=== PATIENT | female | born 1940 | race Caucasian/White ===

== ENCOUNTER → 2019-09-24 15:37 | Outpatient (CLI) | payer MEDICARE, OTHER, SELFPAY ==
[2019-09-25 20:45] LABS: COVID19 Sendout Not Detected (Not Detect)
== END ==
PROVIDERS: PCP Internal Medicine; Visit Provider Physician Assistant
DX: Z11.59 Encounter for screening for other viral diseases (principal)
CPT/HCPCS: 87635

== ENCOUNTER 2019-09-27 10:39 | Inpatient (IN) | payer MEDICARE, OTHER, SELFPAY ==
[2019-09-19 12:57] VITALS: BMI 34.3
[2019-09-27] VITALS (19 sets, daily range): BP systolic 104–155; BP diastolic 51–97; PULSE 16–77; RESP 12–19; TEMP 36.1–37.1; O2SAT 94–99; BMI 34.3
--- NOTE | 2019-09-27 | DI.RAD.S_ITS ---
PROCEDURE: XR CERVICAL SPINE 2V OR 3V INDICATIONS: C56 ANTERIOR CERVICAL DISCECTOMY WITH FUSION AND BONE GRAFT TECHNIQUE: 2 fluoroscopic view(s) of the cervical spine were acquired. [facility], [facility], 14:35. FINDINGS: C5-C6 disc level is identified. IMPRESSION: Fluoroscopic guidance was provided for cervical spine procedure. Dictated by: Harvey Castro M.D. on 09/27/2019 at 13:44 Approved by: Harvey Castro M.D. on 09/27/2019 at 13:49
--- NOTE | 2019-09-27 11:16 | PM.PREOP ---
Pre-operative Note COVID-19 COVID-19 status: Negative Result date/Date tested (Pos, Neg/Pending): 09/24/19 Interval Note History & Physical reviewed/Exam performed by Physician: Yes Changes to H&P: No H&P completed within 30 days and has changed as indicated here:: She had an asymptomatic UTI treated by urology with antibiotics last week. Currently asymptomatic.
--- NOTE | 2019-09-27 11:18 | PM.OP.1 ---
Operative Date/Time/Diagnoses Date of procedure: 09/27/19 Time of procedure: 13:04 Pre-op diagnosis: Cervical stenosis with myelopathy Post-op diagnosis: same Procedure & Clinicians Procedure: C5-6 anterior cervical diskectomy and fusion with cage Iliac crest bone graft aspirate Use of microscope Same procedure as scheduled: Yes Indications: [age] year old female with progressive myelopathy from cervical stenosis. They had failed conservative management and requested operative intervention. Risks and benefits of surgery were discussed and appropriate consents were obtained. Surgeon: Jerry Rojas Tool And Die Engineer: Fadumo Jung Anesthesia Type: General Operative Notes Findings: None Closure Type: primary Specimen(s): none sent Prosthetic devices, grafts, tissues, transplants, or devices: Delmy MARÍA ELENA-C Estimated Blood Loss (mL): 5 Procedure in detail: Patient was brought to the operating room and intubated on the table. A time-out was performed. Preoperative antibiotics were given. The neck was prepped and draped in the standard sterile fashion. Using a skin fold, we made a 3 cm oblique incision on the left side. We used Bovie to go through the platysma and then did a standard anterolateral blunt dissection down to the precervical fascia. Fascia was nicked and elevated up. A marker was placed and x-ray was taken for localization. We then subperiosteally elevated up the longus colli muscles. Self-retaining retractors were placed. Prospect pins were placed. We then brought in the microscope. A scalpel used to perform an annulotomy. We then used a combination of pituitaries and curettes and Kerrison to perform a complete anterior diskectomy at C5-6. We used the bur to take down the posterior osteophytes. We took down the PLL and used Kerrison to remove any posterior disc material and osteophytes. At the end we could from the nerve hook cephalad caudally and out the foramen and everything was opened. A small stab incision was made over the left anterior iliac crest. A Jamshidi needle was advanced into the pelvis and 2 mL of bone marrow was aspirated. We then used the trials. We then packed a 14 x 17 x 6 mm MARÍA ELENA-C cage with Primagen bone graft and the iliac crest harvest. The cage was placed under fluoroscopic guidance. We then placed our two locking plates. The self-retaining retractors and Prospect pins were removed and final x-rays taken. The wound was irrigated. There was no bleeding. The carotid was beating nicely. The platysma was closed. The superficial was closed. The skin was closed. A sterile dressing was placed. They were then extubated and brought to recovery room with no complications. Complications: none Post-operative Condition: stable Disposition: PACU Plan for aftercare: Inpatient for overnight admission. Mobilize with PT.
[2019-09-27] MEDS: LACTATED RINGERS 1,000 ML 42 ML IV (11:26)
[2019-09-27] MEDS: CEFAZOLIN 2 GM/100 ML FROZ.PIGGY IV ×2 (12:10→21:11)
--- NOTE | 2019-09-27 12:24 | SUR.OPER ---
Supine on padded OR bed, head on gel donut, towel between shoulder blades, arms padded and tucked at side, legs uncrossed, safety belt at thigh, tape over blanket over lower legs .
[2019-09-27] MEDS: THROMBIN (RECOMBINANT) 5,000 UNIT VIAL 5000 UNIT TOP (12:31)
[2019-09-27] MEDS: BUPIVACAINE 0.25% W/ EPI 30 ML VIAL 60 ML INJ (12:32)
[2019-09-27] MEDS: SODIUM CHLORIDE 0.9% 1,000 ML, GENTAMICIN 80 MG IRR (12:34)
[2019-09-27] MEDS: MORPHINE 10 MG/ML INJ IV ×2 (13:43→13:56)
[2019-09-27] MEDS: fentaNYL 100 MCG/2 ML INJ IV (13:43)
--- NOTE | 2019-09-27 15:05 | PC.NURSE ---
Day Shift- Report rec'd from INESSA Cabrera in PACU at 1420. Pt arrived to unit room 217 at 1432 via bed. Pt awake, does close eyes with conversation, awakens easily. States 6/10 aching to posterior left side of neck. Soft collar in place. Left hip bone graft site dressing of gauze and tegaderm CDI. Pt also has multiple abrasions and scabs to legs and arms. Pt oriented to call light, no urge to void. Brief report given to fur blender for admission. Evening RN aware that pt wants to speak with her daughter Geno. Bed alarm on.
[2019-09-27] MEDS: HYDROCODONE/ACET 5/325 TABLET 1 TAB PO (15:20)
[2019-09-27] MEDS: LACTATED RINGERS 1,000 ML 125 ML IV (15:21)
[2019-09-27] MEDS: NYSTATIN CREAM 30 GM 1 APPLIC TOP ×2 (16:26→21:13)
[2019-09-27] MEDS: GABAPENTIN 600 MG TABLET PO (21:11)
[2019-09-27] MEDS: DOCUSATE 100 MG CAPSULE PO (21:11)
[2019-09-27] MEDS: INSULIN GLARGINE 100 UNIT/ML 3ML PEN 20 UNIT SUBCUT (21:11)
[2019-09-27] MEDS: IRBESARTAN 150 MG TABLET PO (21:13)
[2019-09-27] MEDS: PANTOPRAZOLE 20 MG TABLET PO (21:14)
[2019-09-27] MEDS: ROSUVASTATIN 10 MG TABLET 5 MG PO (21:14)
[2019-09-27] MEDS: SENNOSIDES 8.6 MG TABLET 17.2 MG PO (21:15)
[2019-09-28] MEDS: LACTATED RINGERS 1,000 ML 125 ML IV (01:32)
[2019-09-28] MEDS: CEFAZOLIN 2 GM/100 ML FROZ.PIGGY IV (04:04)
[2019-09-28 05:00] VITALS: BP 157/61; PULSE 85; RESP 16; TEMP 36.8; O2SAT 94
--- NOTE | 2019-09-28 06:57 | PC.NURSE ---
Dr. Woodruff notified with CBG of 473, & desat. with 3 liters to 90-92 %. Coughing when she drink a sips of water. RT. notified suctioned her orally not able to suctioned any secretions. Pt. statesmy mouth is to dry. Order received to have medical consults, EDGARD Kilgore notified. Stat. lab glucose also ordered, will report to day RN.
[2019-09-28 07:12] LABS: BUN Creatinine Ratio 20.8 (6-22); Blood Urea Nitrogen 16 mg/dL (7-17); Calcium 8.9 mg/dL (8.4-10.2); Carbon Dioxide 32 mmol/L (22-32); Chloride 99 mmol/L (98-107); Estimated Glomerular Filt Rate > 60.0 mL/min (>60); Glucose 152 mg/dL (80-110); HEMOLYSIS < 15 (0-50); Magnesium 1.8 mg/dL (1.6-2.3); Phosphorous 4.2 mg/dL (2.8-4.1); Potassium 4.3 mmol/L (3.4-5.1); Sodium 134 mmol/L (137-145)
[2019-09-28] MEDS: INSULIN REGULAR 100 UNIT/ML 3 ML VIAL IV (07:15)
--- NOTE | 2019-09-28 07:34 | PM.EVENT ---
Event Note Date Patient Seen: 09/28/19 Time Patient Seen: 07:34 Event Note: Called by nursing approximately 6:50 a.m. Patient is day 1 status post cervical fusion with Dr. orona. Dressing found patient somewhat somnolent this morning. As sats 91% on 3 L increased this to 5 L--fingerstick glucose was in the 450s. Internal medicine was consulted. Insulin administered and frequent monitoring and fingerstick glucoses. And blood labs drawn.
[2019-09-28 08:00] VITALS: BP 125/67; PULSE 74; RESP 17; TEMP 36.6; O2SAT 95
--- NOTE | 2019-09-28 08:00 | P.PN_ITS ---
Subjective Subjective Date Patient Seen: 09/28/19 Time Patient Seen: 08:00 Interval history: She was very somnolent earlier this morning. She had a glucose of 473, but only 1-1/2 hours after a glucose of 182. She was given 5 units of insulin and her repeat check was 152. She is feeling a little bit groggy but waking up now. She just feels like she wants to cough up some phlegm in her throat. No arm pain but the neck is sore. Exam Vital Signs (past 8 hours): - 09/28/19 05:00 Temperature 98.2 F Pulse Rate 85 Respiratory Rate 16 Blood Pressure 157/61 H Pulse Oximetry 94 Oxygen Delivery Method Nasal Cannula Oxygen Flow Rate 0 Const Orientation: alert and oriented x3 Back/Spine/Pelvis Other: CDI. 5/5 motor except 4/5 left printed circuit board drafter Objective Labs Result Diagrams: 09/28/19 06:55 Labs: Laboratory Results - last 24 hr 09/28/19 09/28/19 06:55 06:55 Sodium 134 L Potassium 4.3 Chloride 99 Carbon Dioxide 32 BUN 16 Creatinine 0.77 Estimated GFR > 60.0 BUN/Creatinine Ratio 20.8 Glucose Cancelled 152 H Calcium 8.9 Phosphorus 4.2 H Magnesium 1.8 Assessment & Plan Post-op Postoperative Procedures: Procedures Operation Date: 09/27/19 12:15 Actual Procedures Side Surgeon p C56 anterior cervical discectomy & fusion w/ bone graft Jerry Rojas MD She only had 1 Vicodin yesterday and has not had any IV pain medication on the APR. I do not know if this was over sedation or hyperglycemia but she seems much more alert now. Her high blood sugar has quickly corrected back down to the normal range we will check a fingerstick again. I discussed this with Medicine and they will be available to see her if anything changes but for now she is back to baseline. Plan is to get her up with physical therapy today.
--- NOTE | 2019-09-28 09:10 | PT.IIE ---
Current Diagnoses Spinal stenosis, cervical region (09/27/19) Other cervical disc displacement, unspecified cervical region (09/27/19) Strain of muscle, fascia and tendon at neck level, initial encounter (09/27/19) Surgery Performed Operation Date: 09/27/19 12:15 Actual Procedures p C56 anterior cervical discectomy & fusion w/ bone graft - Jerry Rojas MD Surgical History (Last Updated 09/19/19 @ 13:28 by Sola Rizzo RN) History of arthroplasty of left knee (Acute ~2016) History of bladder surgery (Acute) History of hysterectomy (Acute) History of lumbar surgery (Acute) Hx of bilateral cataract extraction (Acute) Hx of breast reduction, elective (Acute) Hx of hernia repair (Acute) Hx of left breast biopsy (Acute) Hx of toe surgery (Acute) Hx of tonsillectomy (Acute) Hx of unilateral oophorectomy (Acute) Medical History (Last Updated 09/20/19 @ 12:18 by Sola Rizzo RN) Arthritis (Acute) Godfrey's esophagus (Acute) CAD (coronary artery disease) (Acute) Carotid artery disease (Acute) CKD (chronic kidney disease) (Acute) Depression (Acute) Diabetes (Acute) GERD (gastroesophageal reflux disease) (Acute) HLD (hyperlipidemia) (Acute) HTN (hypertension) (Acute) Poor balance (Acute) Tremor of both hands (Acute) Physical Therapy Inpatient Evaluation/Re-Eval M1 PT/OT-IP Prior Functional Status Start: 09/28/19 11:42 Freq: NEEDED Status: Active Protocol: Document 09/28/19 09:10 AB (Rec: 09/28/19 11:56 AB [id number]) Medical Review Prior Functional Status Medical History Reviewed Yes Communication able to make needs known but with confusion Mobility and Gait pt stated that she is modified independent with all mobilities and ambulation using either a FWW or a SPC indoors but occasionally without AD and uses a 4WW for outdoor mobility Social History Household Members children Living Arrangements Mobile home Number of Floors (Floors) One Floor Number of Stairs To Enter/Railing? 4 steps to enter with L rail ascending Home Environment High Toilet,Walk in Shower Home Equipment Front Wheel Walker,Four Wheel Walker,Straight Cane,Shower Seat with Backrest,Hand Held Shower,Grab Bars Near Toilet, Grab Bars In Shower Additional Social History Comment has a regular bed with R sided rail M2 PT-IP Current Condition Start: 09/28/19 11:42 Freq: NEEDED Status: Active Protocol: Document 09/28/19 09:10 AB (Rec: 09/28/19 11:56 AB [email or web address]) Physical Therapy Current Condition Current Condition Evaluation Date 09/28/19 Treatment Diagnosis s/p C5-6 ACDF; difficulty in walking Onset Date 09/27/19 Precautions Cervical Spine Precautions Soft Collar for Comfort,No Heavy Lifting,Log Roll Other Precautions falls M3 PT-IP Subjective Start: 09/28/19 11:42 Freq: NEEDED Status: Active Protocol: Document 09/28/19 09:10 AB (Rec: 09/28/19 11:56 AB [email or web address]) Subjective Physical Therapy Visit Type Type Initial Evaluation Visit Start Time 09:10 Visit Stop Time 10:00 Total Visit Minutes 50 Number of SITE SAFETY COORDINATOR Visits 0 Physical Therapy Visit Comments Patient Comments pt is drowsy and requires constant cues to stay awake; requested to use the toilet M4 PT-IP Mobility and Gait Start: 09/28/19 11:42 Freq: NEEDED Status: Active Protocol: Document 09/28/19 09:10 AB (Rec: 09/28/19 11:56 AB [email or web address]) PT-Bed Mobility Assessment Rolling Type of Rolling Log Rolling Level of Assist Maximal Assistance,1 Person Assistance,2 Person Assistance Supine to Sit Supine to Sit Maximum Assistance,2 Person Assistance Sit to Supine Sit to Supine Bedrails Scooting Scooting to Edge of Bed Maximum Assistance PT-Transfer Assessment Sit to and From Stand Sit to and from Stand Maximum Assistance,2 Person Assistance,Use of Upper Extremities Equipment Transfer Assistive Device Gait Belt,Front Wheeled Walker Orthotic/Prosthetic Devices or Brace: No Transfers Transfer Destination Bedside Commode Transfer Technique Stand Step Pivot Transfer Ability Level of Assist Maximum Assistance,2 Person Assistance,Use of Upper Extremities Comments Mobility Comments educated on cervical precautions. pt is very drowsy but agreeable to get up and requested to use the toilet. completed log roll supine to sit max A x 2 and max cues requiring 3 attempts to complete the task. pt required max A for scooting to EOB. required mod A to maintain sitting balance on EOB. completed max A x 2 for sit to stand from EOB x 2 attempts. completed step transfer using FWW to bedside commode. completed sit to stand max A x 2 from bedside commode. pt able to maintain standing using FWW for support max A while NAC assisted pt with hygiene care and brief management. completed step transfer to chair max A x 2 and max cues. positioned pt on chair. call light and table placed within reach. Gait Assessment Comments Gait Comments unable at this time but able to take steps during transfers max A x 2 PT-Balance Assessment Sitting Balance and Reactions Static Sitting Balance Ability Fair Dynamic Sitting Balance Ability Poor Standing Balance and Reactions Static Standing Balance Ability Poor Dynamic Standing Balance Ability Poor Device Used FWW M5 PT-IP Objective Assessments Start: 09/28/19 11:42 Freq: NEEDED Status: Active Protocol: Document 09/28/19 09:10 AB (Rec: 09/28/19 11:56 AB [email or web address]) Orientation Orientation/Cognition Level of Alertness Lethargic Orientation Name Language Function Ability Hard of Hearing Safety Awareness Decreased Safety Awareness Memory Description Short Term Impaired Gross Range of Motion Lower Extremity ROM Assessment Within Functional Limits Strength Lower Extremity Strength Hip 4-/5 Knee 4-/5 Muscle Tone Muscle Tone WNL Yes M6 PT-IP Treatment Start: 09/28/19 11:42 Freq: NEEDED Status: Active Protocol: Document 09/28/19 09:10 AB (Rec: 09/28/19 11:56 AB [email or web address]) Physical Therapy Treatment Education Education Provided Precautions,Post-Op Packet, Safety M7 PT-IP Assessment and Plan Start: 09/28/19 11:42 Freq: NEEDED Status: Active Protocol: Document 09/28/19 09:10 AB (Rec: 09/28/19 11:56 AB [email or web address]) PT Summary Assessment and Plan Potential Rehabilitation Potential Good Status of Condition at Evaluation Evolving Summary Impairments Pain,ROM,Strength,Balance, Coordination,Sensation,Tone, Cognition,Bed Mobility, Transfers,Gait,Activity Tolerance Assessment Summary pt requiring max A x 2 with mobility at this time and unable to ambulate. d/c plan depending on progress but requires SNF rehab at this time. will continue to assess progress. caregiver training will be conducted when appropriate as well as stair climbing training. Goals Bed Mobility Goal Standby Assistance Transfer Goal Standby Assistance,Front Wheeled Walker Gait Goal Standby Assistance,Front Wheel Walker Gait Distance 100 Other Goals up/down 4 steps L rail ascending SBA Days to Meet Goals 5 Frequency of Treatment Frequency Of Treatment Twice a Day Treatment Plan Physical Therapy Treatment Plan Bed Mobility Training,Transfer Training,Gait Training, Therapeutic Exercise,Balance Retraining,Post Op Education, Discharge Planning,Hot or Cold Pack,Neuromuscular Re-ed, Coordination Retraining,Manual Therapy Other Recommendations and Next Treatment transfers, ambulation Focus Recommendations To Nursing Amount of Assist Needed 2 Person Assist Discharge Recommendations PT Discharge Recommendations Home with 01/09 Assist,Home Health,SNF Rehab Transportation Needs at Discharge Private Vehicle,Wheelchair/ Cabulance
--- NOTE | 2019-09-28 09:16 | CM.DANOTE ---
DCP: Case received, EMR reviewed and met with patient. Introduced self and role. Was able to obtain information from patient regarding her baseline activity level prior to surgery, and her living situation. DCP assessment completed with information currently available. Patient is a 79 year old female who admitted yesterday morning to the care of the orthopedic team. PCP: Dr. Ramires. Payer: confirmed: Medicare/[facility]. Patient came to the hospital for a surgical procedure. She had a C5-6 anterior cervical diskectomy and fusion. Patient has history of cervical stenosis. Patient also has history of falls at home secondary to balance issues. Met with patient in her room. She is alert and oriented. She was sitting up in bed, wearing cervical collar. Patient indicated that she resides with her daughter, Geno, assists her at home. Patient confirmed that she has had some falls at home, she does not have a life line, for her daughter is there. She uses a walker, as well as a cane at baseline. She does not drive. Her daughter helps her with showers, med set up, and meals. P: DCP to continue to follow. Will be available for any resources. Patient should be able to go home when stable, and when cleared by orthopedic as well as therapy team. Farrah Fu RN/[employer] Brakeman
[2019-09-28] MEDS: CITALOPRAM 20 MG TABLET 40 MG PO (10:40)
[2019-09-28] MEDS: DOCUSATE 100 MG CAPSULE PO ×2 (10:41→20:53)
[2019-09-28] MEDS: NYSTATIN CREAM 30 GM 1 APPLIC TOP ×2 (10:41→20:54)
[2019-09-28] MEDS: PANTOPRAZOLE 20 MG TABLET PO ×2 (10:41→20:53)
[2019-09-28] MEDS: INSULIN ASPART 100 UNIT/ML INSULN PEN SUBCUT ×3 (10:42→17:35)
[2019-09-28 11:12] VITALS: BP 114/59; PULSE 71; RESP 16; TEMP 36.9; O2SAT 94
--- NOTE | 2019-09-28 11:16 | PC.NURSE ---
Addendum entered by Ania Morin R.N. 09/28/19 15:11: Patient now on RA, she is up to commode and going to back to bed with 2 person assist. Addendum entered by Ania Morin R.N. 09/28/19 13:47: Patient put back to bed, not following ques well, she is groggy. She knows where she is and able to lift both of her arms and legs up. No deficits noticed, smile is symmetrical. Patients is just groggy. Original Note: Patient is alert but groggy this morning. BS read over 400 this am with our blood glucose monitor. Before any insulin given, blood test ordered. Patients blood sugar in the 150s, 5u given of regular insulin before results back. Patients last bs in the 160s and patient has been stable. She is a 2 person assist with physical therapy, and was slow to move this morning. She just got up to the commode as she was incontinent now x2 and did move better. She denies pain, knows that she is in the hospital and is comfortable. Dressing to l.iliac crest wnl and dressing to anterior neck cdi, with soft collar on. She was lethargic this am and on 5l of o2, she is now on 2l of o2 and sats are mid 90s. She is more awake and sitting up in the chair.
--- NOTE | 2019-09-28 13:28 | PT.IPTN ---
Current Diagnoses Spinal stenosis, cervical region (09/27/19) Other cervical disc displacement, unspecified cervical region (09/27/19) Strain of muscle, fascia and tendon at neck level, initial encounter (09/27/19) Surgery Performed Operation Date: 09/27/19 12:15 Actual Procedures p C56 anterior cervical discectomy & fusion w/ bone graft - Jerry Rojas MD Physical Therapy Treatment Note M2 PT-IP Current Condition Start: 09/28/19 11:42 Freq: NEEDED Status: Active Protocol: Document 09/28/19 09:10 AB (Rec: 09/28/19 11:56 AB [email or web address]) Physical Therapy Current Condition Current Condition Evaluation Date 09/28/19 Treatment Diagnosis s/p C5-6 ACDF; difficulty in walking Onset Date 09/27/19 Precautions Cervical Spine Precautions Soft Collar for Comfort,No Heavy Lifting,Log Roll Other Precautions falls M3 PT-IP Subjective Start: 09/28/19 11:42 Freq: NEEDED Status: Active Protocol: Document 09/28/19 13:28 AB (Rec: 09/28/19 15:54 AB [email or web address]) Subjective Physical Therapy Visit Type Type Treatment Note Visit Start Time 13:28 Visit Stop Time 13:56 Total Visit Minutes 26 Number of SIGN DESIGNER Visits 0 Physical Therapy Visit Comments Patient Comments pt is agreeable to do PT; continues to be drowsy Therapy Pain Assessment Pain Present Pain Present Denied Pain M4 PT-IP Mobility and Gait Start: 09/28/19 11:42 Freq: NEEDED Status: Active Protocol: Document 09/28/19 13:28 AB (Rec: 09/28/19 15:54 AB [email or web address]) PT-Bed Mobility Assessment Sit to Supine Sit to Supine Maximum Assistance,1 Person Assistance,Bedrails Scooting Scooting to Edge of Bed Maximum Assistance Scooting Up and Down in Bed Maximum Assistance PT-Transfer Assessment Sit to and From Stand Sit to and from Stand Maximum Assistance,2 Person Assistance,Use of Upper Extremities Equipment Transfer Assistive Device Gait Belt,Front Wheeled Walker Orthotic/Prosthetic Devices or Brace: Yes Transfers Transfer Destination Bed,Bedside Commode Transfer Technique Stand Step Pivot Transfer Ability Level of Assist Maximum Assistance,1 Person Assistance,2 Person Assistance ,Use of Upper Extremities Comments Mobility Comments pt sitting on chair. requested to use the toilet. completed sit to stand x 2 attempts from chair requiring max A x 2 and max cues. pt with difficulty following directions and needs increase time to complete task. completed step transfer using FWW max A x 1-2 and max cues. pt requires max A x 2 for sit to stand from bedside commode and required max A and max cues to maintain standing balance using FWW while nurse assisted with hygiene care. pt ambulated ~ 3 ft towards the bed max A x 1-2 and max cues. completed log roll bed mobility sit to supine max A and max cues. positioned in bed max A and max cues. call light and table placed within reach. Gait Assessment Gait Gait Assistance Required: Maximum Assistance,1 Person Assist,2 Person Assist Distance (Feet) 3 Able to Maintain Weight Bearing Status Yes During Gait Assistive Devices Assistive Device Gait Belt,Front Wheeled Walker Orthotic/Prosthetic Devices or Brace: No Gait Deviations General Gait Pattern Antalgic,Decreased Stride Length,Decreased Feet Clearance,Flexed Trunk,Step-to Gait Factors Limiting Gait Function Factors Limiting Gait Function Decreased Activity Tolerance, Decreased Strength,Difficulty Following Directions,Limited Range of Motion,Poor Balance, Poor Safety Awareness Comments Gait Comments pls refer to mobility section for details M5 PT-IP Objective Assessments Start: 09/28/19 11:42 Freq: NEEDED Status: Active Protocol: Document 09/28/19 09:10 AB (Rec: 09/28/19 11:56 AB [email or web address]) Orientation Orientation/Cognition Level of Alertness Lethargic Orientation Name Language Function Ability Hard of Hearing Safety Awareness Decreased Safety Awareness Memory Description Short Term Impaired Gross Range of Motion Lower Extremity ROM Assessment Within Functional Limits Strength Lower Extremity Strength Hip 4-/5 Knee 4-/5 Muscle Tone Muscle Tone WNL Yes M6 PT-IP Treatment Start: 09/28/19 11:42 Freq: NEEDED Status: Active Protocol: Document 09/28/19 13:28 AB (Rec: 09/28/19 15:54 AB [email or web address]) Physical Therapy Treatment Education Education Provided Safety M7 PT-IP Assessment and Plan Start: 09/28/19 11:42 Freq: NEEDED Status: Active Protocol: Document 09/28/19 13:28 AB (Rec: 09/28/19 15:54 AB [email or web address]) PT Summary Assessment and Plan Potential Rehabilitation Potential Fair Summary Impairments Pain,ROM,Strength,Balance, Coordination,Sensation,Tone, Cognition,Bed Mobility, Transfers,Gait,Activity Tolerance Progress Towards Goals Slow Progress due to Medical Issues,Slow Progress due to Activity Tolerance,Slow Progress - Other Assessment Summary pt continues to require 2 person max A with mobility and has difficulty following directions. pt continues to be drowsy and requires increase reaction time to complete any tasks and max cues provided. pt will require SNF rehab to improve strength and mobility. Goals Bed Mobility Goal Standby Assistance Transfer Goal Standby Assistance,Front Wheeled Walker Gait Goal Standby Assistance,Front Wheel Walker Gait Distance 100 Other Goals up/down 4 steps L rail ascending SBA Days to Meet Goals 5 Frequency of Treatment Frequency Of Treatment Twice a Day Treatment Plan Physical Therapy Treatment Plan Bed Mobility Training,Transfer Training,Gait Training, Therapeutic Exercise,Balance Retraining,Post Op Education, Discharge Planning,Hot or Cold Pack,Neuromuscular Re-ed, Coordination Retraining,Manual Therapy Other Recommendations and Next Treatment transfers, ambulation Focus Recommendations To Nursing Amount of Assist Needed 2 Person Assist Discharge Recommendations PT Discharge Recommendations Home with / Assist,Home Health,SNF Rehab Transportation Needs at Discharge Private Vehicle,Wheelchair/ Cabulance
--- NOTE | 2019-09-28 14:51 | ST.IPSCREEN ---
Swallow screen performed. Patient is coughing/clearing throat occasionally with both solids and liquids. Taking small bites/sips, but needing cues to slow down and not talk while eating. Patient said she choked on oranges at lunchtime. Her sister reports she ate meat loaf last night without difficulty. HEAD LOADER provided verbal and written education re: safe swallowing strategies. Patient is somewhat confused and may benefit from cognitive evaluation tomorrow if not thinking clearly by then. Recommend 1:1 supervision during meals with reminders to implement safe swallow precautions - slow rate, small bites/sips, sit upright for meals, chew food thoroughly, don't talk when eating.
--- NOTE | 2019-09-28 14:53 | CM.DPC ---
Addendum entered by Farrah Fu R.N. 09/28/19 15:42: Spoke to Mj Resendiz, and stated that patient and sister are electing to go to [facility]. Went ahead and called July at [facility]. She will look at referral. Let her know that patient will be eligable for [facility] by Thursday, as this will be third midnight.. Original Note: DCP Cont: It is noted from P.T. notes, that she has been a two person assist. Confirmed this with nursing, and HEALTH OUTREACH WORKER, as well. Patient's sister, Radha Boles, was here in the room at bedside. She lives in [place], and she is patient's DPOA. Her phone number is: [phone]. Patient has Medicare, and was inpatient status as of yesterday. Also, confirmed that patient had been on home health services before, with [facility]. Brought in Medicare Choice List. Discussed with patient and sister. Patient stated, at one time she had been at [facility], and had a bad experience there. Let her know that there are other facilities in the [facility] area. Did let sister know, that facilities can't be visited at this time, due to COVID precautions. She will research [facility] and [facility]. Stated to hold off before sending any referrals, to see if she improves tomorrow, and after facilities have been checked out. Sister mentioned that her son can stay with patient for a while, along with daughter, to help with transfers, but not upholstery bundler. Other option is home health. P: DCP to continue to follow. Will check in tomorrow and see how she does. Will also check in with Dr. Rojas as well. Farrah Fu, INESSA/Digital Recruiter
--- NOTE | 2019-09-28 15:43 | OT.IP.EVAL ---
Current Diagnoses Spinal stenosis, cervical region (09/27/19) Other cervical disc displacement, unspecified cervical region (09/27/19) Strain of muscle, fascia and tendon at neck level, initial encounter (09/27/19) Surgery Performed Operation Date: 09/27/19 12:15 Actual Procedures p C56 anterior cervical discectomy & fusion w/ bone graft - Jerry Rojas MD Past Medical History (Last Updated 09/20/19 @ 12:18 by Sola Rizzo, RN) Arthritis (Acute) Godfrey's esophagus (Acute) CAD (coronary artery disease) (Acute) Carotid artery disease (Acute) CKD (chronic kidney disease) (Acute) Depression (Acute) Diabetes (Acute) GERD (gastroesophageal reflux disease) (Acute) HLD (hyperlipidemia) (Acute) HTN (hypertension) (Acute) Poor balance (Acute) Tremor of both hands (Acute) Surgical History (Last Updated 09/19/19 @ 13:28 by Sola Rizzo RN) History of arthroplasty of left knee (Acute ~2016) History of bladder surgery (Acute) History of hysterectomy (Acute) History of lumbar surgery (Acute) Hx of bilateral cataract extraction (Acute) Hx of breast reduction, elective (Acute) Hx of hernia repair (Acute) Hx of left breast biopsy (Acute) Hx of toe surgery (Acute) Hx of tonsillectomy (Acute) Hx of unilateral oophorectomy (Acute) Occupational Therapy Inpatient Evaluation/Re-Eval M1 PT/OT-IP Prior Functional Status Start: 09/28/19 15:54 Freq: NEEDED Status: Active Protocol: Document 09/28/19 14:30 [facility] (Rec: 09/28/19 16:21 [facility] [id number]) Medical Review Prior Functional Status Medical History Reviewed Yes Communication able to make needs known but with confusion Mobility and Gait pt stated that she is modified independent with all mobilities and ambulation using either a FWW or a SPC indoors but occasionally without AD and uses a 4WW for outdoor mobility Pt does admit that she has fallen 3-4 times in the past months and at times needing assist to stand up from the chair. Activities of Daily Living and IADL's Pt states was able to do ADl needs, however at times her daughter would just assist for LB dressing needs and mainly just SBA for showering needs. Social History Household Members children Living Arrangements Mobile home Number of Floors (Floors) One Floor Number of Stairs To Enter/Railing? 4 steps to enter with L rail ascending Home Environment High Toilet,Walk in Shower Home Equipment Front Wheel Walker,Four Wheel Walker,Straight Cane,Shower Seat with Backrest,Hand Held Shower,Grab Bars Near Toilet, Grab Bars In Shower Additional Social History Comment has a regular bed with R sided rail M2 OT-IP Current Condition Start: 09/28/19 15:54 Freq: Status: Active Protocol: Document 09/28/19 14:30 [facility] (Rec: 09/28/19 16:21 [facility] [id number]) Occupational Therapy Current Condition Current Condition Evaluation Date 09/28/19 Treatment Diagnosis Cervical stenosis, s/p c5-6 ant. cervical discectomy and fusion Diagnosis Onset Date 09/27/19 Post Operative Precautions Cervical Spine Precautions Soft Collar for Comfort,No Heavy Lifting,Log Roll M3 OT- IP Subjective and Pain Start: 09/28/19 15:54 Freq: Status: Active Protocol: Document 09/28/19 14:30 [facility] (Rec: 09/28/19 16:21 [facility] [id number]) OT- Subjective Occupational Therapy Visit Type Type Initial Evaluation Visit Start Time 14:30 Visit Stop Time 15:43 Total Visit Minutes 73 Occupational Therapy Visit Comments Patient Comments Pt willing to get up and having to use the bathroom. Pt 's sister came in midway through the session. Patient/Caregiver Goals Pt wanting to go home. OT Pain Assessment Pain When Pain Assessed During Mobility Pain Present Pain Present Pain Reported Location neck Pain Behaviors Facial Grimacing,Holding Area M4 OT- IP ADL's Start: 09/28/19 15:54 Freq: Status: Active Protocol: Document 09/28/19 14:30 [facility] (Rec: 09/28/19 16:21 [facility] [id number]) OT [id number] Comments OT Self-Feeding Comments Pt needing cues to be sure to sit upright while eating. Pt needing assist for set-up. AIR CARRIER MAINTENANCE INSPECTOR present in the beginning of the session to go over eating/swallowing strategies. Pt forgetful and still needing reminders. OT ADL-Grooming Comments OT Grooming Comments Not performed. OT ADL-Dressing General Eval Lower Body Dressing Ability Total Assistance Comments OT Dressing Comments Total assist for brief and socks management at this time. OT ADL-Toileting General Evaluation Toileting Ability Maximum Assistance Areas Needing Assistance Manage Clothing,Perform Perineal Hygiene Devices Toileting Assistive Devices Commode Comments OT Toileting Comments One person to stand with pt form BSC with FWW MAX X 1 while nursing able to assist for pericare and brief management needs. OT ADL-Bathing Bathing Type Bathing Type Sponge Bath General Evaluation Bathing Ability Maximal Assistance Areas Needing Assistance Wash/Dry Perineal Area Comments OT Bathing Comments Prior to coming in, pt states spilled coffee on her chest, nursing notified and able to place ice pack on her for several minutes to help cool her skin down. While sitting on the BSC, Pt able to assist to wash her chest and arm off with a wash cloth. M5 OT- IP IADL's Start: 09/28/19 15:54 Freq: Status: Active Protocol: Document 09/28/19 14:30 [facility] (Rec: 09/28/19 16:21 [facility] [id number]) OT-Instrumental Activities of Daily Living Home Safety Awareness Home Safety Comments At this time due to decreased activity tolerance and balance , increased confusion, and poor safety awareness. Pt will need to have assist for all ADl and IADl needs. Medication Management Medication Management Caregiver Administers Money Management Money Management Caregiver Provides Assistance Meal Preparation Meal Preparation Caregiver Provides Assist Eligibility Examiner Eligibility Examiner Caregiver Provides Assist M6 OT- IP Functional Cognition Start: 09/28/19 15:54 Freq: Status: Active Protocol: Document 09/28/19 14:30 [facility] (Rec: 09/28/19 16:21 [facility] [id number]) Cognitive Factors Limiting Selfcare Function Cognitive Ability Level of Alertness Alert,Confusional State Patient Orientation Name Attention Span Ability Capable of Focused Attention, Unable to Sustain Attention Ability to Follow Commands Able to Follow One Step Commands with Increased Time, Able to Follow One Step Commands with Repetition Memory Description Short Term Impaired Safety Awareness Underestimates Need for Assistance Problem Solving Ability Unable to Identify Errors, Needs Assist to Identify Solutions Cognitive Comments Cognitive Assessment Comments Pt per sister much more confused than usual. Nursing aware. Pt needing step by step instruction for mobility, ADl's, safety awareness, and how to use the FWW. Questionable whether pain medications are making her groggy, confused or whether this is new onset of confusion. To formally assess pt's cognition tomorrow. Twice pt has forgotten that the call light was placed in front on her on her abdomen. OT- Vision and Hearing OT- Hearing Assessment OT- Hearing Assessment WFL M7 OT- IP Mobility and Balance Start: 09/28/19 15:54 Freq: Status: Active Protocol: Document 09/28/19 14:30 [facility] (Rec: 09/28/19 16:21 [facility] [id number]) OT- Bed Mobility Assessment Rolling Type of Rolling Roll to Right Level of Assistance Maximum Assistance Supine to Sit Supine to Sit Assist Maximum Assistance,Total Assistance,1 Person Assistance ,Bedrails Sit to Supine Sit to Supine Assist Maximum Assistance,2 Person Assistance,Bedrails Scooting Scooting to Edge of Bed Maximum Assistance,1 Person Assistance OT-Transfer Assessment Sit to and From Stand Sit to and from Stand Maximum Assistance,2 Person Assistance Transfers Transfer Ability Maximum Assistance,2 Person Assistance Technique Transfer Destination Bed,Bedside Commode Transfer Technique Stand Step Pivot Devices Transfer Assistive Devices Gait Belt,Front Wheeled Walker Comments Mobility Comments MAX A and use of bed rail to assist to roll right and heavy use of green pad to help get to side lying. Pt not able to help to get up from side lying and total assist from therapist at this time. Pt needing assist for balance, weight shifting, guiding the FWW and assist to help move her legs at this time MAX AX 2 with FWW. Noted pt buckling at her knee and at times needing assist to keep her right leg straight while trying to move her left leg over so able to take a few side steps to the head of the bed. At this time due to decreased safety awareness, ability to follow directions best for nursing if pt having to get up to use the lila lift to bsc, or bed [place]. OT- Gait Assessment Comments Gait Ability Comments Transfer only at this time. OT- Balance Assessment Sitting Balance and Reactions Static Sitting Balance Ability Poor Dynamic Sitting Balance Ability Poor Standing Balance and Reactions Static Standing Balance Ability Poor Dynamic Standing Balance Ability Poor Comments Other Balance Tests/Deviations/Treatment Pt leaning backwards into : posterior tilt and needing cues to lean forwards and needing DESTINEE initially and then once able to get her feet on the floor was able to sit at the edge of bed with SBA. Pt has difficulty to stand upright and tends to lean backwards at this time and unaware that she is doing so. M8 OT- IP Objective Assessments Start: 09/28/19 15:54 Freq: Status: Active Protocol: Document 09/28/19 14:30 [facility] (Rec: 09/28/19 16:21 [facility] [id number]) OT Strength Comments Strength Comments Not formally tested at least 3 -/5 throughout. Pt not able to use her BUE to help push up from side lying. M9 OT- IP Assessment and Plan Start: 09/28/19 15:54 Freq: Status: Active Protocol: Document 09/28/19 14:30 [facility] (Rec: 09/28/19 16:21 [facility] [id number]) OT Summary Assessment and Plan Potential Rehabilitation Potential Fair Analytic Complexity at Evaluation Low Summary OT Impairments Pain,Strength,Balance, Functional Cognition, Functional Mobility,Self- Feeding,Grooming,Dressing, Toileting,Bathing,Toilet Transfers,Shower Transfers, Activity Tolerance Progress Towards Goals Slow Progress due to Pain,Slow Progress due to Medical Issues,Slow Progress due to Activity Tolerance,Slow Progress due to Cognition Assessment Summary Pt low complexity after s/p C5 -6 ACDF now needing extensive assist x2 for bed mobility and ADl needs. Pt having difficulty to weight shift, stand to midline, and following directions as per sister feels that she is more confused than usual. Pt lives with her daughter who assist her prior, but at this time pt's care is too great and would not be safe to go home. Pt has 4 steps to enter the house as well. In addition, per sister pt has fallen 3-4 times in the past month. Therefore after talking to pt and sister both agreed that it would be best for pt to go to skilled rehab prior to going home. Goals Grooming Goal Independent Dressing Goal Independent Toileting Goal Independent Bathing Goal Standby Assistance Toilet Transfer Goal Independent Shower Transfer Goal Independent Patient/Caregiver Education Goal Demonstrate Post-Op Precautions,Caregiver Independent Assisting Patient Days to Meet Goals 20 Frequency of Treatment Frequency Of Treatment Once a Day Treatment Plan OT Treatment Plan ADL Training,Functional Cognition Training,Functional Mobility,Patient/Family Education,Discharge Planning Other Treatment Recommendations and Next [place] [facility] [facility] [place]. Treatment Focus Discharge Recommendations OT Discharge Recommendations SNF Rehab Home Equipment Needs Defer to SNF
[2019-09-28 15:51] VITALS: BP 130/61; PULSE 62; RESP 18; TEMP 36.3; O2SAT 92
[2019-09-28] MEDS: HYDROCODONE/ACET 5/325 TABLET 1 TAB PO (17:34)
[2019-09-28 20:40] VITALS: BP 130/51; PULSE 69; RESP 18; TEMP 36.3
[2019-09-28] MEDS: GABAPENTIN 600 MG TABLET PO (20:53)
[2019-09-28] MEDS: IRBESARTAN 150 MG TABLET PO (20:53)
[2019-09-28] MEDS: ROSUVASTATIN 10 MG TABLET 5 MG PO (20:53)
[2019-09-28] MEDS: INSULIN GLARGINE 100 UNIT/ML 3ML PEN 20 UNIT SUBCUT (20:54)
[2019-09-28 23:35] VITALS: BP 131/59; PULSE 104; RESP 18; TEMP 36.7; O2SAT 94
[2019-09-29 05:35] VITALS: BP 144/57; PULSE 72; RESP 16; TEMP 36.3; O2SAT 93
--- NOTE | 2019-09-29 06:43 | PM.PNPO.1 ---
Subjective Subjective Date Patient Seen: 09/29/19 Time Patient Seen: 06:43 Interval history: She is feeling better pain moore. However, she just feels globally weak all over. She required 2 person assist for mobility yesterday. Exam Vital Signs (past 8 hours): - 09/28/19 23:35 09/29/19 05:35 Temperature 98.0 F 97.4 F L Pulse Rate 104 H 72 Respiratory Rate 18 16 Blood Pressure 131/59 L 144/57 H Pulse Oximetry 94 93 Oxygen Delivery Method Nasal Cannula Oxygen Flow Rate 2 Const Orientation: alert and oriented x3 Back/Spine/Pelvis Other: CDI. 5/5 motor both upper extremities except for 4/5 left software firmware engineer. 5/5 motor both lower extremities. Objective Labs Result Diagrams: 09/28/19 06:55 Labs: Laboratory Results - last 24 hr 09/28/19 09/28/19 06:55 06:55 Sodium 134 L Potassium 4.3 Chloride 99 Carbon Dioxide 32 BUN 16 Creatinine 0.77 Estimated GFR > 60.0 BUN/Creatinine Ratio 20.8 Glucose Cancelled 152 H Calcium 8.9 Phosphorus 4.2 H Magnesium 1.8 Assessment & Plan Post-op Postoperative Procedures: Procedures Operation Date: 09/27/19 12:15 Actual Procedures Side Surgeon p C56 anterior cervical discectomy & fusion w/ bone graft Jerry Rojas MD Her neuro exam is improved compared to preoperatively. Her legs have no focal deficits. I am going to check a CT scan of her cervical spine to make sure there is no hematoma or other cause for weakness. Continue to mobilize with physical therapy. She is considering snf due to her low mobility but we will try again today.
[2019-09-29 08:00] VITALS: BP 133/62; PULSE 73; RESP 16; TEMP 36.7; O2SAT 92
--- NOTE | 2019-09-29 08:08 | DI.CT.S_ITS ---
PROCEDURE: CT CERVICAL SPINE WO CON INDICATIONS: s/p surgery, weakness TECHNIQUE: Noncontrast 3 mm thick sections acquired from the skull base to the T4 level. Sagittal and coronal reformats were then constructed. For radiation dose reduction, the following was used: automated exposure control, adjustment of mA and/or kV according to patient size. COMPARISON: [facility], CT, CT CERVICAL SPINE WO CON, 10/03/2016, 17:29. FINDINGS: Image quality: Excellent. Bones: No acute fracture. Straightening of the normal cervical lordosis. Postsurgical changes related to interbody cage graft at C5-C6 with anterior retaining pins. There is interval increase in the C5-C6 disc space height. 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 Multilevel degenerative endplate sclerosis and spurring. Diffuse facet arthropathy. Mild narrowing of the remaining cervical disc spaces. Diffuse osteopenia. Carotid atherosclerotic plaques incidentally noted. Enlarged left lobe of the thyroid with nonspecific calcifications. This appears unchanged since 10/03/16 however could be further assessed with dedicated carotid ultrasound if not already performed. Scattered soft tissue gas in the left anterior neck probably postoperative. IMPRESSION: Postsurgical changes as above, at the level of C5-C6. Expected postoperative alignment. Elsewhere, multilevel cervical spondylosis and facet arthropathy which appears grossly unchanged. Dictated by: Sharif Gupta M.D. on 09/29/2019 at 8:37 Approved by: Sharif Gupta M.D. on 09/29/2019 at 8:46
[2019-09-29] MEDS: DOCUSATE 100 MG CAPSULE PO ×2 (09:41→20:30)
[2019-09-29] MEDS: PANTOPRAZOLE 20 MG TABLET PO ×2 (09:41→20:30)
[2019-09-29] MEDS: NYSTATIN CREAM 30 GM 1 APPLIC TOP ×2 (09:41→20:33)
[2019-09-29] MEDS: CITALOPRAM 20 MG TABLET 40 MG PO (09:41)
--- NOTE | 2019-09-29 11:16 | PT.IPTN ---
Current Diagnoses Spinal stenosis, cervical region (09/27/19) Other cervical disc displacement, unspecified cervical region (09/27/19) Strain of muscle, fascia and tendon at neck level, initial encounter (09/27/19) Surgery Performed Operation Date: 09/27/19 12:15 Actual Procedures p C56 anterior cervical discectomy & fusion w/ bone graft - Jerry Rojas MD Physical Therapy Treatment Note M2 PT-IP Current Condition Start: 09/28/19 11:42 Freq: NEEDED Status: Active Protocol: Document 09/28/19 09:10 AB (Rec: 09/28/19 11:56 AB [id number]) Physical Therapy Current Condition Current Condition Evaluation Date 09/28/19 Treatment Diagnosis s/p C5-6 ACDF; difficulty in walking Onset Date 09/27/19 Precautions Cervical Spine Precautions Soft Collar for Comfort,No Heavy Lifting,Log Roll Other Precautions falls M3 PT-IP Subjective Start: 09/28/19 11:42 Freq: NEEDED Status: Active Protocol: Document 09/29/19 10:52 [place] (Rec: 09/29/19 13:44 [place] [email or web address]) Subjective Physical Therapy Visit Type Type Treatment Note Visit Start Time 10:52 Visit Stop Time 11:16 Total Visit Minutes 24 Number of MOBILE HOME TECHNICIAN Visits 1 Physical Therapy Visit Comments Patient Comments Pt agreeable to work with therapy. M4 PT-IP Mobility and Gait Start: 09/28/19 11:42 Freq: NEEDED Status: Active Protocol: Document 09/29/19 10:52 [place] (Rec: 09/29/19 13:44 [place] [id number]) PT-Bed Mobility Assessment Rolling Type of Rolling Log Rolling,Roll to Right Level of Assist Moderate Assistance,1 Person Assistance Supine to Sit Supine to Sit Maximum Assistance,1 Person Assistance,Bedrails Sit to Supine Sit to Supine Moderate Assistance,1 Person Assistance Scooting Scooting to Edge of Bed Maximum Assistance PT-Transfer Assessment Sit to and From Stand Sit to and from Stand Minimal Assistance,1 Person Assistance,Use of Upper Extremities Equipment Transfer Assistive Device Gait Belt,Front Wheeled Walker Orthotic/Prosthetic Devices or Brace: Yes Transfers Transfer Destination Bed Transfer Ability Level of Assist Moderate Assistance,Maximum Assistance,1 Person Assistance ,Use of Upper Extremities Comments Mobility Comments Pt in bed upon arrival from therapy and agreeable to work w/ therapy. Pt required Mod A and cues for logroll to R and Max A x1 for sidelying to sit. Max A for scooting to EOB. Pt then sit<>stand w/ FWW and Min A and cues for sequencing and hand placement. Pt then ambulate ~8ft to sink and performed hygiene, able to maintain standing balance w/ UE support on sink for ~2 min. Pt then ambulated additional ~15 ft in room w/ FWW and min A for FWW management. Pt required frequent cues for upright posture and quad activation while ambulating. Pt reported fatigue after short bout of ambulation and requested to get back in bed. Mod A and cues for sit<> sidelying and logroll to supine. Pt able to shift hips laterally in bed CGA and cues. Pt left in bed w/ all needs in reach. Gait Assessment Gait Gait Assistance Required: Minimum Assistance,1 Person Assist Distance (Feet) 23 Able to Maintain Weight Bearing Status Yes During Gait Assistive Devices Assistive Device Gait Belt,Front Wheeled Walker Orthotic/Prosthetic Devices or Brace: No Gait Deviations General Gait Pattern Antalgic,Decreased Stride Length,Decreased Feet Clearance,Flexed Trunk,Step-to Gait Factors Limiting Gait Function Factors Limiting Gait Function Decreased Activity Tolerance, Decreased Strength,Difficulty Following Directions,Limited Range of Motion,Poor Balance, Poor Safety Awareness Comments Gait Comments pls refer to mobility section for details PT-Balance Assessment Sitting Balance and Reactions Static Sitting Balance Ability Fair Dynamic Sitting Balance Ability Poor Standing Balance and Reactions Static Standing Balance Ability Fair Dynamic Standing Balance Ability Poor Device Used FWW M5 PT-IP Objective Assessments Start: 09/28/19 11:42 Freq: NEEDED Status: Active Protocol: Document 09/28/19 09:10 AB (Rec: 09/28/19 11:56 AB [id number]) Orientation Orientation/Cognition Level of Alertness Lethargic Orientation Name Language Function Ability Hard of Hearing Safety Awareness Decreased Safety Awareness Memory Description Short Term Impaired Gross Range of Motion Lower Extremity ROM Assessment Within Functional Limits Strength Lower Extremity Strength Hip 4-/5 Knee 4-/5 Muscle Tone Muscle Tone WNL Yes M6 PT-IP Treatment Start: 09/28/19 11:42 Freq: NEEDED Status: Active Protocol: Document 09/29/19 10:52 [place] (Rec: 09/29/19 13:44 KS [id number]) Physical Therapy Treatment Education Education Provided Precautions,Safety M7 PT-IP Assessment and Plan Start: 09/28/19 11:42 Freq: NEEDED Status: Active Protocol: Document 09/29/19 10:52 [place] (Rec: 09/29/19 13:44 KS [email or web address]) PT Summary Assessment and Plan Potential Rehabilitation Potential Fair Summary Impairments Pain,ROM,Strength,Balance, Coordination,Sensation,Tone, Cognition,Bed Mobility, Transfers,Gait,Activity Tolerance Progress Towards Goals Slow Progress due to Medical Issues,Slow Progress due to Activity Tolerance,Slow Progress - Other Assessment Summary Pt showed improvements w/ sit< >stand and ambulation today, but still requires Max A and cues for sup<>sit, scooting EOB, and Mod A and cues for logroll and sit<>sidelying. Pt ambulated ~23 ft total w/ FWW and Min A and cues for FWW management, upright posture, and quad activation. Pt will require SNF d/t low tolerance for activity and Mod to Max A for logroll and sup<>sit<>sup. Goals Bed Mobility Goal Standby Assistance Transfer Goal Standby Assistance,Front Wheeled Walker Gait Goal Standby Assistance,Front Wheel Walker Gait Distance 100 Other Goals up/down 4 steps L rail ascending SBA Days to Meet Goals 5 Frequency of Treatment Frequency Of Treatment Twice a Day Treatment Plan Physical Therapy Treatment Plan Bed Mobility Training,Transfer Training,Gait Training, Therapeutic Exercise,Balance Retraining,Post Op Education, Discharge Planning,Hot or Cold Pack,Neuromuscular Re-ed, Coordination Retraining,Manual Therapy Recommendations To Nursing Amount of Assist Needed 2 Person Assist Discharge Recommendations PT Discharge Recommendations Home with 01/09 Assist,Home Health,SNF Rehab Transportation Needs at Discharge Private Vehicle,Wheelchair/ Cabulance
[2019-09-29] MEDS: HYDROCODONE/ACET 5/325 TABLET 1 TAB PO ×2 (11:52→18:28)
[2019-09-29] MEDS: SODIUM CHLORIDE 0.9% FLUSH 10 ML IV ×2 (11:53→20:36)
[2019-09-29 11:59] VITALS: BP 146/68; PULSE 64; RESP 16; TEMP 36.8; O2SAT 94
--- NOTE | 2019-09-29 13:03 | OT.IP.TRT ---
Current Diagnoses Spinal stenosis, cervical region (09/27/19) Other cervical disc displacement, unspecified cervical region (09/27/19) Strain of muscle, fascia and tendon at neck level, initial encounter (09/27/19) Surgery Performed Operation Date: 09/27/19 12:15 Actual Procedures p C56 anterior cervical discectomy & fusion w/ bone graft - Jerry Rojas MD Occupational Therapy Treatment Note M2 OT-IP Current Condition Start: 09/28/19 15:54 Freq: Status: Active Protocol: Document 09/28/19 14:30 [facility] (Rec: 09/28/19 16:21 [facility] [id number]) Occupational Therapy Current Condition Current Condition Evaluation Date 09/28/19 Treatment Diagnosis Cervical stenosis, s/p c5-6 ant. cervical discectomy and fusion Diagnosis Onset Date 09/27/19 Post Operative Precautions Cervical Spine Precautions Soft Collar for Comfort,No Heavy Lifting,Log Roll M3 OT- IP Subjective and Pain Start: 09/28/19 15:54 Freq: Status: Active Protocol: Document 09/29/19 13:11 [facility] (Rec: 09/29/19 13:23 [facility] [id number]) OT- Subjective Occupational Therapy Visit Type Type Treatment Note Visit Start Time 12:40 Visit Stop Time 13:03 Total Visit Minutes 23 Occupational Therapy Visit Comments Patient Comments Pt needing to use the bathroom . Patient/Caregiver Goals Pt realizes that it would be best to go to skilled rehab first before going home. OT Pain Assessment Pain When Pain Assessed At Rest Pain Present Pain Present Pain Reported Location neck Intensity 9 Scale Used Numeric (0 - 10) M4 OT- IP ADL's Start: 09/28/19 15:54 Freq: Status: Active Protocol: Document 09/29/19 13:11 [facility] (Rec: 09/29/19 13:23 [facility] [id number]) OT TIL-Rqal-Fyhxlji Comments OT Self-Feeding Comments Pt still needing cues to sit upright and take smaller sips while drinking her water. OT ADL-Grooming Comments OT Grooming Comments Not performed. OT ADL-Dressing General Eval Lower Body Dressing Ability Maximum Assistance Comments OT Dressing Comments MAXA to get brief over her feet and while standing with FWW andn MIN/MODA pt trying to assist to pull up over her hips but needing assist for completeness. OT ADL-Toileting General Evaluation Toileting Ability Moderate Assistance Areas Needing Assistance Manage Clothing Comments OT Toileting Comments Pt heavy use of grab bar to help stand and due to ,min/ MODA for balance while needing assist to help pull up her brief. Pt able to her hygiene needs while sitting on the toilet. OT ADL-Bathing Comments OT Bathing Comments Not performed. M5 OT- IP IADL's Start: 09/28/19 15:54 Freq: Status: Active Protocol: Document 09/28/19 14:30 [facility] (Rec: 09/28/19 16:21 [facility] [id number]) OT-Instrumental Activities of Daily Living Home Safety Awareness Home Safety Comments At this time due to decreased activity tolerance and balance , increased confusion, and poor safety awareness. Pt will need to have assist for all ADl and IADl needs. Medication Management Medication Management Caregiver Administers Money Management Money Management Caregiver Provides Assistance Meal Preparation Meal Preparation Caregiver Provides Assist Client Care Manager Client Care Manager Caregiver Provides Assist M6 OT- IP Functional Cognition Start: 09/28/19 15:54 Freq: Status: Active Protocol: Document 09/29/19 13:11 [facility] (Rec: 09/29/19 13:23 [facility] [id number]) Cognitive Factors Limiting Selfcare Function Cognitive Ability Level of Alertness Alert,Confusional State Patient Orientation Name,Place,Situation Attention Span Ability Capable of Focused Attention, Unable to Sustain Attention Ability to Follow Commands Able to Follow One Step Commands with Increased Time, Able to Follow One Step Commands with Repetition Memory Description Short Term Impaired Safety Awareness Underestimates Need for Assistance Problem Solving Ability Unable to Identify Errors, Needs Assist to Identify Solutions Cognitive Comments Cognitive Assessment Comments Pt still needing step by step instructions for bed mobility, safety with FWW, and has trouble following directions and needing simple concrete commands to follow. M7 OT- IP Mobility and Balance Start: 09/28/19 15:54 Freq: Status: Active Protocol: Document 09/29/19 13:11 [facility] (Rec: 09/29/19 13:23 [facility] [id number]) OT- Bed Mobility Assessment Rolling Type of Rolling Roll to Right Level of Assistance Maximum Assistance Supine to Sit Supine to Sit Assist Maximum Assistance,Total Assistance,1 Person Assistance ,Bedrails Sit to Supine Sit to Supine Assist Moderate Assistance,1 Person Assistance,Bedrails Scooting Scooting to Edge of Bed Maximum Assistance,1 Person Assistance OT-Transfer Assessment Sit to and From Stand Sit to and from Stand Moderate Assistance,1 Person Assistance Transfers Transfer Ability Moderate Assistance,1 Person Assistance Technique Transfer Destination Bed,Toilet Devices Transfer Assistive Devices Gait Belt,Front Wheeled Walker Comments Mobility Comments Pt still needing extensive assist for bed mobility needs. Once up on her feet requires from min-MODA for balance, safety with FWW as tends to keep the FWW to far in front of her. In addition pt's safety awareness decreases when she is in a hurry, i.e trying to get into the bathroom. Pt had loss of balance when trying to turn all the way around to the bed prior to sitting down and needing MODA for balance to prevent from falling backwards. OT- Gait Assessment Comments Gait Ability Comments MODAx1 with FWW, however at times due to her impulsivity and decreased safety awareness would be best to have two person assist if walking to the bathroom or just use of BSC next to the bed. OT- Balance Assessment Sitting Balance and Reactions Static Sitting Balance Ability Good Dynamic Sitting Balance Ability Fair Standing Balance and Reactions Static Standing Balance Ability Poor Dynamic Standing Balance Ability Poor Comments Other Balance Tests/Deviations/Treatment Pt a little more balance : versus yesterday on her feet but more unsteady as pt gets in a hurry. M8 OT- IP Objective Assessments Start: 09/28/19 15:54 Freq: Status: Active Protocol: Document 09/28/19 14:30 [facility] (Rec: 09/28/19 16:21 [facility] [id number]) OT Strength Comments Strength Comments Not formally tested at least 3 -/5 throughout. Pt not able to use her BUE to help push up from sidelying. M9 OT- IP Assessment and Plan Start: 09/28/19 15:54 Freq: Status: Active Protocol: Document 09/29/19 13:11 [facility] (Rec: 09/29/19 13:23 [facility] [id number]) OT Summary Assessment and Plan Potential Rehabilitation Potential Good Analytic Complexity at Evaluation Low Summary OT Impairments Pain,Strength,Balance, Functional Cognition, Functional Mobility,Self- Feeding,Grooming,Dressing, Toileting,Bathing,Toilet Transfers,Shower Transfers, Activity Tolerance Progress Towards Goals Slow Progress due to Pain,Slow Progress due to Activity Tolerance,Slow Progress due to Cognition Assessment Summary Pt able to get to the bathroom today with MOD Ax1 but still needing MAX A for LB Dressing needs. Pt still extensive assist for bed mobility needs. Pt will benefit from skilled rehab prior to going home. Goals Grooming Goal Independent Dressing Goal Independent Toileting Goal Independent Bathing Goal Standby Assistance Toilet Transfer Goal Independent Shower Transfer Goal Independent Patient/Caregiver Education Goal Demonstrate Post-Op Precautions,Caregiver Independent Assisting Patient Days to Meet Goals 23 Frequency of Treatment Frequency Of Treatment Once a Day Treatment Plan OT Treatment Plan ADL Training,Functional Cognition Training,Functional Mobility,Patient/Family Education,Discharge Planning Other Treatment Recommendations and Next Pt to be able to do grooming Treatment Focus while standing with FWW in front of the sink with DESTINEE. Discharge Recommendations OT Discharge Recommendations SNF Rehab Home Equipment Needs Defer to SNF
--- NOTE | 2019-09-29 13:21 | PC.NURSE ---
PT A BIT SLOW TO WAKE UP THIS AM BUT PROGRESSIVELY CLEARER WITH HER MENTATION - CONTINUES WITH SHORT TERM MEMORY DIFFICULTIES. REMOVED SOFT COLLAR FOR HER COMFORT WELL MEDICATED X 1 WITH HYDROCODONE PER MD ORDER. PT ABLE TO TRANSFER WITH ASSIST OF ONE TO BSC/EDGE OF BED AND TO CHAIR - SHE DOES REMAIN IMPULSIVE AT TIMES AND NEEDS REMINDERS FOR CORRECT BODY ALIGNMENT AND BALANCE CONCERNS- APPETITE FAIR NO NAUSEA - COVID TEST PENDING SECONDARY TO PLANNED DISCHARGE TO [facility] TOMORROW- SALINE LOCKED AT TIME- INCISION TO ANTERIOR NECK CDI
[2019-09-29 13:43] LABS: COVID19 -Nasal RAPID Negative (Negative)
--- NOTE | 2019-09-29 14:40 | PT.IPTN ---
Current Diagnoses Spinal stenosis, cervical region (09/27/19) Other cervical disc displacement, unspecified cervical region (09/27/19) Strain of muscle, fascia and tendon at neck level, initial encounter (09/27/19) Surgery Performed Operation Date: 09/27/19 12:15 Actual Procedures p C56 anterior cervical discectomy & fusion w/ bone graft - Jerry Rojas MD Physical Therapy Treatment Note M2 PT-IP Current Condition Start: 09/28/19 11:42 Freq: NEEDED Status: Active Protocol: Document 09/28/19 09:10 AB (Rec: 09/28/19 11:56 AB [id number]) Physical Therapy Current Condition Current Condition Evaluation Date 09/28/19 Treatment Diagnosis s/p C5-6 ACDF; difficulty in walking Onset Date 09/27/19 Precautions Cervical Spine Precautions Soft Collar for Comfort,No Heavy Lifting,Log Roll Other Precautions falls M3 PT-IP Subjective Start: 09/28/19 11:42 Freq: NEEDED Status: Active Protocol: Document 09/29/19 14:05 [facility] (Rec: 09/29/19 15:53 KS [email or web address]) Subjective Physical Therapy Visit Type Type Treatment Note Visit Start Time 14:05 Visit Stop Time 14:40 Total Visit Minutes 35 Number of SENIOR MECHANICAL PROJECT ENGINEER Visits 2 Physical Therapy Visit Comments Patient Comments Pt agreeable to work with therapy. M4 PT-IP Mobility and Gait Start: 09/28/19 11:42 Freq: NEEDED Status: Active Protocol: Document 09/29/19 14:05 [facility] (Rec: 09/29/19 15:53 [facility] [id number]) PT-Bed Mobility Assessment Rolling Type of Rolling Log Rolling,Roll to Right Level of Assist Moderate Assistance,1 Person Assistance Supine to Sit Supine to Sit Maximum Assistance,1 Person Assistance,Bedrails Scooting Scooting to Edge of Bed Maximum Assistance PT-Transfer Assessment Sit to and From Stand Sit to and from Stand Minimal Assistance,Moderate Assistance,1 Person Assistance ,Use of Upper Extremities Equipment Transfer Assistive Device Gait Belt,Front Wheeled Walker Orthotic/Prosthetic Devices or Brace: Yes Transfers Transfer Destination Chair,Toilet Transfer Technique Pt ambulated w/ FWW Transfer Ability Level of Assist Moderate Assistance,Maximum Assistance,1 Person Assistance ,Use of Upper Extremities Comments Mobility Comments Pt in bed upon arrival from therapy w/ sister in room. Pt Mod A and cues for logroll to R and Max A for sidelying<>sit. Max A for scooting EOB. Pt able to remain balanced while sitting EOB. Min A and cues for sit<>stand from bed. Pt then ambulated ~10 ft to toilet. Upon approach to toilet, pt became weak and reqired Mod A for pivot and FWW management to toilet. Mod A for sit<>stand from toilet. Min A ~10 ft ambulation to chair and Min A for stand<>sit in chair for slow descent. Pt left in chair w/ all needs in reach w/ dietition in room. Gait Assessment Gait Gait Assistance Required: Minimum Assistance,Moderate Assistance,1 Person Assist Distance (Feet) 20 Able to Maintain Weight Bearing Status Yes During Gait Assistive Devices Assistive Device Gait Belt,Front Wheeled Walker Orthotic/Prosthetic Devices or Brace: No Gait Deviations General Gait Pattern Antalgic,Decreased Stride Length,Decreased Feet Clearance,Flexed Trunk,Step-to Gait Factors Limiting Gait Function Factors Limiting Gait Function Decreased Activity Tolerance, Decreased Strength,Difficulty Following Directions,Limited Range of Motion,Poor Balance, Poor Safety Awareness Comments Gait Comments Pt ambulated ~20 ft total w/ FWW Min to Mod A. Pt fatigued quickly, needing Mod A and cues to remain standing and for FWW management. PT-Balance Assessment Sitting Balance and Reactions Static Sitting Balance Ability Fair Dynamic Sitting Balance Ability Poor Standing Balance and Reactions Static Standing Balance Ability Fair Dynamic Standing Balance Ability Poor Device Used FWW M5 PT-IP Objective Assessments Start: 09/28/19 11:42 Freq: NEEDED Status: Active Protocol: Document 09/28/19 09:10 AB (Rec: 09/28/19 11:56 AB [id number]) Orientation Orientation/Cognition Level of Alertness Lethargic Orientation Name Language Function Ability Hard of Hearing Safety Awareness Decreased Safety Awareness Memory Description Short Term Impaired Gross Range of Motion Lower Extremity ROM Assessment Within Functional Limits Strength Lower Extremity Strength Hip 4-/5 Knee 4-/5 Muscle Tone Muscle Tone WNL Yes M6 PT-IP Treatment Start: 09/28/19 11:42 Freq: NEEDED Status: Active Protocol: Document 09/29/19 14:05 KS (Rec: 09/29/19 15:53 KS [id number]) Physical Therapy Treatment Education Education Provided Precautions,Safety M7 PT-IP Assessment and Plan Start: 09/28/19 11:42 Freq: NEEDED Status: Active Protocol: Document 09/29/19 14:05 KS (Rec: 09/29/19 15:53 KS [id number]) PT Summary Assessment and Plan Potential Rehabilitation Potential Fair Summary Impairments Pain,ROM,Strength,Balance, Coordination,Sensation,Tone, Cognition,Bed Mobility, Transfers,Gait,Activity Tolerance Progress Towards Goals Slow Progress due to Medical Issues,Slow Progress due to Activity Tolerance,Slow Progress - Other Assessment Summary Pt contonued to need Mod to Max A for bed mobility, Min to Mod A for sit<>stand, and min to Mod A for ambulation w/ FWW. Pt is weak and has low tolerance for activity and is still requiring high levels of assist. She will require SNF to improve strength and functional mobility. Goals Bed Mobility Goal Standby Assistance Transfer Goal Standby Assistance,Front Wheeled Walker Gait Goal Standby Assistance,Front Wheel Walker Gait Distance 100 Other Goals up/down 4 steps L rail ascending SBA Days to Meet Goals 5 Frequency of Treatment Frequency Of Treatment Twice a Day Treatment Plan Physical Therapy Treatment Plan Bed Mobility Training,Transfer Training,Gait Training, Therapeutic Exercise,Balance Retraining,Post Op Education, Discharge Planning,Hot or Cold Pack,Neuromuscular Re-ed, Coordination Retraining,Manual Therapy Recommendations To Nursing Amount of Assist Needed 2 Person Assist Discharge Recommendations PT Discharge Recommendations Home with 01/09 Assist,Home Health,SNF Rehab
--- NOTE | 2019-09-29 15:21 | CM.DPC ---
DCP Cont: Nataliya at [facility] has confirmed acceptance for tomorrow if patient is ready. COVID results negative. Updated July on results. Also, patient's sister and POA, Radha, was in room. She had questions about belongings and admission paperwork at [facility]. With July's permission, gave Radha her phone number. Also let sister know about days of visiting outside, but need to contact director of enterprise architecture to set this up. Radha i s requesting that she be called with a pickling grader time at [facility] if patient is discharged tomorrow. P: DCP to continue to follow. Patient can go to [facility] tomorrow if she is medically cleared. Will need to update sister, Radha, with time of pickling grader. Farrah Fu RN/Homeowner Association Manager
--- NOTE | 2019-09-29 15:40 | DIET.PN ---
Dietary Progress Note Assessment: 79y F s/p cervical fusion referred to nutrition for low POs. Pt reports difficulty c meals provided by hospital, was unable to eat beef because pieces were too big, lasagna was good texture but was too hot. Pt has friend bringing in ayala yogurts and baby food for her. Nursing reports pt was somnolent last night, BG was 473 but otherwise has been trending in low 100s. Pt could not recall what she ate or drank before the BG check which would cause her to spike so high, BG WNL since then. Planning to go to SNF for rehab. HT: 162.5cm WT: 90.7 BMI: 34.3 Nutrition Diagnosis: inadequate oral intake r/t guarding reaction s/p anterior neck surgery aeb pt reports fear eating regular texture foods, pt consuming yogurt and baby food from home, pt s/p d1 from anterior access cervical fusion. Interventions: 1. Recc Easy Chew CCD diet order for next week until pt more healed and comfortable eating regular textures. 2. Recc ONS high pro smoothie for added protein and a smooth, cool texture to supplement POs. 3. Recc pt on Easy Chew texture at rehab r/t fear of regular texture s/p anterior neck surgery. Diet Order: CCD3
[2019-09-29 15:50] VITALS: BP 115/57; PULSE 69; RESP 18; TEMP 36.9; O2SAT 95
[2019-09-29] MEDS: SUMAtriptan 25 MG TABLET 100 MG PO (16:08)
[2019-09-29] MEDS: ONDANSETRON 4 MG/2 ML INJ IV (17:54)
[2019-09-29] MEDS: SENNOSIDES 8.6 MG TABLET 17.2 MG PO (20:30)
[2019-09-29] MEDS: hydrOXYzine pamoate 25 MG CAPSULE PO (20:30)
[2019-09-29] MEDS: ROSUVASTATIN 10 MG TABLET 5 MG PO (20:30)
[2019-09-29] MEDS: GABAPENTIN 600 MG TABLET PO (20:30)
[2019-09-29] MEDS: IRBESARTAN 150 MG TABLET PO (20:32)
[2019-09-29 20:33] VITALS: BP 144/59; PULSE 72; RESP 17; TEMP 36.6; O2SAT 91
[2019-09-29] MEDS: INSULIN GLARGINE 100 UNIT/ML 3ML PEN 20 UNIT SUBCUT (20:33)
[2019-09-30] VITALS (8 sets, daily range): BP systolic 115–169; BP diastolic 53–72; PULSE 63–77; RESP 14–20; TEMP 36.6–36.9; O2SAT 91–99
[2019-09-30] MEDS: PANTOPRAZOLE 20 MG TABLET PO ×2 (09:02→20:43)
[2019-09-30] MEDS: NYSTATIN CREAM 30 GM 1 APPLIC TOP ×2 (09:02→20:44)
[2019-09-30] MEDS: CITALOPRAM 20 MG TABLET 40 MG PO (09:02)
[2019-09-30] MEDS: DOCUSATE 100 MG CAPSULE PO ×2 (09:02→20:44)
[2019-09-30] MEDS: SODIUM CHLORIDE 0.9% FLUSH 10 ML IV ×2 (09:03→20:44)
--- NOTE | 2019-09-30 09:12 | CM.DPC ---
Discharge Planning/Care Management CM Discharge Assessment Start: 09/28/19 09:15 Freq: Status: Active Protocol: Document 09/28/19 09:15 (Rec: 09/28/19 09:23 [id number]) Discharge Planning Assessment Advance Directives? Yes Advance Directives on File No History Provided By Patient,Medical Record Prior Living Arrangements Mobile home Household Members children Type of transporation used prior to Relies on Others admit Independent with ADL's Yes Is patient alert and oriented? Yes Needs Assistance With Bathing,Meal Prep,Managing Medications,Home Chores / Shopping Caregiver for Another No DME Already Rented / Owned FWW / Walker,Cane Barriers to Discharge No Comment Has supportive daughter at home. Discharge Plan Home Transportation Arrangement Daughter Additional Comment Will see how she does with P.T . and their recommendations. Whiteboard Updated in Patient Room with Yes name and ext. # of Irrigation Service Technician Review Status In Process Next Review Type Continued Stay Review 09/28/19 09:16 CM Disch. Assessment Note by Farrah Fu DCP: Case received, EMR reviewed and met with patient. Introduced self and role. Was able to obtain information from patient regarding her baseline activity level prior to surgery, and her living situation. DCP assessment completed with information currently available. Patient is a 79 year old female who admitted yesterday morning to the care of the orthopedic team. PCP: Dr. Ramires. Payer: confirmed: Medicare/[facility]. Patient came to the hospital for a surgical procedure. She had a C5-6 anterior cervical diskectomy and fusion. Patient has history of cervical stenosis. Patient also has history of falls at home secondary to balance issues. Met with patient in her room. She is alert and oriented. She was sitting up in bed, wearing cervical collar. Patient indicated that she resides with her daughter, Geno, assists her at home. Patient confirmed that she has had some falls at home, she does not have a life line, for her daughter is there. She uses a walker, as well as a cane at baseline. She does not drive. Her daughter helps her with showers, med set up, and meals. P: DCP to continue to follow. Will be available for any resources. Patient should be able to go home when stable, and when cleared by orthopedic as well as therapy team. Farrah Fu RN/Milking Worker Initialized on 09/28/19 09:16 - END OF NOTE Pre-Anesthesia Assessment Start: 09/19/19 12:57 Freq: Status: Complete Protocol: Document 09/19/19 12:57 CAB (Rec: 09/19/19 13:48 CAB [id number]) Pre-Anesthesia Assessment PAC Comment 09/19/19-Pt states she has a current UTI, awaiting to hear if they will start abx, reports Surgeon is aware. Preferred Name Louise Patient Information Reviewed Via Phone Assessment Assessment Completed With Patient Comment Labs/EKG done per pt, surgeon has, not here-COVID screen @ 09/24/19 Primary Care Provider [facility] Received Yes Seen Specialist in Last 12 Months Yes Specialist Seen Hoop Cutter,Orthopedist, Urologist,Other Comment PCP pre-op clearance 09/02/19 scanned to record Primary Language Mongolian Store Coordinator Required No Height 162.56 cm Weight 90.718 kg Body Mass Index (BMI) 34.3 Hearing Ability Normal Visual Assist Glasses Dentition Type Teeth, Natural Present,Teeth, Missing Barriers to Learning None Other Aids No Hx Anesthesia Reactions No Hx Family Anesthesia Reaction No Hx Malignant Hyperthermia No Hx Blood Transfusions No Anesthesia Review Requested No alcohol intake former Smoking Status Former smoker how long ago did patient quit smoking Quit 1992 Substance Use Type does not use Pain Present Pain Reported Musculoskeletal Symptoms Limited Range of Motion,Muscle Spasms,Neck Pain History of Falling (Recent or History of Yes ) Patient is completely paralyzed or No completely immobile Prosthesis or Orthotic Device Cane,Front Wheel Walker Mental Status Oriented to own ability Is patient on oxygen? No Does patient have DAY/SOB No Hx Sleep Apnea No Currently Taking a Beta Mallory No Can You Climb a Flight of Stairs Without No SOB Hx Chest Pain No Hx SOB No Hx Syncope or Dizziness Yes: Occasional dizziness when tired, positional changes Anti-Coagulant Therapy No Has a Hoop Cutter Yes: Dr. Hdez-last visit Cardiac Testing Carotid US 09/08/19 Hx Pacemaker/ICD No Pacemaker Rep Required? No Comment Cardiac records scanned to record Diet Type At Home Regular dysphagia No: Rice gets caught in my lower esophagus Gastrointestinal Symptoms Nausea,Reflux Bladder Pattern Incontinent,Urgency Urinary Catheter Present No Hx Urinary Self Catheterization No Diabetes Yes: Pt checks randomly through the week Patient No Lactating No Hx Drug Resistant Organism No Presence of External or Internal Medical Yes: Left knee prothesis, Devices bladder, hernia mesh Have you had any close contact with No someone diagnosed with COVID-19? Marital Status / Lives With children Prior Living Arrangements Mobile home Number of Floors (Floors) One Floor Support System Child/Children Does the Patient Have Assistance After Yes Surgery Patient Discharge Plan Description Return Home Comment Pt advised overnight length of stay per surgeon Feels Safe in Current Environment Yes Been Physically Hurt or Threatened By a No Person in Current Environment Do you have thoughts of harming yourself None or others? Are you currently considering suicide? No Do you have a plan to hurt yourself or No Plan others? Do You Have Any Spiritual Beliefs That No May Affect Your HC Choices? Do You Have Any Cultural Practices That No May Affect Your HC Choices? Comment Mosque Who Can We Speak to About Patient's Care Family, friends Identifying Code for Release of Patient Declines to issue Information Health Care Proxy/Next of Kin Radha (sister) Health Care Proxy or [phone] Emergency Contact Name Geno (daughter) Emergency Contact or [phone] Advance Directives? Yes Advance Directives on File No Requested Patient Bring Advanced Yes Directives DOS Power of Internal Control Consultant Yes Power of Internal Control Consultant Name Radha (sister) Power of Internal Control Consultant or [phone] PAC Instructions Diabetes instructions,Durable medical equipment,Medications to take/avoid,Nasal antibiotic ,No ETOH/petroleum product on skin DOS,NPO,Post-op transportation,Pre-surgical wash,Sturdy shoes/comfortable clothes,Do not bring valuables and remove jewelry
--- NOTE | 2019-09-30 09:13 | CM.DPC ---
Addendum entered by Karena Christiansen LPN 09/30/19 12:56: Spoke with Dr. Rojas later in the day re POC. He confirms plan for d/c to [facility]. Initially he said he would send pt today but after he spoke with RN Ania for bedside nursing update he made decision to keep her until tomorrow. Nataliya/[facility] is updated. Will check in tomorrow and follow accordingly. Original Note: DCP: continued: case received, EMR reviewed and met with pt. Introduced self and role. Pt confirms that she is planning for rehab/recovery stay at [facility] when she is ready to leave hospital. She notes that she is a bit discouraged. I can't even eat right now. OT and PT notes support snf need. PASRR: completed by colleague 09/27. It is unclear if pt will d/c today. Will be following. COVID-19 test: negative: 09/28: 1200.
--- NOTE | 2019-09-30 10:26 | PT.IPTN ---
Current Diagnoses Spinal stenosis, cervical region (09/27/19) Other cervical disc displacement, unspecified cervical region (09/27/19) Strain of muscle, fascia and tendon at neck level, initial encounter (09/27/19) Surgery Performed Operation Date: 09/27/19 12:15 Actual Procedures p C56 anterior cervical discectomy & fusion w/ bone graft - Jerry Rojas MD Physical Therapy Treatment Note M2 PT-IP Current Condition Start: 09/28/19 11:42 Freq: NEEDED Status: Active Protocol: Document 09/28/19 09:10 AB (Rec: 09/28/19 11:56 AB [id number]) Physical Therapy Current Condition Current Condition Evaluation Date 09/28/19 Treatment Diagnosis s/p C5-6 ACDF; difficulty in walking Onset Date 09/27/19 Precautions Cervical Spine Precautions Soft Collar for Comfort,No Heavy Lifting,Log Roll Other Precautions falls M3 PT-IP Subjective Start: 09/28/19 11:42 Freq: NEEDED Status: Active Protocol: Document 09/30/19 09:56 KS (Rec: 09/30/19 11:47 KS [id number]) Subjective Physical Therapy Visit Type Type Treatment Note Visit Start Time 09:56 Visit Stop Time 10:26 Total Visit Minutes 30 Number of CARD SERVICES SPECIALIST Visits 3 Physical Therapy Visit Comments Patient Comments Pt very drowsy. M4 PT-IP Mobility and Gait Start: 09/28/19 11:42 Freq: NEEDED Status: Active Protocol: Document 09/30/19 09:56 KS (Rec: 09/30/19 11:47 KS [id number]) PT-Bed Mobility Assessment Rolling Type of Rolling Log Rolling,Roll to Right Level of Assist Moderate Assistance,1 Person Assistance Sit to Supine Sit to Supine Moderate Assistance,2 Person Assistance Scooting Scooting to Edge of Bed Maximum Assistance PT-Transfer Assessment Sit to and From Stand Sit to and from Stand Moderate Assistance,Maximum Assistance,1 Person Assistance ,Use of Upper Extremities Equipment Transfer Assistive Device Gait Belt,Front Wheeled Walker Orthotic/Prosthetic Devices or Brace: Yes Transfers Transfer Destination Bed,Bedside Commode Transfer Technique Pt ambulated w/ FWW Transfer Ability Level of Assist Moderate Assistance,Maximum Assistance,1 Person Assistance ,Use of Upper Extremities Comments Mobility Comments Pt was in chair upon arrival from therapy and reported she needed to use bathroom. Pt Mod A sitting upright and MAx A for scooting to EOC. Attempted sit<>stand from chair w/ FWW but unable w/ Max A x1. BSC brought to pt rather than ambulating to bathroom. On second attempt, pt was able to sit<>stand w/ Max A and FWW, but began voiding before fully transferred to BSC. Pt completed stand step pivot transfer to BSC Max A and max verbal and tactile cues for steps, FWW management, and upright posture. Nursing arrived to assist pt back to bed. Pt Max Ax1 for sit<>stand , pericare performed by MASTER LAY OUT SPECIALIST. Pt then completed stand step pivot transfer to bed Mod to Max x2. Pt required frequent verbal and tactile cues to advance FWW and step backwards towards bed. During last small steps back to bed, this CARD SERVICES SPECIALIST had to help pt lift legs to step backwards. Upon sitting, RN entered and explained pt had been given incorrect medicine which explains her decline this AM. Mod A x2 for sit<>sup/logroll back into bed. Pt left w/ MASTER LAY OUT SPECIALIST. Gait Assessment Gait Gait Assistance Required: Moderate Assistance,Maximum Assistance,1 Person Assist,2 Person Assist Distance (Feet) 5 Able to Maintain Weight Bearing Status Yes During Gait Assistive Devices Assistive Device Gait Belt,Front Wheeled Walker Gait Deviations General Gait Pattern Antalgic,Decreased Stride Length,Decreased Feet Clearance,Flexed Trunk,Step-to Gait Factors Limiting Gait Function Factors Limiting Gait Function Decreased Activity Tolerance, Decreased Strength,Difficulty Following Directions,Limited Range of Motion,Poor Balance, Poor Safety Awareness Comments Gait Comments Please refer to mobility section for details. Pt only able to tolerate 2x stand step pivot transfers w/ Max A max cues. PT-Balance Assessment Sitting Balance and Reactions Static Sitting Balance Ability Fair Dynamic Sitting Balance Ability Poor Standing Balance and Reactions Static Standing Balance Ability Fair Dynamic Standing Balance Ability Poor Device Used FWW M5 PT-IP Objective Assessments Start: 09/28/19 11:42 Freq: NEEDED Status: Active Protocol: Document 09/28/19 09:10 AB (Rec: 09/28/19 11:56 AB [id number]) Orientation Orientation/Cognition Level of Alertness Lethargic Orientation Name Language Function Ability Hard of Hearing Safety Awareness Decreased Safety Awareness Memory Description Short Term Impaired Gross Range of Motion Lower Extremity ROM Assessment Within Functional Limits Strength Lower Extremity Strength Hip 4-/5 Knee 4-/5 Muscle Tone Muscle Tone WNL Yes M6 PT-IP Treatment Start: 09/28/19 11:42 Freq: NEEDED Status: Active Protocol: Document 09/30/19 09:56 KS (Rec: 09/30/19 11:47 KS [id number]) Physical Therapy Treatment Education Education Provided Precautions,Safety M7 PT-IP Assessment and Plan Start: 09/28/19 11:42 Freq: NEEDED Status: Active Protocol: Document 09/30/19 09:56 KS (Rec: 09/30/19 11:47 KS [id number]) PT Summary Assessment and Plan Potential Rehabilitation Potential Fair Summary Impairments Pain,ROM,Strength,Balance, Coordination,Sensation,Tone, Cognition,Bed Mobility, Transfers,Gait,Activity Tolerance Progress Towards Goals Slow Progress due to Medical Issues,Slow Progress due to Activity Tolerance,Slow Progress - Other Assessment Summary Pt was Max A x1 for sit<>stand today and Mod to Max x2 for stand step pivot transfers. Pt required max verbal and tactile cues throughout treatment today, and also required assistance with lifting BLE to step backwards towards bed. Mod A x2 for bed mobility. Pts decline probably credited to issue w/ medication, but pt will still require SNF to improve functional mobility as she is still needing significant assist when medication is correct. Goals Bed Mobility Goal Standby Assistance Transfer Goal Standby Assistance,Front Wheeled Walker Gait Goal Standby Assistance,Front Wheel Walker Gait Distance 100 Other Goals up/down 4 steps L rail ascending SBA Days to Meet Goals 5 Frequency of Treatment Frequency Of Treatment Twice a Day Treatment Plan Physical Therapy Treatment Plan Bed Mobility Training,Transfer Training,Gait Training, Therapeutic Exercise,Balance Retraining,Post Op Education, Discharge Planning,Hot or Cold Pack,Neuromuscular Re-ed, Coordination Retraining,Manual Therapy Recommendations To Nursing Amount of Assist Needed 2 Person Assist Discharge Recommendations PT Discharge Recommendations Home with 01/09 Assist,Home Health,SNF Rehab Transportation Needs at Discharge Private Vehicle,Wheelchair/ Cabulance
--- NOTE | 2019-09-30 11:47 | PM.PNPO.1 ---
Subjective Subjective Date Patient Seen: 09/30/19 Time Patient Seen: 11:47 Interval history: A saw her earlier today and she was doing better just waking up. However as the days progressed she has become more confused. She had some hydroxyzine which seems to have over sedated her. She is requiring two assists this morning and still did not get out of bed. Exam Vital Signs (past 8 hours): - 09/30/19 05:41 09/30/19 08:03 Temperature 98.5 F 98.0 F Pulse Rate 77 76 Respiratory Rate 18 18 Blood Pressure 115/58 L 124/63 Pulse Oximetry 96 93 Oxygen Delivery Method Nasal Cannula Oxygen Flow Rate 2 Const Orientation: confused Back/Spine/Pelvis Other: CDI. 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 However with the new medication, she has been confused and we stop the hydroxyzine and she is going to stay here, hopefully discharge tomorrow.
--- NOTE | 2019-09-30 12:26 | OT.IP.TRT ---
Current Diagnoses Spinal stenosis, cervical region (09/27/19) Other cervical disc displacement, unspecified cervical region (09/27/19) Strain of muscle, fascia and tendon at neck level, initial encounter (09/27/19) Surgery Performed Operation Date: 09/27/19 12:15 Actual Procedures p C56 anterior cervical discectomy & fusion w/ bone graft - Jerry Rojas MD Occupational Therapy Treatment Note M2 OT-IP Current Condition Start: 09/28/19 15:54 Freq: Status: Active Protocol: Document 09/28/19 14:30 [facility] (Rec: 09/28/19 16:21 [facility] [id number]) Occupational Therapy Current Condition Current Condition Evaluation Date 09/28/19 Treatment Diagnosis Cervical stenosis, s/p c5-6 ant. cervical discectomy and fusion Diagnosis Onset Date 09/27/19 Post Operative Precautions Cervical Spine Precautions Soft Collar for Comfort,No Heavy Lifting,Log Roll M3 OT- IP Subjective and Pain Start: 09/28/19 15:54 Freq: Status: Active Protocol: Document 09/30/19 12:14 [facility] (Rec: 09/30/19 12:26 [facility] [id number]) OT- Subjective Occupational Therapy Visit Type Type Treatment Note Visit Start Time 11:00 Visit Stop Time 11:16 Total Visit Minutes 16 Occupational Therapy Visit Comments Patient Comments Pt a bit confused and tired and not wanting to get out of bed at this time. Patient/Caregiver Goals Pt realizes that it would be best to go to skilled rehab first before going home. OT Pain Assessment Pain When Pain Assessed At Rest Pain Present Pain Present Pain Reported M5 OT- IP IADL's Start: 09/28/19 15:54 Freq: Status: Active Protocol: Document 09/28/19 14:30 [facility] (Rec: 09/28/19 16:21 [facility] [id number]) OT-Instrumental Activities of Daily Living Home Safety Awareness Home Safety Comments At this time due to decreased activity tolerance and balance , increased confusion, and poor safety awareness. Pt will need to have assist for all ADl and IADl needs. Medication Management Medication Management Caregiver Administers Money Management Money Management Caregiver Provides Assistance Meal Preparation Meal Preparation Caregiver Provides Assist Installation Coordinator Installation Coordinator Caregiver Provides Assist M6 OT- IP Functional Cognition Start: 09/28/19 15:54 Freq: Status: Active Protocol: Document 09/30/19 12:14 [facility] (Rec: 09/30/19 12:26 [facility] [id number]) Cognitive Factors Limiting Selfcare Function Cognitive Ability Level of Alertness Alert,Confusional State Patient Orientation Name Attention Span Ability Capable of Focused Attention, Unable to Sustain Attention Ability to Follow Commands Able to Follow One Step Commands with Increased Time, Able to Follow One Step Commands with Repetition Memory Description Short Term Impaired,Working Impaired Cognitive Comments Cognitive Assessment Comments Pt more confused today and having trouble to use her cell phone and needing assist to use her phone. Pt was given Hydroxzine last night which seems to have increased her confusion, nursing aware. Pt now on 2L of O2 and at 95%. Re-empahsized to pt to be sure to sit upright for meals. M8 OT- IP Objective Assessments Start: 09/28/19 15:54 Freq: Status: Active Protocol: Document 09/28/19 14:30 [facility] (Rec: 09/28/19 16:21 [facility] [id number]) OT Strength Comments Strength Comments Not formally tested at least 3 -/5 throughout. Pt not able to use her BUE to help push up from sidelying. M9 OT- IP Assessment and Plan Start: 09/28/19 15:54 Freq: Status: Active Protocol: Document 09/30/19 12:14 [facility] (Rec: 09/30/19 12:26 [facility] [id number]) OT Summary Assessment and Plan Potential Rehabilitation Potential Good Analytic Complexity at Evaluation Low Summary OT Impairments Pain,Strength,Balance, Functional Cognition, Functional Mobility,Self- Feeding,Grooming,Dressing, Toileting,Bathing,Toilet Transfers,Shower Transfers, Activity Tolerance Progress Towards Goals Slow Progress due to Pain,Slow Progress due to Medical Issues,Slow Progress due to Activity Tolerance,Slow Progress due to Cognition Assessment Summary Pt a bit more confused today and having trouble to use her cell phone and difficulty to keep her eyes open today. Per chart pt was given Hydroxzine which appears to be the cause of her confusion. Still suggest pt to go to skilled rehab when medically stable. Goals Grooming Goal Independent Dressing Goal Independent Toileting Goal Independent Bathing Goal Standby Assistance Toilet Transfer Goal Independent Shower Transfer Goal Independent Patient/Caregiver Education Goal Demonstrate Post-Op Precautions,Caregiver Independent Assisting Patient Days to Meet Goals 16 Frequency of Treatment Frequency Of Treatment Once a Day Treatment Plan OT Treatment Plan ADL Training,Functional Cognition Training,Functional Mobility,Patient/Family Education,Discharge Planning Other Treatment Recommendations and Next Pt to be able to do grooming Treatment Focus while standing with FWW in front of the sink with DESTINEE. Discharge Recommendations OT Discharge Recommendations SNF Rehab Home Equipment Needs Defer to SNF
--- NOTE | 2019-09-30 13:14 | PC.NURSE ---
Addendum entered by Ania Morin R.N. 09/30/19 14:54: Patient is much more awake now and is going to get up with physical therapy when daughter gets here to visit. She is resting in bed now and comfortable. Original Note: Patient had a hard time getting out of bed this morning. She was a two person max assist getting into bed and out of bed, she is not following commands properly from being so groggy. Now at 1315, she is more awake and with it. She has eaten decent at breakfast and lunch. Dressing to anterior neck is cdi with soft collar in place. Patient was given vistaril last night and this has caused her some hallucinations and double vision, plus being overly groggy. She has sensitivities to this medication. aware of this. She has cleared up mentation moore since this am, she will be going to [facility] tomorrow.
--- NOTE | 2019-09-30 15:18 | PT-IP ANOTE ---
Pt refused x2 this PM. Attempted to see pt and she reported fatigue, revisited pt later and her daughter was visiting. Pt requested to rest and visit w/ her daughter and agreed to get out of bed w/ nursing for dinner.
[2019-09-30] MEDS: HYDROCODONE/ACET 5/325 TABLET 1 TAB PO (15:37)
[2019-09-30] MEDS: SENNOSIDES 8.6 MG TABLET 17.2 MG PO (20:43)
[2019-09-30] MEDS: ROSUVASTATIN 10 MG TABLET 5 MG PO (20:43)
[2019-09-30] MEDS: GABAPENTIN 600 MG TABLET PO (20:43)
[2019-09-30] MEDS: IRBESARTAN 150 MG TABLET PO (20:44)
[2019-09-30] MEDS: INSULIN GLARGINE 100 UNIT/ML 3ML PEN 20 UNIT SUBCUT (20:45)
[2019-10-01] VITALS: BP 120/45; PULSE 67; RESP 18; TEMP 36.8; O2SAT 97
[2019-10-01 04:39] VITALS: BP 113/46; PULSE 65; RESP 18; TEMP 36.1; O2SAT 93
[2019-10-01 08:00] VITALS: BP 130/69; PULSE 63; RESP 18; TEMP 36.4; O2SAT 93
[2019-10-01] MEDS: DOCUSATE 100 MG CAPSULE PO (08:13)
[2019-10-01] MEDS: PANTOPRAZOLE 20 MG TABLET PO (08:13)
[2019-10-01] MEDS: CITALOPRAM 20 MG TABLET 40 MG PO (08:13)
[2019-10-01] MEDS: SODIUM CHLORIDE 0.9% FLUSH 10 ML IV (08:15)
--- NOTE | 2019-10-01 08:29 | PC.NURSE ---
Addendum entered by Ania Morin R.N. 10/01/19 14:41: Patient discharged to [facility]. IV taken out by adrienne Valle. Paperwork given to tractor trailer driver to SNF and report called around 1230. Addendum entered by Ania Morin R.N. 10/01/19 12:24: Patient is not moving well with physical therapy or staff. She is going to go to [facility] at 1430. Original Note: Patient is A&Ox3 this morning, her speech is clear and she is awake. She denies cervical neck pain and has her soft collar in place. She did express once that her bladder hurt. She is not having any burning upon urination and is mostly incontinent. She has a bladder stimulator to her r.upper buttocks that helps with incontinence but this has been turned off prior to surgery. Dressing to neck is cdi, denies any numbness or tingling in her bilateral arms. CMS wnl and pulses x2. Patient is getting her medications crushed in apple sauce and this is going well for her. She has not had any coughing or choking with meals.
--- NOTE | 2019-10-01 09:30 | P.PN_ITS ---
Subjective Subjective Date Patient Seen: 10/01/19 Time Patient Seen: 09:30 Interval history: Still just feeling generalized weakness. No more confusion. Neck pain feeling much better. She feels discomfort in her bladder. Exam Vital Signs (past 8 hours): - 10/01/19 04:39 Temperature 97.0 F L Pulse Rate 65 Respiratory Rate 18 Blood Pressure 113/46 L Pulse Oximetry 93 Oxygen Delivery Method Nasal Cannula Oxygen Flow Rate 2 Const Orientation: alert and oriented x3 Back/Spine/Pelvis Other: CDI. 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 She is back to her normal mental status. Plan to send out to alf. I will check a UA before sending her out to rehab due to her bladder discomfort but I think this is unlikely because she never had a catheter for her surgery.
--- NOTE | 2019-10-01 09:33 | P.DS_ITS ---
History of Present Illness History of Present Illness Date Patient Seen: 10/01/19 Time Patient Seen: 09:36 Chief complaint: Cervical fusion Narrative: 79-year-old female with left arm pain and progressive loss of fine motor skills. She has been falling over the past year. She has been through therapy. 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 Discharge Providers Provider Date of admission: 09/27/19 10:39 Discharge Date: 10/01/19 Primary care physician: Brian Ramires Consults: 09/27/19 14:34 Consult to Physical Therapy Evaluate & Treat Comment: Physician Instructions: Evaluate and Treat 09/28/19 06:55 Consult to Hospitalist Service Stat Comment: Consulting Provider: Hans Kilgore Reason for consultation: hyperglycemia, AMS Has provider been notified: Yes 09/28/19 09:32 Consult to Occupational Therapy Evaluate & Treat Comment: Physician Instructions: Evaluate and treat 09/28/19 23:29 Consult to Dietitian, Adult Routine Comment: Reason For Exam: at risk Discharge provider: Jerry Rojas MD Summary Hospital Course Discharge Diagnosis: Cervical stenosis with myelopathy Hospital Course: She is brought to the operating room on 09/27/2019 where she underwent an uneventful C5-6 ACDF. Postoperatively she was requiring 2 person assist the 1st day after surgery just to do any mobilization. Her sister reported that she seemed slower than her baseline mental status level. The next day she was doing better and only requiring 1 person assist but having some increased neck pain. She was given some muscle relaxants which caused confusion and hallucinations his arm which gradually resolved over the next day. CT scan of the cervical spine was checked. There was no postoperative hematoma report deformity at the operative level, still some generalized osteophytes throughout the spine. By the date of discharge, she was sluggish and requiring 1-2 person assist for any mobility. Her strength in her left arm had greatly improved since surgery and today she was no longer having her upper arm pain. Her neck pain was much better by the day of discharge but she was having some bladder discomfort and a urinalysis was checked. Status at Discharge Cognitive/behavioral status at discharge: oriented Functional status at discharge: uses cane/walker Overall status at discharge: patient is not back to baseline Exam Vital Signs (past 8 hours): - 10/01/19 04:39 Temperature 97.0 F L Pulse Rate 65 Respiratory Rate 18 Blood Pressure 113/46 L Pulse Oximetry 93 Oxygen Delivery Method Nasal Cannula Oxygen Flow Rate 2 Const Orientation: alert and oriented x3 Back/Spine/Pelvis Other: CDI. 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 Plan of Treatment: Discharge to senior care for further care and mobilization. Discharge Plan Discharge Plan Patient Disposition: SNF Transfer to: [facility] Under care of provider: Facility provider Consult as needed: Dental, Hearing, Mental health, Podiatry and Vision Discharge comment: Follow-up 1.5 weeks Discharge orders & Medications Prescriptions: New hydrocodone-acetaminophen 5-325 mg Tablet 1 tab PO Q4HR PRN (Reason: Pain, Moderate (4-6)) Qty: 15 RF: 0 Continued methocarbamol 500 mg Tablet 500 mg PO BEDTIME PRN (Reason: Sleep, muscle spasms) RF: 0 gabapentin 600 mg Tablet 600 mg PO BEDTIME RF: 0 citalopram 40 mg Tablet 40 mg PO DAILY RF: 0 sumatriptan succinate 100 mg Tablet 100 mg PO Q2-4H PRN (Reason: Migraine Headache) RF: 0 ondansetron 8 mg Tablet,Disintegrating 8 mg PO Q8H PRN (Reason: Nausea) RF: 0 nystatin 100,000 unit/gram Cream 1 applic TOPICAL QD-BID PRN (Reason: Rash under abdominal fold) RF: 0 omeprazole 20 mg Capsule,Delayed Release(Dr/Ec) 20 mg PO BID RF: 0 irbesartan 150 mg Tablet 150 mg PO BEDTIME RF: 0 rosuvastatin 5 mg Tablet 5 mg PO BEDTIME RF: 0 potassium gluconate 595 mg (99 mg) Tablet 595 mg PO DAILY RF: 0 Basaglar KwikPen U-100 Insulin 100 unit/mL (3 mL) Insulin Pen 20 unit SUBCUT BEDTIME RF: 0 Discontinued hydrocodone-acetaminophen 5-325 mg Tablet 1 tab PO Q4H PRN (Reason: Pain) RF: 0 Follow up/Referrals: Brian Ramires [Primary Care Provider] - Discharge Health Status Multidrug resistant organism: No MDRO Diet/Activity/Treatments Diet: Carb-consistent/Diabetic Activity: 10 lb maximum lifting. Soft collar for comfort. Skin/Wound/Dressing Care Report to your healthcare provider any signs of infection, such as:: chills, fever, night sweats, increased pain, unusual drainage and unusual redness Dressing: May shower up to armpits until Thursday10/02/2019. May then take down dressing and fully shower and replace with a clean dressing afterwards. Visit Report/Discharge Packet Instructions: DI for Prescription Opioid Use, DI for Anterior Cervical Discectomy and Fusion Stand Alone Forms: Surgery Discharge Discharge Data Primary Care Provider: Brian Ramires
[2019-10-01 10:17] LABS: Bacteria Urine None Seen; RBC Urine None Seen (0-5/HPF); WBC Urine None Seen (0-5/HPF)
[2019-10-01 10:21] LABS: Appearance Urine UA CLEAR; Bilirubin Urine UA NEGATIVE (NEGATIVE); Color Urine UA YELLOW; Glucose Urine UA NEGATIVE (Negative); Ketones Urine UA NEGATIVE (NEGATIVE); Leukocyte Esterase Urine UA NEGATIVE (NEGATIVE); Nitrite Urine UA NEGATIVE (Negative); Occult Blood Urine UA TRACE-LYSED (Negative); Protein Urine UA NEGATIVE (Negative); Specific Gravity Urine UA <=1.005 (1.000-1.035); Urobilinogen Urine UA 0.2 E.U./dL (0.2)
[2019-10-01 10:23] LABS: Culture Indicated Urine Cult Not Indicated; Urine Comments Microscopic Normal
--- NOTE | 2019-10-01 11:44 | CM.DPC ---
Addendum entered by Karena Christiansen LPN 10/01/19 12:20: VM is left for Jo/ re the change of snf setting and need to release the referral. Original Note: DCP: continued: Spoke with Dr. Rojas this morning. He was here to finalize the d/c to snf orders. He noted that pt's POA sister Radha did talk with him last evening and wishes her sister to go to [facility], not [facility]. Met then with pt and her sister and both confirmed same. Radha noted that she only had time to research snf settings online yesterday and wished now to change the snf setting. She understood that d/c is today but stated that [facility] and both indicated that acceptance was likely. Have spoken now with the [facility] team and faxed paperwork and including the d/c summary, snf orders, PASRR. [facility] will pick pt up at 1430. Pt, her sister and care team members are updated. Pt and Radha state they are comfortable with the d/c today and are pleased that pt can go to the [facility]. Dr. Rojas did check for a UTI this morning. Confirmed now that no oral antibiotic will be needed.
--- NOTE | 2019-10-01 12:10 | PT.IPTN ---
Current Diagnoses Spinal stenosis, cervical region (09/27/19) Other cervical disc displacement, unspecified cervical region (09/27/19) Strain of muscle, fascia and tendon at neck level, initial encounter (09/27/19) Surgery Performed Operation Date: 09/27/19 12:15 Actual Procedures p C56 anterior cervical discectomy & fusion w/ bone graft - Jerry Rojas MD Physical Therapy Treatment Note M2 PT-IP Current Condition Start: 09/28/19 11:42 Freq: NEEDED Status: Active Protocol: Document 09/28/19 09:10 AB (Rec: 09/28/19 11:56 AB [id number]) Physical Therapy Current Condition Current Condition Evaluation Date 09/28/19 Treatment Diagnosis s/p C5-6 ACDF; difficulty in walking Onset Date 09/27/19 Precautions Cervical Spine Precautions Soft Collar for Comfort,No Heavy Lifting,Log Roll Other Precautions falls M3 PT-IP Subjective Start: 09/28/19 11:42 Freq: NEEDED Status: Active Protocol: Document 10/01/19 11:37 KS (Rec: 10/01/19 12:22 KS [id number]) Subjective Physical Therapy Visit Type Type Treatment Note Visit Start Time 11:37 Visit Stop Time 12:10 Total Visit Minutes 24 Notes Split treatment 11:37-11:50, 11:59-12:10 Number of STRING CUTTER Visits 4 Physical Therapy Visit Comments Patient Comments Pt requesting to use BSC. M4 PT-IP Mobility and Gait Start: 09/28/19 11:42 Freq: NEEDED Status: Active Protocol: Document 10/01/19 11:37 KS (Rec: 10/01/19 12:22 KS [id number]) PT-Bed Mobility Assessment Rolling Type of Rolling Log Rolling,Roll to Right Level of Assist Moderate Assistance,2 Person Assistance Supine to Sit Supine to Sit Moderate Assistance,2 Person Assistance Scooting Scooting to Edge of Bed Maximum Assistance PT-Transfer Assessment Sit to and From Stand Sit to and from Stand Moderate Assistance,Maximum Assistance,1 Person Assistance ,Use of Upper Extremities Equipment Transfer Assistive Device Gait Belt,Front Wheeled Walker Orthotic/Prosthetic Devices or Brace: Yes Transfers Transfer Destination Chair,Bedside Commode Transfer Technique Stand Step Pivot Transfer Ability Level of Assist Moderate Assistance,Maximum Assistance,1 Person Assistance ,2 Person Assistance,Use of Upper Extremities Comments Mobility Comments Pt in bed upon arrival from therapy and 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 Pt Mod A x2 max cues for logroll to R and Mod A x2 for sidelying<>sit. Max x1 for scooting to EOB. Mod to Max x1 for sit<>stand w / FWW. Pt requires max cues w/ all mobilty. Upon standing, pt has very flexed posture and needs constant cues to stand upright. Pt compelted stand step pivot transfer to [facility] w/ Mod to Max x2 for cues, FWW management, and LE guidance. Mod A x1 for stand<>sit on commode. Pt left in room w/ all needs in reach. Returned to pts room w/ ADMINISTRATIVE STAFF SUPERVISOR for transfer to chair. Pt Mod A x1 for sit<>stand from [facility] w/ max cues for upright posture. Pt performed stand step pivot transfer to chair Mod to Max x1, still reqiring max cues for LE guidance, upright posture, and FWW management. Mod A for stand<>sit in chair and Max A x2 for scooting back in chair. Pt left w/ 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 Gait Assessment Gait Gait Assistance Required: Moderate Assistance,Maximum Assistance,1 Person Assist,2 Person Assist Distance (Feet) 4 Able to Maintain Weight Bearing Status Yes During Gait Assistive Devices Assistive Device Gait Belt,Front Wheeled Walker Gait Deviations General Gait Pattern Antalgic,Decreased Stride Length,Decreased Feet Clearance,Flexed Trunk,Step-to Gait Factors Limiting Gait Function Factors Limiting Gait Function Decreased Activity Tolerance, Decreased Strength,Difficulty Following Directions,Limited Range of Motion,Poor Balance, Poor Safety Awareness Comments Gait Comments Please refer to mobility section for details. Pt only able to tolerate 2x stand step pivot transfers w/ Mod A to Max A x2 max cues. PT-Balance Assessment Sitting Balance and Reactions Static Sitting Balance Ability Fair Dynamic Sitting Balance Ability Poor Standing Balance and Reactions Static Standing Balance Ability Fair Dynamic Standing Balance Ability Poor Device Used FWW M5 PT-IP Objective Assessments Start: 09/28/19 11:42 Freq: NEEDED Status: Active Protocol: Document 09/28/19 09:10 AB (Rec: 09/28/19 11:56 AB [id number]) Orientation Orientation/Cognition Level of Alertness Lethargic Orientation Name Language Function Ability Hard of Hearing Safety Awareness Decreased Safety Awareness Memory Description Short Term Impaired Gross Range of Motion Lower Extremity ROM Assessment Within Functional Limits Strength Lower Extremity Strength Hip 4-/5 Knee 4-/5 Muscle Tone Muscle Tone WNL Yes M6 PT-IP Treatment Start: 09/28/19 11:42 Freq: NEEDED Status: Active Protocol: Document 10/01/19 11:37 KS (Rec: 10/01/19 12:22 KS [id number]) Physical Therapy Treatment Education Education Provided Precautions,Safety M7 PT-IP Assessment and Plan Start: 09/28/19 11:42 Freq: NEEDED Status: Active Protocol: Document 10/01/19 11:37 KS (Rec: 10/01/19 12:22 KS [id number]) PT Summary Assessment and Plan Potential Rehabilitation Potential Fair Summary Impairments Pain,ROM,Strength,Balance, Coordination,Sensation,Tone, Cognition,Bed Mobility, Transfers,Gait,Activity Tolerance Progress Towards Goals Slow Progress due to Medical Issues,Slow Progress due to Activity Tolerance,Slow Progress - Other Assessment Summary Pt continues to require Mod A to Max A x2 for all mobility and transfers, Mod to Max x1 for sit<>stand. Pt needs constant cues for upright posture, LE guidance, and FWW management. Pt only able to tolerate 2 stand step pivot transfers. She will require Snf to improve functional mobility, strength, and safety awareness. Goals Bed Mobility Goal Standby Assistance Transfer Goal Standby Assistance,Front Wheeled Walker Gait Goal Standby Assistance,Front Wheel Walker Gait Distance 100 Other Goals up/down 4 steps L rail ascending SBA Days to Meet Goals 5 Frequency of Treatment Frequency Of Treatment Twice a Day Treatment Plan Physical Therapy Treatment Plan Bed Mobility Training,Transfer Training,Gait Training, Therapeutic Exercise,Balance Retraining,Post Op Education, Discharge Planning,Hot or Cold Pack,Neuromuscular Re-ed, Coordination Retraining,Manual Therapy Recommendations To Nursing Amount of Assist Needed 2 Person Assist Discharge Recommendations PT Discharge Recommendations SNF Rehab Transportation Needs at Discharge Wheelchair/Cabulance
--- NOTE | 2019-10-01 14:31 | PT.IPTN ---
Current Diagnoses Spinal stenosis, cervical region (09/27/19) Other cervical disc displacement, unspecified cervical region (09/27/19) Strain of muscle, fascia and tendon at neck level, initial encounter (09/27/19) Surgery Performed Operation Date: 09/27/19 12:15 Actual Procedures p C56 anterior cervical discectomy & fusion w/ bone graft - Jerry Rojas MD Physical Therapy Treatment Note M2 PT-IP Current Condition Start: 09/28/19 11:42 Freq: NEEDED Status: Discharge Protocol: Document 09/28/19 09:10 AB (Rec: 09/28/19 11:56 AB [id number]) Physical Therapy Current Condition Current Condition Evaluation Date 09/28/19 Treatment Diagnosis s/p C5-6 ACDF; difficulty in walking Onset Date 09/27/19 Precautions Cervical Spine Precautions Soft Collar for Comfort,No Heavy Lifting,Log Roll Other Precautions falls M3 PT-IP Subjective Start: 09/28/19 11:42 Freq: NEEDED Status: Discharge Protocol: Document 10/01/19 14:21 KS (Rec: 10/01/19 14:48 KS [id number]) Subjective Physical Therapy Visit Type Type Treatment Note Visit Start Time 14:21 Visit Stop Time 14:31 Total Visit Minutes 10 Number of FRONT MAKER LOCKSTITCH Visits 5 Physical Therapy Visit Comments Patient Comments Pt agreeable to transfer to wheelchair for d/c. M4 PT-IP Mobility and Gait Start: 09/28/19 11:42 Freq: NEEDED Status: Discharge Protocol: Document 10/01/19 14:21 KS (Rec: 10/01/19 14:48 KS [id number]) PT-Bed Mobility Assessment Scooting Scooting to Edge of Bed Maximum Assistance PT-Transfer Assessment Sit to and From Stand Sit to and from Stand Moderate Assistance,Maximum Assistance,1 Person Assistance ,Use of Upper Extremities Equipment Transfer Assistive Device Gait Belt,Front Wheeled Walker Orthotic/Prosthetic Devices or Brace: Yes Transfers Transfer Destination Wheelchair Transfer Technique Stand Step Pivot Transfer Ability Level of Assist Moderate Assistance,Maximum Assistance,1 Person Assistance ,2 Person Assistance,Use of Upper Extremities Comments Mobility Comments Pt in recliner upon arrival from therapy. Max A for scooting to edge of chair. Mod x2 for sit<>stand w/ FWW. Mod to Max A x2 for stand step pivot transfer to wheelchair w / max verbal and tactile cues for upright posture, FWW management, and LE guidance/ steps. Mod A and max cues for hand placement and sequencing for stand<>sit in w/c. Pt left in w/c w/ PREPARER in preparation to d/c to rehab. Gait Assessment Gait Gait Assistance Required: Moderate Assistance,Maximum Assistance,1 Person Assist,2 Person Assist Distance (Feet) 2 Able to Maintain Weight Bearing Status Yes During Gait Assistive Devices Assistive Device Gait Belt,Front Wheeled Walker Gait Deviations General Gait Pattern Antalgic,Decreased Stride Length,Decreased Feet Clearance,Flexed Trunk,Step-to Gait Factors Limiting Gait Function Factors Limiting Gait Function Decreased Activity Tolerance, Decreased Strength,Difficulty Following Directions,Limited Range of Motion,Poor Balance, Poor Safety Awareness Comments Gait Comments Please refer to mobility section for details. Pt only able to tolerate 1x stand step pivot transfers w/ Mod A to Max A x2 max cues. PT-Balance Assessment Sitting Balance and Reactions Static Sitting Balance Ability Fair Dynamic Sitting Balance Ability Poor Standing Balance and Reactions Static Standing Balance Ability Fair Dynamic Standing Balance Ability Poor Device Used FWW M5 PT-IP Objective Assessments Start: 09/28/19 11:42 Freq: NEEDED Status: Discharge Protocol: Document 09/28/19 09:10 AB (Rec: 09/28/19 11:56 AB [id number]) Orientation Orientation/Cognition Level of Alertness Lethargic Orientation Name Language Function Ability Hard of Hearing Safety Awareness Decreased Safety Awareness Memory Description Short Term Impaired Gross Range of Motion Lower Extremity ROM Assessment Within Functional Limits Strength Lower Extremity Strength Hip 4-/5 Knee 4-/5 Muscle Tone Muscle Tone WNL Yes M6 PT-IP Treatment Start: 09/28/19 11:42 Freq: NEEDED Status: Discharge Protocol: Document 10/01/19 14:21 KS (Rec: 10/01/19 14:48 KS [id number]) Physical Therapy Treatment Education Education Provided Precautions,Safety M7 PT-IP Assessment and Plan Start: 09/28/19 11:42 Freq: NEEDED Status: Discharge Protocol: Document 10/01/19 14:21 KS (Rec: 10/01/19 14:48 KS [id number]) PT Summary Assessment and Plan Potential Rehabilitation Potential Fair Summary Impairments Pain,ROM,Strength,Balance, Coordination,Sensation,Tone, Cognition,Bed Mobility, Transfers,Gait,Activity Tolerance Progress Towards Goals Slow Progress due to Medical Issues,Slow Progress due to Activity Tolerance,Slow Progress - Other Assessment Summary Pt Max A for scooting, Mod to Max x1 for sit<>stand, Mod to Max x2 for stand step pivot. Mod A x1 for stand<>sit. Pt required Max verbal and tactile cues for all mobility. Pt will require SNF to improve strength and functional mobility. Goals Bed Mobility Goal Standby Assistance Transfer Goal Standby Assistance,Front Wheeled Walker Gait Goal Standby Assistance,Front Wheel Walker Gait Distance 100 Other Goals up/down 4 steps L rail ascending SBA Days to Meet Goals 5 Frequency of Treatment Frequency Of Treatment Twice a Day Treatment Plan Physical Therapy Treatment Plan Bed Mobility Training,Transfer Training,Gait Training, Therapeutic Exercise,Balance Retraining,Post Op Education, Discharge Planning,Hot or Cold Pack,Neuromuscular Re-ed, Coordination Retraining,Manual Therapy Recommendations To Nursing Amount of Assist Needed 2 Person Assist Discharge Recommendations PT Discharge Recommendations SNF Rehab Transportation Needs at Discharge Wheelchair/Cabulance
--- NOTE | 2019-10-01 14:31 | OT.IP.TRT ---
Current Diagnoses Spinal stenosis, cervical region (09/27/19) Other cervical disc displacement, unspecified cervical region (09/27/19) Strain of muscle, fascia and tendon at neck level, initial encounter (09/27/19) Surgery Performed Operation Date: 09/27/19 12:15 Actual Procedures p C56 anterior cervical discectomy & fusion w/ bone graft - Jerry Rojas MD Occupational Therapy Treatment Note M2 OT-IP Current Condition Start: 09/28/19 15:54 Freq: Status: Active Protocol: Document 09/28/19 14:30 [facility] (Rec: 09/28/19 16:21 [facility] [id number]) Occupational Therapy Current Condition Current Condition Evaluation Date 09/28/19 Treatment Diagnosis Cervical stenosis, s/p c5-6 ant. cervical discectomy and fusion Diagnosis Onset Date 09/27/19 Post Operative Precautions Cervical Spine Precautions Soft Collar for Comfort,No Heavy Lifting,Log Roll M3 OT- IP Subjective and Pain Start: 09/28/19 15:54 Freq: Status: Active Protocol: Document 10/01/19 14:30 [facility] (Rec: 10/01/19 14:31 [facility] [id number]) OT- Subjective Occupational Therapy Visit Type Type Administrative Note Notes Pt preparing for discharge, already dressed and P.T. present to assist with transfer to w/c. No OT services rendered.
== END 2019-10-01 14:00 | DRG 472 ==
PROVIDERS: Nurse Practitioner Adult Health; Admitting Provider Orthopaedic Surgery; PCP Family Medicine; Referring Provider Family Medicine; Visit Provider Orthopaedic Surgery
PROC: 0RG10A0 Fusion of Cervical Vertebral Joint with Interbody Fusion Device, Anterior Approach, Anterior Column, Open Approach (ICD-10-PCS; principal; 2019-09-27 12:15)
DX: M48.02 Spinal stenosis, cervical region (principal); M50.022 Cervical disc disorder at C5-C6 level with myelopathy; M50.20 Other cervical disc displacement, unspecified cervical region; I10 Essential (primary) hypertension; F32.9 Major depressive disorder, single episode, unspecified; I25.10 Atherosclerotic heart disease of native coronary artery without angina pectoris; G25.2 Other specified forms of tremor; E78.5 Hyperlipidemia, unspecified; E11.65 Type 2 diabetes mellitus with hyperglycemia; T43.595A Adverse effect of other antipsychotics and neuroleptics, initial encounter; T48.205A Adverse effect of unspecified drugs acting on muscles, initial encounter; R41.0 Disorientation, unspecified; Z79.4 Long term (current) use of insulin; Z87.891 Personal history of nicotine dependence; Z11.59 Encounter for screening for other viral diseases
CPT/HCPCS: 72040; 72125; 76000; 80048; 81001; 82962; 83735; 84100; 87635; 94760; 97116; 97162; 97165; 97530; 97535; C1776; J0330; J0690; J1170; J2250; J2270; J2405; J2704; J3010

== ENCOUNTER → 2021-07-09 11:13 | Outpatient (CLI) | payer MEDICARE, OTHER, SELFPAY ==
[2019-09-27 15:05] VITALS: BMI 34.3
[2021-07-09 12:35] LABS: COVID19 -Nasal RAPID Negative (Negative)
== END ==
PROVIDERS: PCP Family Medicine; Visit Provider Family Medicine Sleep Medicine
DX: Z20.822 Contact with and (suspected) exposure to COVID-19 (principal)
CPT/HCPCS: 87635; C9803

== ENCOUNTER 2021-07-10 12:05 | Inpatient (IN) | payer MEDICARE, OTHER, SELFPAY ==
[2019-09-27 15:05] VITALS: BMI 34.3
[2021-07-02 12:37] VITALS: BMI 30.9
[2021-07-10] VITALS (19 sets, daily range): BP systolic 107–130; BP diastolic 44–72; PULSE 55–87; RESP 10–18; TEMP 36.1–37.7; O2SAT 92–98; BMI 30.9
--- NOTE | 2021-07-10 | DI.RAD.S_ITS ---
PROCEDURE: XR LUMBAR SPINE 2-3V INDICATIONS: L3-4 TLIF TECHNIQUE: 3 views of the lumbar spine were acquired. COMPARISON: [facility], CT, CT LUMBAR SPINE WITHOUT CONTRAST, 05/07/2021, 12:03. FINDINGS: Bones: 2 fluoroscopic images of the lumbar spine demonstrate interval posterior/interbody fusion at the L3-L4 level. Posterior fixation hardware and intervertebral spacer devices in expected positions. IMPRESSION: 2 fluoroscopic images demonstrate interval posterior/interbody fusion at the L3-L4 level. Dictated by: [facility] Interpreted: Harvey Castro MD on 07/10/2021 at 16:25 Approved by: Harvey Castro M.D. on 07/10/2021 at 17:18
--- NOTE | 2021-07-10 13:20 | PM.PREOP ---
Pre-operative Note COVID-19 COVID-19 status: Negative Result date/Date tested (Pos, Neg/Pending): 07/09/21 Criteria for continued procedure: Expected advancement of disease process, Possibility delay results in more complex future surgery or treatment, Increased loss of function, Continuing or worsening of significant or severe pain, Deterioration of the patient's condition or overall health and Delay expected to result in less-positive ultimate med/surg outcome Interval Note History & Physical reviewed/Exam performed by Physician: Yes Changes to H&P: No
[2021-07-10] MEDS: LACTATED RINGERS 1,000 ML 42 ML IV ×2 (13:37→15:13)
[2021-07-10] MEDS: CEFAZOLIN 2 GM/20 ML SYRINGE IV ×2 (13:49→21:15)
--- NOTE | 2021-07-10 14:26 | SUR.OPER ---
Addendum entered by Lola Cuevas R.N. 07/10/21 14:29: Gel pad between the heels. Original Note: Prone on spine table, head in foam head support, padded chest and pelvic supports, gel pad at knees, lower legs supported by pillows; nipples, genitalia and toes free of pressure, arms secured on foam padded arm boards at <90 degrees abduction. Tape over blanket at thigh secured to table.
[2021-07-10] MEDS: ACETAMINOPHEN IV 1,000 MG/100 ML VIAL 400 MG IV (15:53)
[2021-07-10] MEDS: BUPIVACAINE LIPOSOME 266 MG/20 ML VIAL INJ (16:12)
[2021-07-10] MEDS: BUPIVACAINE 0.25% (PF) 30 ML, EPINEPHrine 0.3 MG INJ (16:12)
--- NOTE | 2021-07-10 16:26 | PM.OP.1 ---
Operative Date/Time/Diagnoses Date of procedure: 07/10/21 Time of procedure: 13:00 Pre-op diagnosis: 1. L3-4, L4-5 spinal stenosis with neurogenic claudication 2. Lumbar spondylosis with radiculopathy Post-op diagnosis: same Procedure & Clinicians Procedure: 1. L3-4 Postero-lateral and posterior interbody fusion 2. L3-4 interbody cage placement. 3. L3-4 decompressive laminectomy with bilateral facetecomies 4. L3-4 Posterior non-segmental instrumentation 5. L4-5 left hemilaminectomy 6. Cherry Log of bone marrow from iliac crest 7. Utilization of microsurgical technique and operating microscope Same procedure as scheduled: Yes Indications: Patient has been having chronic back pain and worsening lumbar radiculopathy. Patient failed multiple conservative management with worsening pain weakness and numbness in her lower extremity. Patient has been having difficulty performing activity of daily living. After discussing risks benefits of treatment options, patient elected proceed with surgery. Surgeon: Kb Valente Planting Material Carrier: Tisha Prado Click Yes if Unassisted: No Anesthesia Type: General Operative Notes Closure Type: primary Specimen(s): none sent Prosthetic devices, grafts, tissues, transplants, or devices: Globus Revolve screws, Rise cage Estimated Blood Loss (mL): 50 Blood products transfused: none Procedure in detail: Patient was seen in the preoperative area. Risks and benefits of the surgery was discussed with the patient. Informed consent was obtained from the patient and placed in the chart. Surgical site was marked. Patient was taken to the operative room. General anesthesia was administered. Prophylactic antibiotic was given to the patient less than 30 min before the incision was made. Patient was placed into a prone position on the El table. Patient's back was then prepped and draped in the sterile fashion. Time-out was performed at this time. Using AP and lateral C-arm imaging the interval between L3-4 L4-5 was identified and marked on patient's back. A 2 inch incision 2 in from midline was made on the left side first. The fascia was incised in line with skin incision. Globus MARS retractors was placed inside the incision and docked onto the L3 lamina. Using microsurgical technique and operating microscope, a L3 laminectomy and L3-4 facetectomy was performed using a Kerrison rongeur. The disc space at L3-4 was identified. And a total diskectomy was performed at L3-4 level. The endplates were decorticated using a rasp and shaver. The total diskectomy and decortication was performed at L3-4 level in order to to accomplish a [] fusion. The local bone from the laminectomy and facetectomy was saved for local bone grafting. After the total diskectomy and decortication was completed, Globus Trifecta bone graft material was combined with local bone that was harvested earlier. At this time, a separate skin is incision was made over the iliac crest. A Jamshidi needle was inserted into the iliac crest through a separate skin incision. 5 cc of bone marrow aspiration was obtained through the separate skin incision using a Jamshidi needle from the iliac crest. The bone marrow aspiration was combined with local bone and the Trifecta bone grafting material. The bone grafting material was placed into the L3-4 interbody space along with a expandable cage. The cage was expanded to its maximum height using the torque limiting screwdriver. At this time the MARS retractor was redirected over the L4 lamina. Using microsurgical technique and operating microscope, a L4-5 heminectomy was performed using the Kerrison rongeur. The ligamentum flavum was also resected at the side of the hemilaminectomy for further decompression of the epidural space. At this time a mirror image incision was made on the right side. The fascia was incised in line with the skin incision. Globus MARS retractor was inserted and docked onto the L3-4 posterolateral gutter. Using the power drill, posterior-lateral decortication was performed at L3-4 level until bleeding cortical bone was identified. The remaining bone grafting material was placed into the L3-4 posterior lateral gutter he order to accomplish posterolateral fusion at the L3-4 level. Using the double C-arm technique, pedicle screws were placed into the L3 and L4 pedicles bilaterally. This was done by placing the Jamshidi needle into the pedicles, then placing the guidewires over the Jamshidi needle, and finally placing the cannulated screws over the guidewires bilaterally. After the pedicle screws were placed, 2 titanium rods was locked into the heads of the pedicle screws using locking caps and torque limiting screwdriver. After all the hardware was placed, and confirmed with AP and lateral C-arm imaging, the wound was then irrigated with sterile normal saline and packed with Ray-Dena gauze for 3 min to accomplish hemostasis. After the gauze was removed the deep fascia was closed with #1 Vicryl suture. The subcutaneous layer was closed with 2-0 Vicryl. The skin was closed with skin micah. Patient tolerated the procedure well. There were no complications. Complications: none Post-operative Condition: stable Disposition: PACU Plan for aftercare: Admit to inpatient hospital
--- NOTE | 2021-07-10 16:55 | SUR.PHASEI ---
7115 patient responding to jaw thrust and voice. oral airway dc'd. Very sleepy, not able to converse.
--- NOTE | 2021-07-10 17:18 | SUR.PHASEI ---
Continues to sleep with occasional jaw thrust. Trial on LIMNOLOGIST down to 88% 4-5L; returned to simple mask at 9L. Sat up to 95%.
--- NOTE | 2021-07-10 17:30 | SUR.PHASEI ---
Report called to acute care. Patient continues to sleep, arouses easily to voice. Denies pain/nausea. Resp even and regular, Maintaining sat 92-95% on simple mask at 9L.
--- NOTE | 2021-07-10 18:10 | SUR.PHASEI ---
HOB elevated, patient responsive to voice, smiled. Continues to have no pain/nausea. No airway restriction with HOB elevated, maintaining sat at 96-97% on 5L simple mask. Updated coordinator and will take the patient to her room.
--- NOTE | 2021-07-10 18:24 | SUR.PHASEI ---
consulted with coordinator prior to transfer. Staff will ensure continuous pulse oximetry for patient
--- NOTE | 2021-07-10 18:41 | SUR.PHASEI ---
1825 to room 218 with brown cloth bag, white clothing bag, and cane. Connected to O2 at 5L simple mask. Resp unlabored. Patient responds to voice, smiles, call light within reach. Patient update given, they will put her on a continuous pulse oximeter (coordinator informed), daughter will visit tomorrow morning. VSS. Continues to be comfortable with no pain or nausea.
[2021-07-10] MEDS: SODIUM CHLORIDE 0.9% 1,000 ML 100 ML IV (18:48)
[2021-07-11 02:05] VITALS: PULSE 76; RESP 14; O2SAT 97
[2021-07-11 04:00] VITALS: BP 130/67; PULSE 65; RESP 18; TEMP 36.6; O2SAT 96; O2SAT 97
--- NOTE | 2021-07-11 04:01 | PC.NURSE ---
2300: assumed care of patient. drowsy, opens eyes w/ verbal stimulus, promptly falls asleep. denies pain/discomfort. limited movement w/ LE's, but can wiggle toes. 0400: o2 wean from simple mask at 5lpm- tolerated 3L, NC applied. satting high 90's since o2 weaned down to 1.5lpm via NC. no respiratory distress noted. patient remains drowsy, oriented x 4. 1-2 PA bed mobility, able to assist w/ moving. follows simple commands, moved onto her left side; HOB up 15 degrees for comfort. ALISHA drain patent, tubing is not kinked, green light is flashing. purewick in place, collecting oscar urine. 0500: c/o back pain not resolving w/ repositioning. PRN norco 1 tab given for reported 6/10 mid back px. bed is in lowest position, bed alarm is on, call light w/in reach.
[2021-07-11] MEDS: SODIUM CHLORIDE 0.9% 1,000 ML 100 ML IV (04:25)
[2021-07-11] MEDS: ENTACAPONE 200 MG TABLET PO ×5 (04:25→22:46)
[2021-07-11] MEDS: ONDANSETRON 4 MG/2 ML INJ IV (04:25)
[2021-07-11] MEDS: CEFAZOLIN 2 GM/20 ML SYRINGE IV (04:26)
[2021-07-11] MEDS: HYDROCODONE/ACET 5/325 TABLET 1 TAB PO ×2 (04:26→17:54)
[2021-07-11 08:00] VITALS: BP 126/54; PULSE 72; RESP 16; TEMP 36.8; O2SAT 95
[2021-07-11] MEDS: CITALOPRAM 10 MG TABLET 20 MG PO (09:17)
[2021-07-11] MEDS: DOCUSATE 100 MG CAPSULE PO ×2 (09:17→21:06)
[2021-07-11] MEDS: PANTOPRAZOLE DR 40 MG TABLET PO ×2 (09:18→21:06)
[2021-07-11] MEDS: GABAPENTIN 600 MG TABLET PO ×2 (09:18→21:06)
[2021-07-11] MEDS: CARBIDOPA-LEVODOPA 25/100 TABLET 0.5 EACH PO ×4 (09:18→21:07)
[2021-07-11] MEDS: CARBIDOPA-LEVODOPA 25/100 TABLET 1 EACH PO (09:18)
[2021-07-11] MEDS: SODIUM CHLORIDE 0.9% 1,000 ML 250 ML IV (09:50)
[2021-07-11] MEDS: SODIUM CHLORIDE 0.9% 500 ML 250 ML IV (09:54)
--- NOTE | 2021-07-11 10:05 | PT.IIE ---
Current Diagnoses Other spondylosis with radiculopathy, lumbar region (07/10/21) Spinal stenosis, lumbar region with neurogenic claudication (07/10/21) Surgery Performed Operation Date: 07/10/21 13:45 Actual Procedures p L3-4 TLIF, L4-5 hemilaminectomy - Kb Vaelnte MD Medical History (Last Updated 07/10/21 @ 13:02 by Calos Son RN) Arthritis Godfrey's esophagus CAD (coronary artery disease) Carotid artery disease CKD (chronic kidney disease) Depression Diabetes Gastric ulcer GERD (gastroesophageal reflux disease) HLD (hyperlipidemia) HTN (hypertension) Itch of skin Parkinson disease Poor balance Presence of device Tremor of both hands Physical Therapy Inpatient Evaluation/Re-Eval M1 PT/OT-IP Prior Functional Status Start: 07/11/21 13:10 Freq: NEEDED Status: Active Protocol: Document 07/11/21 10:05 AB (Rec: 07/11/21 13:21 AB [email or web address]) Medical Review Prior Functional Status Medical History Reviewed Yes Communication able to make needs known Mobility and Gait pt stated that she is modified independent with all mobilities and ambulation using a SPC Social History Household Members children Living Arrangements Mobile home Number of Floors (Floors) One Floor Number of Stairs To Enter/Railing? 4 steps wide rails to enter Home Environment Standard Height Toilet,Walk in Shower Home Equipment Front Wheel Walker,Four Wheel Walker,Straight Cane,Shower Seat with Backrest,Hand Held Shower,Grab Bars Near Toilet, Grab Bars In Shower Additional Social History Comment pt stated that her daughter lives with her and will be able to assist her pt stated that she has an adjustable bed with B rails M2 PT-IP Current Condition Start: 07/11/21 13:10 Freq: NEEDED Status: Active Protocol: Document 07/11/21 10:05 AB (Rec: 07/11/21 13:21 AB [email or web address]) Physical Therapy Current Condition Current Condition Evaluation Date 07/11/21 Treatment Diagnosis s/p L3-4 TLIF; L4-5 hemilami; difficulty in walking Onset Date 07/10/21 M3 PT-IP Subjective Start: 07/11/21 13:10 Freq: NEEDED Status: Active Protocol: Document 07/11/21 10:05 AB (Rec: 07/11/21 13:21 AB [id number]) Subjective Physical Therapy Visit Type Type Initial Evaluation Visit Start Time 10:05 Visit Stop Time 10:50 Total Visit Minutes 45 Number of LOW PRESSURE KETTLE OPERATOR Visits 0 Physical Therapy Visit Comments Patient Comments agreeable to do PT but with confusion Therapy Pain Assessment Pain When Pain Assessed During Mobility Pain Present Pain Present Pain Reported Location Back Scale Used pain scale not stated M4 PT-IP Mobility and Gait Start: 07/11/21 13:10 Freq: NEEDED Status: Active Protocol: Document 07/11/21 10:05 AB (Rec: 07/11/21 13:21 [email or web address]) PT-Bed Mobility Assessment Rolling Type of Rolling Log Rolling Level of Assist Maximal Assistance Supine to Sit Supine to Sit Maximum Assistance PT-Transfer Assessment Sit to and From Stand Sit to and from Stand Maximum Assistance,2 Person Assistance,Use of Upper Extremities Equipment Transfer Assistive Device Gait Belt,Front Wheeled Walker Orthotic/Prosthetic Devices or Brace: No Transfers Transfer Destination Chair Transfer Technique Stand Step Pivot Transfer Ability Level of Assist Maximum Assistance,2 Person Assistance,Use of Upper Extremities Comments Mobility Comments educated pt with back precautions and log roll bed mobility but pt with confusion and unable to recall. needs max cues with all tasks. BP supine: 121/45. completed log roll bed mobility supine to sit max A and max cues x 3 attempts. increase pushing back to bed in the attempt to sit up. able to sit on EOB mod A for sitting balance. presents with increase posterior trunk lean. requires max A and pt with increase reaction time to follow directions. BP in sittin/51 completed sit to stand x 2 attempts and completed max A x 2 and max cues. completed step transfer to chair max A x 2 and max cues. refused to ambulation but agreed to sit on the chair. positioned pt on the chair. call light and table placed within reach. BP sittin/71 PT-Balance Assessment Sitting Balance and Reactions Static Sitting Balance Ability Fair Dynamic Sitting Balance Ability Poor Standing Balance and Reactions Static Standing Balance Ability Poor Dynamic Standing Balance Ability Poor Device Used FWW M5 PT-IP Objective Assessments Start: 07/11/21 13:10 Freq: NEEDED Status: Active Protocol: Document 07/11/21 10:05 AB (Rec: 07/11/21 13:21 AB [id number]) Orientation Orientation/Cognition Level of Alertness Confusional State Orientation Name Language Function Ability No Deficits Noted Safety Awareness Decreased Safety Awareness Memory Description Short Term Impaired Gross Range of Motion Lower Extremity ROM Assessment Within Functional Limits Strength Lower Extremity Strength Hip 3+/5 Knee 4-/5 Sensation Assessment Sensation Gross Sensation WNL Muscle Tone Muscle Tone WNL Yes M6 PT-IP Treatment Start: 07/11/21 13:10 Freq: NEEDED Status: Active Protocol: Document 07/11/21 10:05 AB (Rec: 07/11/21 13:21 AB [id number]) Physical Therapy Treatment Education Education Provided Precautions,Weight Bearing Status,Post-Op Packet,Safety M7 PT-IP Assessment and Plan Start: 07/11/21 13:10 Freq: NEEDED Status: Active Protocol: Document 07/11/21 10:05 AB (Rec: 07/11/21 13:21 AB [email or web address]) PT Summary Assessment and Plan Potential Rehabilitation Potential Fair Status of Condition at Evaluation Evolving Summary Impairments Pain,ROM,Strength,Balance, Coordination,Sensation,Tone, Cognition,Bed Mobility, Transfers,Gait,Activity Tolerance Assessment Summary pt requiring max A x2 with mobility using FWW and unable to tolerate much activity. pt with confusion affecting mobility. will continue to assess progress but at this time will require SNF rehab to improve strength and functional independence to safely go home. will conduct caregiver training when appropriate as well as stair climbing training. Goals Bed Mobility Goal Standby Assistance Transfer Goal Standby Assistance,Front Wheeled Walker Gait Goal Standby Assistance,Front Wheel Walker Gait Distance 150 Other Goals up/down 4 steps 1 rail SBA Days to Meet Goals 10 Frequency of Treatment Frequency Of Treatment Twice a Day Treatment Plan Physical Therapy Treatment Plan Bed Mobility Training,Transfer Training,Gait Training, Therapeutic Exercise,Balance Retraining,Post Op Education, Discharge Planning,Hot or Cold Pack,Neuromuscular Re-ed, Coordination Retraining,Manual Therapy Precautions Lumbar Precautions Log Roll,No Twisting,Limit Bending,Lifting Restriction of 10 lbs,Gait Belt above Incisional Area Recommendations To Nursing Amount of Assist Needed 2 Person Assist Discharge Recommendations PT Discharge Recommendations Home with 01/09 Assist Available,Home Health,SNF Rehab,Home vs SNF Transportation Needs at Discharge Private Vehicle,Wheelchair/ Cabulance
[2021-07-11 13:37] VITALS: BP 106/71; PULSE 72; RESP 19; TEMP 36.7; O2SAT 95
--- NOTE | 2021-07-11 14:05 | PT.IPTN ---
Current Diagnoses Other spondylosis with radiculopathy, lumbar region (07/10/21) Spinal stenosis, lumbar region with neurogenic claudication (07/10/21) Surgery Performed Operation Date: 07/10/21 13:45 Actual Procedures p L3-4 TLIF, L4-5 hemilaminectomy - Kb Valente MD Physical Therapy Treatment Note M2 PT-IP Current Condition Start: 07/11/21 13:10 Freq: NEEDED Status: Active Protocol: Document 07/11/21 10:05 AB (Rec: 07/11/21 13:21 AB [email or web address]) Physical Therapy Current Condition Current Condition Evaluation Date 07/11/21 Treatment Diagnosis s/p L3-4 TLIF; L4-5 hemilami; difficulty in walking Onset Date 07/10/21 M3 PT-IP Subjective Start: 07/11/21 13:10 Freq: NEEDED Status: Active Protocol: Document 07/11/21 13:53 [place] (Rec: 07/11/21 14:57 KS [id number]) Subjective Physical Therapy Visit Type Type Treatment Note Visit Start Time 13:53 Visit Stop Time 14:05 Total Visit Minutes 12 Notes co-treat w/ OT Number of TELECINE OPERATOR Visits 1 Physical Therapy Visit Comments Patient Comments agreeable to do PT but with confusion Therapy Pain Assessment Pain When Pain Assessed During Mobility Pain Present Pain Present Pain Reported M4 PT-IP Mobility and Gait Start: 07/11/21 13:10 Freq: NEEDED Status: Active Protocol: Document 07/11/21 13:53 [place] (Rec: 07/11/21 14:57 KS [id number]) PT-Bed Mobility Assessment Rolling Type of Rolling Log Rolling Level of Assist Maximal Assistance Sit to Supine Sit to Supine Maximum Assistance,2 Person Assistance,Head of Bed Elevated Scooting Scooting to Edge of Bed Maximum Assistance PT-Transfer Assessment Sit to and From Stand Sit to and from Stand Maximum Assistance,2 Person Assistance,Use of Upper Extremities Equipment Transfer Assistive Device Gait Belt,Front Wheeled Walker Orthotic/Prosthetic Devices or Brace: No Transfers Transfer Destination Bed Transfer Technique Stand Step Pivot Transfer Ability Level of Assist Maximum Assistance,2 Person Assistance,Use of Upper Extremities Comments Mobility Comments Pt in chair upon arrival and still very confused but agreeable to return to bed. Pt Max A x2 and max cues to scoot to EOC. Max A x2-3 and max cues for hand placement and sequencing for sit<>stand w/ FWW. Pt then performed stand step pivot from chair to bed w/ Max A x2 and max verbal and tactile cues for FWW management. Pt Max A x2 for sit<>sup and logroll back into bed. Pt left in room w/ OT and RN. Gait Assessment Gait Gait Assistance Required: Maximum Assistance,2 Person Assist Distance (Feet) 2 Assistive Devices Assistive Device Gait Belt,Front Wheeled Walker Comments Gait Comments SSP only PT-Balance Assessment Sitting Balance and Reactions Static Sitting Balance Ability Fair Dynamic Sitting Balance Ability Poor Standing Balance and Reactions Static Standing Balance Ability Poor Dynamic Standing Balance Ability Poor Device Used FWW M5 PT-IP Objective Assessments Start: 07/11/21 13:10 Freq: NEEDED Status: Active Protocol: Document 07/11/21 10:05 AB (Rec: 07/11/21 13:21 AB [id number]) Orientation Orientation/Cognition Level of Alertness Confusional State Orientation Name Language Function Ability No Deficits Noted Safety Awareness Decreased Safety Awareness Memory Description Short Term Impaired Gross Range of Motion Lower Extremity ROM Assessment Within Functional Limits Strength Lower Extremity Strength Hip 3+/5 Knee 4-/5 Sensation Assessment Sensation Gross Sensation WNL Muscle Tone Muscle Tone WNL Yes M6 PT-IP Treatment Start: 07/11/21 13:10 Freq: NEEDED Status: Active Protocol: Document 07/11/21 13:53 [place] (Rec: 07/11/21 14:57 KS [id number]) Physical Therapy Treatment Education Education Provided Safety M7 PT-IP Assessment and Plan Start: 07/11/21 13:10 Freq: NEEDED Status: Active Protocol: Document 07/11/21 13:53 KS (Rec: 07/11/21 14:57 KS [id number]) PT Summary Assessment and Plan Potential Rehabilitation Potential Fair Status of Condition at Evaluation Evolving Summary Impairments Pain,ROM,Strength,Balance, Coordination,Sensation,Tone, Cognition,Bed Mobility, Transfers,Gait,Activity Tolerance Assessment Summary Pt limited by confusion and requiring Max A x2 and max cues for all tasks. Able to perform stand step pivot w/ FWW, but unsafe to ambulate at this time due to assist level and confusion. At this time, pt will require SNF to improve functional mobility, strength , and safety. Goals Bed Mobility Goal Standby Assistance Transfer Goal Standby Assistance,Front Wheeled Walker Gait Goal Standby Assistance,Front Wheel Walker Gait Distance 150 Other Goals up/down 4 steps 1 rail SBA Days to Meet Goals 10 Frequency of Treatment Frequency Of Treatment Twice a Day Treatment Plan Physical Therapy Treatment Plan Bed Mobility Training,Transfer Training,Gait Training, Therapeutic Exercise,Balance Retraining,Post Op Education, Discharge Planning,Hot or Cold Pack,Neuromuscular Re-ed, Coordination Retraining,Manual Therapy Precautions Lumbar Precautions Log Roll,No Twisting,Limit Bending,Lifting Restriction of 10 lbs,Gait Belt above Incisional Area Recommendations To Nursing Amount of Assist Needed 2 Person Assist Discharge Recommendations PT Discharge Recommendations Home with 01/09 Assist Available,Home Health,SNF Rehab,Home vs SNF Transportation Needs at Discharge Private Vehicle,Wheelchair/ Cabulance
--- NOTE | 2021-07-11 14:08 | OT.IP.EVAL ---
Current Diagnoses Other spondylosis with radiculopathy, lumbar region (07/10/21) Spinal stenosis, lumbar region with neurogenic claudication (07/10/21) Surgery Performed Operation Date: 07/10/21 13:45 Actual Procedures p L3-4 TLIF, L4-5 hemilaminectomy - Kb Valente MD Past Medical History (Last Updated 07/10/21 @ 13:02 by Calos Son, RN) Arthritis Godfrey's esophagus CAD (coronary artery disease) Carotid artery disease CKD (chronic kidney disease) Depression Diabetes Gastric ulcer GERD (gastroesophageal reflux disease) History of arthroplasty of left knee (~2015) History of bladder surgery History of hysterectomy History of lumbar surgery HLD (hyperlipidemia) HTN (hypertension) Hx of bilateral cataract extraction Hx of breast reduction, elective Hx of cardiac cath (2011) Hx of fusion of cervical spine (09/27/19) Hx of hernia repair Hx of left breast biopsy Hx of toe surgery Hx of tonsillectomy Hx of unilateral oophorectomy Itch of skin Parkinson disease Poor balance Presence of device Tremor of both hands Surgical History (Last Reviewed 07/10/21 @ 12:24 by Calos Son, INESSA) History of arthroplasty of left knee (~2015) History of bladder surgery History of hysterectomy History of lumbar surgery Hx of bilateral cataract extraction Hx of breast reduction, elective Hx of cardiac cath (2011) Hx of fusion of cervical spine (09/27/19) Hx of hernia repair Hx of left breast biopsy Hx of toe surgery Hx of tonsillectomy Hx of unilateral oophorectomy Occupational Therapy Inpatient Evaluation/Re-Eval M1 PT/OT-IP Prior Functional Status Start: 07/11/21 13:10 Freq: NEEDED Status: Active Protocol: Document 07/11/21 13:54 [facility] (Rec: 07/11/21 15:10 [facility] [id number]) Medical Review Prior Functional Status Medical History Reviewed Yes Communication able to make needs known Mobility and Gait pt stated that she is modified independent with all mobilities and ambulation using a SPC Activities of Daily Living and IADL's Pt not able to state as not very confused at this time. Per OT eval note in 09/2019 as pt had a cervical sx, pt's daughter was assist her with LB dressig needs and shower. Social History Household Members children Living Arrangements Mobile home Number of Floors (Floors) One Floor Number of Stairs To Enter/Railing? 4 steps wide rails to enter Home Environment Standard Height Toilet,Walk in Shower Home Equipment Front Wheel Walker,Four Wheel Walker,Straight Cane,Shower Seat with Backrest,Hand Held Shower,Grab Bars Near Toilet, Grab Bars In Shower Additional Social History Comment pt stated that her daughter lives with her and will be able to assist her pt stated that she has an adjustable bed with B rails M2 OT-IP Current Condition Start: 07/11/21 14:43 Freq: Status: Active Protocol: Document 07/11/21 13:54 [facility] (Rec: 07/11/21 15:10 [facility] [id number]) Occupational Therapy Current Condition Current Condition Evaluation Date 07/11/21 Treatment Diagnosis s/p L3-4, L4-5 TLIF Diagnosis Onset Date 07/10/21 Post Operative Precautions Lumbar Precautions Log Roll,No Twisting,Limit Bending,Lifting Restriction of 10 lbs,Gait Belt above Incisional Area M3 OT- IP Subjective and Pain Start: 07/11/21 14:43 Freq: Status: Active Protocol: Document 07/11/21 13:54 [facility] (Rec: 07/11/21 15:10 [facility] [id number]) OT- Subjective Occupational Therapy Visit Type Type Initial Evaluation Visit Start Time 13:54 Visit Stop Time 14:08 Total Visit Minutes 14 Occupational Therapy Visit Comments Patient Comments Pt agreed to get back to bed. Pt very confused and just orientated to her name Patient/Caregiver Goals Pt did not state OT Pain Assessment Pain When Pain Assessed During Mobility Pain Present Pain Present Pain Reported M4 OT- IP ADL's Start: 07/11/21 14:43 Freq: Status: Active Protocol: Document 07/11/21 13:54 [facility] (Rec: 07/11/21 15:10 [facility] [id number]) OT [id number] Comments OT Self-Feeding Comments NOt at meal time. OT ADL-Grooming Comments OT Grooming Comments Not performed. OT ADL-Oral Care Comments Oral Care Comments Not performed. OT ADL-Dressing General Eval Lower Body Dressing Ability Total Assistance OT ADL-Toileting General Evaluation Toileting Ability Total Assistance Areas Needing Assistance Manage Clothing,Perform Perineal Hygiene OT ADL-Bathing Comments OT Bathing Comments Sponge bath more appropriate at this tme. M5 OT- IP IADL's Start: 07/11/21 14:43 Freq: Status: Active Protocol: Document 07/11/21 13:54 [facility] (Rec: 07/11/21 15:10 [facility] [id number]) OT-Instrumental Activities of Daily Living Deficits IADL Deficits Identified Deficits Home Safety Awareness Awareness of Need for Assistance at Home Decreased Awareness Ability to Problem Solve Emergency Unable to Problem Solve Situations Home Safety Comments Pt very confused at this time and just orientated to her name. M6 OT- IP Functional Cognition Start: 07/11/21 14:43 Freq: Status: Active Protocol: Document 07/11/21 13:54 [facility] (Rec: 07/11/21 15:10 [facility] [id number]) Cognitive Factors Limiting Selfcare Function Cognitive Ability Level of Alertness Alert,Confusional State Cognitive Comments Cognitive Assessment Comments Pt just orienated to her name . Pt unaware that she had back surgery. Pt needing step by step, concrete and tactile cue and needing 2-3 person assist for mobility needs today. M7 OT- IP Mobility and Balance Start: 07/11/21 14:43 Freq: Status: Active Protocol: Document 07/11/21 13:54 [facility] (Rec: 07/11/21 15:10 [facility] [id number]) OT- Bed Mobility Assessment Rolling Type of Rolling Bilateral Level of Assistance Maximum Assistance Sit to Supine Sit to Supine Assist Maximum Assistance,2 Person Assistance OT-Transfer Assessment Sit to and From Stand Sit to and from Stand Maximum Assistance,2 Person Assistance Transfers Transfer Ability Maximum Assistance,2 Person Assistance Technique Transfer Destination Bed,Chair Transfer Technique Stand Step Pivot Devices Transfer Assistive Devices Gait Belt,Front Wheeled Walker Comments Mobility Comments MAX AX 2 to stand with FWW and another person to hold the FWW in place. Assist for balance, guiding the fww, vc for safety and hand placement. OT- Balance Assessment Sitting Balance and Reactions Static Sitting Balance Ability Fair Standing Balance and Reactions Static Standing Balance Ability Poor Dynamic Standing Balance Ability Poor M8 OT- IP Objective Assessments Start: 07/11/21 14:43 Freq: Status: Active Protocol: Document 07/11/21 13:54 [facility] (Rec: 07/11/21 15:10 [facility] [id number]) OT-Muscle Tone Assessment Muscle Tone WNL Yes M9 OT- IP Assessment and Plan Start: 07/11/21 14:43 Freq: Status: Active Protocol: Document 07/11/21 13:54 [facility] (Rec: 07/11/21 15:10 [facility] [id number]) OT Summary Assessment and Plan Potential Rehabilitation Potential Good Analytic Complexity at Evaluation Moderate Summary OT Impairments Pain,Balance,Functional Cognition,Functional Mobility, Self-Feeding,Grooming,Dressing ,Toileting,Bathing,Toilet Transfers,Shower Transfers, Activity Tolerance Progress Towards Goals Slow Progress due to Pain,Slow Progress due to Medical Issues,Slow Progress due to Activity Tolerance,Slow Progress due to Cognition Assessment Summary Pt MOD complexity and main barrier is confusion as per chart pt had difficulty with confusion after her cervical sx in 09/2019. Pt now needing extensive 2-3 person assist due to decreased balance, strength, and ability to follow commands at this time. Pt will benefit from skilled rehab when medically stable. Goals Self-Feeding Goal Standby Assistance Grooming Goal Standby Assistance Dressing Goal Moderate Assistance Toileting Goal Minimal Assistance Bathing Goal Minimal Assistance Toilet Transfer Goal Standby Assistance Shower Transfer Goal Standby Assistance Patient/Caregiver Education Goal Demonstrate Post-Op Precautions Days to Meet Goals 20 Frequency of Treatment Frequency Of Treatment Once a Day Treatment Plan OT Treatment Plan ADL Training,Functional Cognition Training,Functional Mobility,Patient/Family Education,Discharge Planning Other Treatment Recommendations and Next Transfer to [facility] with MAX AX 2 Treatment Focus with FWW. Discharge Recommendations OT Discharge Recommendations SNF Rehab Transportation Needs at Discharge Wheelchair/Cabulance
--- NOTE | 2021-07-11 14:58 | CM.DANOTE ---
Initial DCP Assessment Note Pt is a 80 yo female, resident of [place], POD1 from [facility] by Dr Valente PCP: Brian Ramires Payer: LAURA/Jasvir Reviewed chart, pt discussed w/PT Lorin who is currently recommending SNF d/t patient's confusion (pleasant confusion) and increased need for assist today Family hopeful patient will progress enough for return home w/family assist, likely would benefit from HH services; will discuss with family. Patient has some memory loss at baseline per notes Will review MCR choice list w/family; SNF vs Home w/family and HH RODOLFO Dietz Discharge Planning/Care Management CM Discharge Assessment Start: 07/11/21 14:39 Freq: Status: Active Protocol: Document 07/11/21 14:40 TRA[facility] (Rec: 07/11/21 14:58 [facility] [id number]) Discharge Planning Assessment Assigned Media Production Manager RODOLFO Mcfarlane DPOA/Assigned Designee Name Geno juancarlos Manzano Contact Information [phone], Advance Directives? Yes Advance Directives on File No History Provided By Patient,Medical Record Prior Living Arrangements Mobile home Household Members children Type of transporation used prior to Relies on Others admit Independent with ADL's Yes: Mod indp Is patient alert and oriented? No: Confusion today, memory loss at baseline Needs Assistance With Bathing,Grooming,Meal Prep, Toileting,Managing Medications ,Home Chores / Shopping Patient/Family Preference Home with Home Health Barriers to Discharge Yes Comment PT currently recommending SNF. Family hopeful patient will progress for home w/family and HH. Has supportive daughter at home. Discharge Plan Home with Home Health Transportation Arrangement Daughter Referrals Initiated Home Health Additional Comment Pending conversation with family re DCP
--- NOTE | 2021-07-11 15:50 | PM.PNPO.1 ---
Subjective Subjective Date Patient Seen: 07/11/21 Time Patient Seen: 11:00 Interval history: The patient is complaining of moderate to severe low back pain this morning. She has new left numbness/tingling that radiates to her toes, new since surgery. She has a h/o Parkinson's. Exam Vital Signs (past 8 hours): - 07/11/21 08:00 07/11/21 13:37 Temperature 98.3 F 98.0 F Pulse Rate 72 72 Respiratory Rate 16 19 Blood Pressure 126/54 L 106/71 Pulse Oximetry 95 95 Oxygen Delivery Method Room Air Oxygen Flow Rate 0 Narrative Exam Narrative: Pleasant 80yo female, resting comfortably in her chair, no actue distress. Somewhat of a flat affect. Dressing demonstrates right sided bloody drainage, no surrounding erythema or induration. Bilat lower extremities: motor funcitons are grossly intact, sensation is somewhat decreased left vs right, bilateral calves are soft and nonTTP. PFSH Medical History Arthritis Godfrey's esophagus CAD (coronary artery disease) Carotid artery disease CKD (chronic kidney disease) Depression Diabetes Gastric ulcer GERD (gastroesophageal reflux disease) HLD (hyperlipidemia) HTN (hypertension) Itch of skin Parkinson disease Poor balance Presence of device Tremor of both hands Surgical History History of arthroplasty of left knee (~2015) History of bladder surgery History of hysterectomy History of lumbar surgery Hx of bilateral cataract extraction Hx of breast reduction, elective Hx of cardiac cath (2011) Hx of fusion of cervical spine (09/27/19) Hx of hernia repair Hx of left breast biopsy Hx of toe surgery Hx of tonsillectomy Hx of unilateral oophorectomy Social History household members: children Smoking Status: Former smoker alcohol intake: former Assessment & Plan Post-op Postoperative Procedures: Procedures Operation Date: 07/10/21 13:45 Actual Procedure Side Surgeon p L3-4 TLIF, L4-5 hemilaminectomy Kb Valente MD Postoperative day: 1 Postoperative status narrative: -slow progress s/p L3-4 TLIF -Parkinson's disease Postoperative plan narrative: -mobilize with physical therapy. Limit bending, lifting, twisting x6 wks. WBAT w FWW -continue with multimodal pain management. Trying to avoid increasing narcotics d/t Parkinsons -dressing change, call if active bleeding -disposition: pt would like to be d/c'd home when safe, her daughter is there to help. I am concerned about slow progress with her Parkinson's and safety of home environment, may need to consider SNF placement.
[2021-07-11] MEDS: CARBIDOPA-LEVODOPA ER 50/200 TABLET 0.5 EACH PO (18:26)
--- NOTE | 2021-07-11 19:04 | PC.NURSE ---
Pt is AxO1-2, very confused all day. Pt's dtr who takes care of her at home states it is very normal for the this pt gets confusion after surgery. VSS, except BP is very soft this mornin/56. Thus, MD is notified and pt was given 500mgl bolus NS once and then continued 100ml/hr NS till 1800. BP has improved: 106/71 and pt is eating and drinking well. Pt has purewick and it is draining very oscar colored urine. Pt worked with PT and pt only able to chair to bed with 2-3 people assistance. Pt c/o pain on back around 1800 and recieved PRN Vina 1 tab with good effect. No other changes.
[2021-07-11 19:50] VITALS: BP 127/54; PULSE 72; RESP 16; TEMP 36.7; O2SAT 95
[2021-07-11] MEDS: SENNOSIDES 8.6 MG TABLET 17.2 MG PO (21:06)
[2021-07-11] MEDS: ATORVASTATIN 20 MG TABLET 10 MG PO (21:07)
[2021-07-11] MEDS: SODIUM CHLORIDE 0.9% FLUSH 10 ML IV (21:08)
[2021-07-11 23:36] VITALS: BP 118/48; PULSE 64; RESP 15; TEMP 36.6; O2SAT 93
--- NOTE | 2021-07-12 02:09 | PC.NURSE ---
Dressing changed slight erythema noted to incision sites. Noted scant amount of serous fluids to incision sites. Cleaned skin around the incisions with sterile NS & pat dry with 4x4. Telfa plus island barrier dressing applied, purewick also changed after good skin & le care. Pt. continues & appears drowsy since 1900. Denies any pain, will monitor.
[2021-07-12 04:43] VITALS: BP 124/55; PULSE 70; RESP 16; TEMP 36.9; O2SAT 92
[2021-07-12] MEDS: HYDROCODONE/ACET 5/325 TABLET 1 TAB PO (05:35)
[2021-07-12] MEDS: ENTACAPONE 200 MG TABLET PO ×4 (06:32→17:02)
[2021-07-12 08:06] VITALS: BP 116/58; PULSE 71; RESP 18; TEMP 36.9; O2SAT 92
[2021-07-12] MEDS: CITALOPRAM 10 MG TABLET 20 MG PO (08:14)
[2021-07-12] MEDS: PANTOPRAZOLE DR 40 MG TABLET PO ×2 (08:15→20:38)
[2021-07-12] MEDS: DOCUSATE 100 MG CAPSULE PO ×2 (08:15→20:38)
[2021-07-12] MEDS: CARBIDOPA-LEVODOPA 25/100 TABLET 1 EACH PO (08:15)
[2021-07-12] MEDS: GABAPENTIN 600 MG TABLET PO (08:15)
[2021-07-12] MEDS: CARBIDOPA-LEVODOPA 25/100 TABLET 0.5 EACH PO ×4 (08:15→20:37)
--- NOTE | 2021-07-12 08:53 | OT.IP.TRT ---
Current Diagnoses Other spondylosis with radiculopathy, lumbar region (07/10/21) Spinal stenosis, lumbar region with neurogenic claudication (07/10/21) Surgery Performed Operation Date: 07/10/21 13:45 Actual Procedures p L3-4 TLIF, L4-5 hemilaminectomy - Kb Valente MD Occupational Therapy Treatment Note M2 OT-IP Current Condition Start: 07/11/21 14:43 Freq: Status: Active Protocol: Document 07/11/21 13:54 [facility] (Rec: 07/11/21 15:10 [facility] [id number]) Occupational Therapy Current Condition Current Condition Evaluation Date 07/11/21 Treatment Diagnosis s/p L3-4, L4-5 TLIF Diagnosis Onset Date 07/10/21 Post Operative Precautions Lumbar Precautions Log Roll,No Twisting,Limit Bending,Lifting Restriction of 10 lbs,Gait Belt above Incisional Area M3 OT- IP Subjective and Pain Start: 07/11/21 14:43 Freq: Status: Active Protocol: Document 07/12/21 09:13 [facility] (Rec: 07/12/21 09:21 [facility] [id number]) OT- Subjective Occupational Therapy Visit Type Type Treatment Note Visit Start Time 08:54 Visit Stop Time 09:11 Total Visit Minutes 17 Occupational Therapy Visit Comments Patient Comments Pt agreed to get up but very sleepy. Pill found on the pt and nursing notified. Patient/Caregiver Goals Pt's family wants pt to able to go home. OT Pain Assessment Pain When Pain Assessed At Rest Pain Present Pain Present Denied Pain M4 OT- IP ADL's Start: 07/11/21 14:43 Freq: Status: Active Protocol: Document 07/11/21 13:54 [facility] (Rec: 07/11/21 15:10 [facility] [id number]) OT [id number] Comments OT Self-Feeding Comments NOt at meal time. OT ADL-Grooming Comments OT Grooming Comments Not performed. OT ADL-Oral Care Comments Oral Care Comments Not performed. OT ADL-Dressing General Eval Lower Body Dressing Ability Total Assistance OT ADL-Toileting General Evaluation Toileting Ability Total Assistance Areas Needing Assistance Manage Clothing,Perform Perineal Hygiene OT ADL-Bathing Comments OT Bathing Comments Sponge bath more appropriate at this tme. M5 OT- IP IADL's Start: 07/11/21 14:43 Freq: Status: Active Protocol: Document 07/11/21 13:54 [facility] (Rec: 07/11/21 15:10 [facility] [id number]) OT-Instrumental Activities of Daily Living Deficits IADL Deficits Identified Deficits Home Safety Awareness Awareness of Need for Assistance at Home Decreased Awareness Ability to Problem Solve Emergency Unable to Problem Solve Situations Home Safety Comments Pt very confused at this time and just orientated to her name. M6 OT- IP Functional Cognition Start: 07/11/21 14:43 Freq: Status: Active Protocol: Document 07/12/21 09:13 [facility] (Rec: 07/12/21 09:21 [facility] [id number]) Cognitive Factors Limiting Selfcare Function Cognitive Ability Level of Alertness Alert,Confusional State,Drowsy Patient Orientation Name,Place,Situation Attention Span Ability Capable of Focused Attention, Unable to Sustain Attention Ability to Follow Commands Able to Follow One Step Commands with Increased Time, Able to Follow One Step Commands with Repetition Cognitive Comments Cognitive Assessment Comments Today pt aware that she is in the hospital and had back surgery. Pt having difficulty to keep her eyes open, stay awake and follow commands. M7 OT- IP Mobility and Balance Start: 07/11/21 14:43 Freq: Status: Active Protocol: Document 07/12/21 09:13 [facility] (Rec: 07/12/21 09:21 [facility] [id number]) OT- Bed Mobility Assessment Supine to Sit Supine to Sit Assist Total Assistance,2 Person Assistance Sit to Supine Sit to Supine Assist Total Assistance,2 Person Assistance Scooting Scooting to Edge of Bed Maximum Assistance,2 Person Assistance Scooting Up and Down in Bed Total Assistance,2 Person Assistance OT-Transfer Assessment Comments Mobility Comments Pt not able to stay awake to assist much and total assist x2 for sit to supine and supine to sit. Pt needing total assist x3 to help scoot up the bed. At this time torey lift preferred for any transfers at this time for safety. OT- Balance Assessment Sitting Balance and Reactions Static Sitting Balance Ability Poor Comments Other Balance Tests/Deviations/Treatment Pt needing MOD - MAX AX 1 to : help maintain sitting balance. Pt too drowsy to be able to assist and therefore poor awareness of her lack of sitting balance at this time. M8 OT- IP Objective Assessments Start: 07/11/21 14:43 Freq: Status: Active Protocol: Document 07/11/21 13:54 [facility] (Rec: 07/11/21 15:10 [facility] [id number]) OT-Muscle Tone Assessment Muscle Tone WNL Yes M9 OT- IP Assessment and Plan Start: 07/11/21 14:43 Freq: Status: Active Protocol: Document 07/12/21 09:13 [facility] (Rec: 07/12/21 09:21 [facility] [id number]) OT Summary Assessment and Plan Potential Rehabilitation Potential Fair Analytic Complexity at Evaluation Moderate Summary OT Impairments Pain,Balance,Functional Cognition,Functional Mobility, Self-Feeding,Grooming,Dressing ,Toileting,Bathing,Toilet Transfers,Shower Transfers, Activity Tolerance Progress Towards Goals Slow Progress due to Pain,Slow Progress due to Medical Issues,Slow Progress due to Activity Tolerance,Slow Progress due to Cognition Assessment Summary Pt very drowsy but a little more alert and at least realizes that she is in the hospital and had back surgery. Pt not able to actively participate as so drowsy and needing total assist x2 for sit <>Supine. Torey lift suggested for her transfers at this time. Pt will benefit from skilled rehab when medically stable prior to going home. Goals Self-Feeding Goal Standby Assistance Grooming Goal Standby Assistance Dressing Goal Moderate Assistance Toileting Goal Minimal Assistance Bathing Goal Minimal Assistance Toilet Transfer Goal Standby Assistance Shower Transfer Goal Standby Assistance Patient/Caregiver Education Goal Demonstrate Post-Op Precautions Days to Meet Goals 30 Frequency of Treatment Frequency Of Treatment Once a Day Treatment Plan OT Treatment Plan ADL Training,Functional Cognition Training,Functional Mobility,Patient/Family Education,Discharge Planning Other Treatment Recommendations and Next To be able to sit at edge of Treatment Focus the bed with DESTINEE for balance and able to do her grooming needs. Discharge Recommendations OT Discharge Recommendations SNF Rehab Transportation Needs at Discharge Wheelchair/Cabulance
[2021-07-12] MEDS: SODIUM CHLORIDE 0.9% FLUSH 10 ML IV ×2 (09:11→20:40)
--- NOTE | 2021-07-12 09:11 | PT.IPTN ---
Current Diagnoses Other spondylosis with radiculopathy, lumbar region (07/10/21) Spinal stenosis, lumbar region with neurogenic claudication (07/10/21) Surgery Performed Operation Date: 07/10/21 13:45 Actual Procedures p L3-4 TLIF, L4-5 hemilaminectomy - Kb Valente MD Physical Therapy Treatment Note M2 PT-IP Current Condition Start: 07/11/21 13:10 Freq: NEEDED Status: Active Protocol: Document 07/11/21 10:05 [facility] (Rec: 07/11/21 13:21 [facility] [id number]) Physical Therapy Current Condition Current Condition Evaluation Date 07/11/21 Treatment Diagnosis s/p L3-4 TLIF; L4-5 hemilami; difficulty in walking Onset Date 07/10/21 M3 PT-IP Subjective Start: 07/11/21 13:10 Freq: NEEDED Status: Active Protocol: Document 07/12/21 08:52 [facility] (Rec: 07/12/21 12:09 [facility] [id number]) Subjective Physical Therapy Visit Type Type Treatment Note Visit Start Time 08:52 Visit Stop Time 09:11 Total Visit Minutes 19 Notes co-treat w/ OT Number of SEWING LINE BALER Visits 2 Physical Therapy Visit Comments Patient Comments agreeable to do PT but with confusion M4 PT-IP Mobility and Gait Start: 07/11/21 13:10 Freq: NEEDED Status: Active Protocol: Document 07/12/21 08:52 [facility] (Rec: 07/12/21 12:09 [facility] [id number]) PT-Bed Mobility Assessment Rolling Type of Rolling Log Rolling Level of Assist Maximal Assistance,2 Person Assistance Supine to Sit Supine to Sit Maximum Assistance,Total Assistance,2 Person Assistance Sit to Supine Sit to Supine Maximum Assistance,Total Assistance,2 Person Assistance Scooting Scooting to Edge of Bed Dependent PT-Transfer Assessment Comments Mobility Comments Pt in bed upon arrival and able to state she is in the hospital d/t her back. Agreeable to get into chair but still confused. Pt required Max A x2 for logroll and sup<>sit. Pt w/ diffculty focusing and keeping eyes open but responds to questions. Pt Max A for sitting balance and unsafe to stand due to poor trunk control and confusion. RT arrived and provided third person assist to scoot pt laterally in bed and then pt required Max A x2 for sit<>sup /logroll back into bed. RN aware. Pt left in bed w/ all needs in reach. Gait Assessment Comments Gait Comments Unable/unsafe PT-Balance Assessment Sitting Balance and Reactions Static Sitting Balance Ability Poor Dynamic Sitting Balance Ability Poor M5 PT-IP Objective Assessments Start: 07/11/21 13:10 Freq: NEEDED Status: Active Protocol: Document 07/11/21 10:05 [facility] (Rec: 07/11/21 13:21 AB [id number]) Orientation Orientation/Cognition Level of Alertness Confusional State Orientation Name Language Function Ability No Deficits Noted Safety Awareness Decreased Safety Awareness Memory Description Short Term Impaired Gross Range of Motion Lower Extremity ROM Assessment Within Functional Limits Strength Lower Extremity Strength Hip 3+/5 Knee 4-/5 Sensation Assessment Sensation Gross Sensation WNL Muscle Tone Muscle Tone WNL Yes M6 PT-IP Treatment Start: 07/11/21 13:10 Freq: NEEDED Status: Active Protocol: Document 07/12/21 08:52 [facility] (Rec: 07/12/21 12:09 [facility] [id number]) Physical Therapy Treatment Education Education Provided Safety M7 PT-IP Assessment and Plan Start: 07/11/21 13:10 Freq: NEEDED Status: Active Protocol: Document 07/12/21 08:52 [facility] (Rec: 07/12/21 12:09 [facility] [id number]) PT Summary Assessment and Plan Potential Rehabilitation Potential Fair Status of Condition at Evaluation Evolving Summary Impairments Pain,ROM,Strength,Balance, Coordination,Sensation,Tone, Cognition,Bed Mobility, Transfers,Gait,Activity Tolerance Assessment Summary Pt continues to be limited by confusion and fatigue. She required MAx A x2-3 for logroll and sup<>sit<>sup today. Unable and unsafe to stand due to assist level and confusion. Will progress as tolerated but at this time, pt will require SNF to improve strength and functional mobility. Goals Bed Mobility Goal Standby Assistance Transfer Goal Standby Assistance,Front Wheeled Walker Gait Goal Standby Assistance,Front Wheel Walker Gait Distance 150 Other Goals up/down 4 steps 1 rail SBA Days to Meet Goals 10 Frequency of Treatment Frequency Of Treatment Twice a Day Treatment Plan Physical Therapy Treatment Plan Bed Mobility Training,Transfer Training,Gait Training, Therapeutic Exercise,Balance Retraining,Post Op Education, Discharge Planning,Hot or Cold Pack,Neuromuscular Re-ed, Coordination Retraining,Manual Therapy Precautions Lumbar Precautions Log Roll,No Twisting,Limit Bending,Lifting Restriction of 10 lbs,Gait Belt above Incisional Area Recommendations To Nursing Amount of Assist Needed 2 Person Assist Discharge Recommendations PT Discharge Recommendations SNF Rehab Transportation Needs at Discharge Wheelchair/Cabulance
[2021-07-12 10:24] LABS: Add Manual Diff / Slide Review NO; Basophils Absolute Auto 100 /uL (0-100); Basophils Percent Auto 1.1 % (0-2); Eosinophils Absolute Auto 0 /uL (0-450); Eosinophils Percent Auto 0.1 % (2-4); Hematocrit 33.8 % (36-46); Lymphocytes Absolute Auto 2000 /uL (1100-4500); Lymphocytes Percent Auto 20.8 % (25-40); Mean Corpuscular HGB Conc 35.5 % (30-36); Mean Corpuscular Hemoglobin 33.3 PG (26-34); Mean Corpuscular Volume 93.9 fL (80-100); Monocytes Absolute Auto 900 /uL (0-900); Monocytes Percent Auto 8.9 % (3-14); Neutrophils Absolute Auto 6600 /uL (1500-7000); Neutrophils Percent Auto 69.1 % (50-75); Platelet Count 179 X10^3/uL (150-400); Red Blood Cell Count 3.59 X10^6/uL (4.0-5.2); Red Cell Distribution Width 12.9 % (11.6-14.8); White Blood Cell Count 9.6 X10^3/uL (4.5-11.0)
[2021-07-12 10:42] LABS: Alanine Aminotransferase 7 IU/L (<35); Albumin 3.2 g/dL (3.5-5.0); Albumin Globulin Ratio 1.2 (1.0-2.8); Alkaline Phosphatase 59 U/L (38-126); Aspartate Aminotransferase 37 IU/L (14-36); BUN Creatinine Ratio 20.8 (6-22); Blood Urea Nitrogen 16 mg/dL (7-17); Calcium 8.2 mg/dL (8.4-10.2); Carbon Dioxide 30 mmol/L (22-32); Chloride 100 mmol/L (98-107); Estimated Glomerular Filt Rate > 60 mL/min (>60); Globulin 2.7 g/dL (1.7-4.1); Glucose 138 mg/dL (80-110); HEMOLYSIS < 15 (0-50); Potassium 3.9 mmol/L (3.4-5.1); Sodium 131 mmol/L (137-145); Total Protein 5.9 g/dL (6.3-8.2)
--- NOTE | 2021-07-12 11:55 | P.PN_ITS ---
Subjective Subjective Date Patient Seen: 07/12/21 Time Patient Seen: 09:30 Interval history: Patient is sedated this morning. She is oriented to place. Exam Vital Signs (past 8 hours): - 07/12/21 04:43 07/12/21 08:06 Temperature 98.5 F 98.5 F Pulse Rate 70 71 Respiratory Rate 16 18 Blood Pressure 124/55 L 116/58 L Pulse Oximetry 92 92 Oxygen Delivery Method Room Air Oxygen Flow Rate 0 Narrative Exam Narrative: 80-year-old female resting in bed in no apparent distress. Patient woke up briefly and is aware she is in the hospital in [place] and then falls back to sleep. Patient will move her toes on command. Both legs are warm and dry. Resp Effort & Inspection: normal respiratory effort Objective Labs Result Diagrams: 07/12/21 10:07 07/12/21 10:07 Labs: Laboratory Results - last 24 hr 07/12/21 07/12/21 10:07 10:07 WBC 9.6 RBC 3.59 L Hgb 12.0 Hct 33.8 L MCV 93.9 MCH 33.3 MCHC 35.5 RDW 12.9 Plt Count 179 Neut % (Auto) 69.1 Lymph % (Auto) 20.8 L [place] % (Auto) 8.9 Eos % (Auto) 0.1 L Baso % (Auto) 1.1 Neut # (Auto) 6600 Lymph # (Auto) 2000 [place] # (Auto) 900 Eos # (Auto) 0 Baso # (Auto) 100 Sodium 131 L Potassium 3.9 Chloride 100 Carbon Dioxide 30 BUN 16 Creatinine 0.77 Estimated GFR > 60 BUN/Creatinine Ratio 20.8 Glucose 138 H Calcium 8.2 L Total Bilirubin 1.0 AST 37 H ALT 7 Alkaline Phosphatase 59 Total Protein 5.9 L Albumin 3.2 L Globulin 2.7 Albumin/Globulin Ratio 1.2 PFSH Medical History Arthritis Godfrey's esophagus CAD (coronary artery disease) Carotid artery disease CKD (chronic kidney disease) Depression Diabetes Gastric ulcer GERD (gastroesophageal reflux disease) HLD (hyperlipidemia) HTN (hypertension) Itch of skin Parkinson disease Poor balance Presence of device Tremor of both hands Surgical History History of arthroplasty of left knee (~2015) History of bladder surgery History of hysterectomy History of lumbar surgery Hx of bilateral cataract extraction Hx of breast reduction, elective Hx of cardiac cath (2011) Hx of fusion of cervical spine (09/27/19) Hx of hernia repair Hx of left breast biopsy Hx of toe surgery Hx of tonsillectomy Hx of unilateral oophorectomy Social History household members: children Smoking Status: Former smoker alcohol intake: former Assessment & Plan Post-op Postoperative Procedures: Procedures Operation Date: 07/10/21 13:45 Actual Procedure Side Surgeon p L3-4 TLIF, L4-5 hemilaminectomy Kb Valente MD Postoperative day: 2 Postoperative status narrative: Patient sedated this morning. The nurse also feels that she is more sedated compared to yesterday. Postoperative plan narrative: CBC, CMP ordered Spoke with hospitalist and they will consult on the patient. Appreciate their assistance. Multimodal pain management PT/OT, limit bending, twisting, lifting Disposition, to be determined
--- NOTE | 2021-07-12 13:00 | OT.IP.TRT ---
Current Diagnoses Other spondylosis with radiculopathy, lumbar region (07/10/21) Spinal stenosis, lumbar region with neurogenic claudication (07/10/21) Surgery Performed Operation Date: 07/10/21 13:45 Actual Procedures p L3-4 TLIF, L4-5 hemilaminectomy - Kb Valente MD Occupational Therapy Treatment Note M2 OT-IP Current Condition Start: 07/11/21 14:43 Freq: Status: Active Protocol: Document 07/11/21 13:54 [facility] (Rec: 07/11/21 15:10 [facility] [id number]) Occupational Therapy Current Condition Current Condition Evaluation Date 07/11/21 Treatment Diagnosis s/p L3-4, L4-5 TLIF Diagnosis Onset Date 07/10/21 Post Operative Precautions Lumbar Precautions Log Roll,No Twisting,Limit Bending,Lifting Restriction of 10 lbs,Gait Belt above Incisional Area M3 OT- IP Subjective and Pain Start: 07/11/21 14:43 Freq: Status: Active Protocol: Document 07/12/21 13:28 [facility] (Rec: 07/12/21 13:40 [facility] [id number]) OT- Subjective Occupational Therapy Visit Type Type Treatment Note Visit Start Time 13:00 Visit Stop Time 13:27 Total Visit Minutes 27 Occupational Therapy Visit Comments Patient Comments Pt still having trouble to keep her eyes open and staying alert. Pt agreed to try to get up. Pt seen a second time to assess mobility needs again with PT due to pt not able participate much this morning. Patient/Caregiver Goals TO go home. OT Pain Assessment Pain When Pain Assessed During Mobility Pain Present Pain Present Pain Reported Location Back Pain Behaviors Facial Grimacing,Moaning M4 OT- IP ADL's Start: 07/11/21 14:43 Freq: Status: Active Protocol: Document 07/12/21 13:28 [facility] (Rec: 07/12/21 13:40 [facility] [id number]) OT [id number] Comments OT Self-Feeding Comments Pt having difficulty to initiate movements and nursing aid to feed pt apple sauce. Pt needing assist to help bring water bottle up so that she can drink her water. OT ADL-Grooming General Evaluation Grooming Ability Total Assistance Comments OT Grooming Comments Pt not able to bring her hand up to her face when wash cloth placed in her hand at this time. OT ADL-Dressing General Eval Lower Body Dressing Ability Total Assistance Areas Needing Assistance Underpants/Brief,Socks OT ADL-Toileting General Evaluation Toileting Ability Total Assistance Areas Needing Assistance Manage Clothing,Perform Perineal Hygiene M5 OT- IP IADL's Start: 07/11/21 14:43 Freq: Status: Active Protocol: Document 07/11/21 13:54 [facility] (Rec: 07/11/21 15:10 [facility] [id number]) OT-Instrumental Activities of Daily Living Deficits IADL Deficits Identified Deficits Home Safety Awareness Awareness of Need for Assistance at Home Decreased Awareness Ability to Problem Solve Emergency Unable to Problem Solve Situations Home Safety Comments Pt very confused at this time and just orientated to her name. M6 OT- IP Functional Cognition Start: 07/11/21 14:43 Freq: Status: Active Protocol: Document 07/12/21 13:28 [facility] (Rec: 07/12/21 13:40 [facility] [id number]) Cognitive Factors Limiting Selfcare Function Cognitive Ability Level of Alertness Confusional State,Drowsy Patient Orientation Name Attention Span Ability Capable of Focused Attention, Unable to Sustain Attention Ability to Follow Commands Able to Follow One Step Commands with Increased Time, Able to Follow One Step Commands with Repetition Cognitive Comments Cognitive Assessment Comments Pt continues to be very drowsy and having difficulty to stay awake. Pt only alert at times. M7 OT- IP Mobility and Balance Start: 07/11/21 14:43 Freq: Status: Active Protocol: Document 07/12/21 13:28 [facility] (Rec: 07/12/21 13:40 [facility] [id number]) OT- Bed Mobility Assessment Rolling Type of Rolling Bilateral Level of Assistance Maximum Assistance,2 Person Assistance Supine to Sit Supine to Sit Assist Total Assistance,2 Person Assistance Sit to Supine Sit to Supine Assist Total Assistance,2 Person Assistance Scooting Scooting to Edge of Bed Total Assistance,2 Person Assistance OT-Transfer Assessment Comments Mobility Comments Pt able to sit at the edge of the bed with DESTINEE for a brief moment and then MOD to MAX A and not able to maintain trunk control and and also decreased awareness to be able to assist to stay upright. Total assist for sit to supine and supine to sit. Pt BP dropped while sitting and therefore assist back to supine. Nursing aware . OT- Balance Assessment Sitting Balance and Reactions Static Sitting Balance Ability Poor M8 OT- IP Objective Assessments Start: 07/11/21 14:43 Freq: Status: Active Protocol: Document 07/11/21 13:54 [facility] (Rec: 07/11/21 15:10 [facility] [id number]) OT-Muscle Tone Assessment Muscle Tone WNL Yes M9 OT- IP Assessment and Plan Start: 07/11/21 14:43 Freq: Status: Active Protocol: Document 07/12/21 13:28 [facility] (Rec: 07/12/21 13:40 [facility] [id number]) OT Summary Assessment and Plan Potential Rehabilitation Potential Fair Analytic Complexity at Evaluation Moderate Summary OT Impairments Pain,Balance,Functional Cognition,Functional Mobility, Self-Feeding,Grooming,Dressing ,Toileting,Bathing,Toilet Transfers,Shower Transfers, Activity Tolerance Progress Towards Goals Slow Progress due to Pain,Slow Progress due to Medical Issues,Slow Progress due to Activity Tolerance,Slow Progress due to Cognition Assessment Summary Went to see pt a second time today as pt so drowsy this AM. Pt still drowsy and not able to actively participate much and needing total assistx2 for bed mobility needs. Pt's nursing states pt has low sodium which may also be affected her level of alertness at this time. Continue to suggested skilled rehab when medically stable. Goals Self-Feeding Goal Standby Assistance Grooming Goal Standby Assistance Dressing Goal Moderate Assistance Toileting Goal Minimal Assistance Bathing Goal Minimal Assistance Toilet Transfer Goal Standby Assistance Shower Transfer Goal Standby Assistance Patient/Caregiver Education Goal Demonstrate Post-Op Precautions Days to Meet Goals 30 Frequency of Treatment Frequency Of Treatment Twice a Day Treatment Plan OT Treatment Plan ADL Training,Functional Cognition Training,Functional Mobility,Patient/Family Education,Discharge Planning Other Treatment Recommendations and Next To be able to sit at edge of Treatment Focus the bed with DESTINEE for balance and able to do her grooming needs. Discharge Recommendations OT Discharge Recommendations SNF Rehab Transportation Needs at Discharge Wheelchair/Cabulance,Stretcher /Ambulance
--- NOTE | 2021-07-12 13:00 | PT.IPTN ---
Current Diagnoses Other spondylosis with radiculopathy, lumbar region (07/10/21) Spinal stenosis, lumbar region with neurogenic claudication (07/10/21) Surgery Performed Operation Date: 07/10/21 13:45 Actual Procedures p L3-4 TLIF, L4-5 hemilaminectomy - Kb Valente MD Physical Therapy Treatment Note M2 PT-IP Current Condition Start: 07/11/21 13:10 Freq: NEEDED Status: Active Protocol: Document 07/11/21 10:05 AB (Rec: 07/11/21 13:21 AB [id number]) Physical Therapy Current Condition Current Condition Evaluation Date 07/11/21 Treatment Diagnosis s/p L3-4 TLIF; L4-5 hemilami; difficulty in walking Onset Date 07/10/21 M3 PT-IP Subjective Start: 07/11/21 13:10 Freq: NEEDED Status: Active Protocol: Document 07/12/21 13:00 AB (Rec: 07/12/21 13:40 AB [id number]) Subjective Physical Therapy Visit Type Type Treatment Note Visit Start Time 13:00 Visit Stop Time 13:25 Total Visit Minutes 25 Number of GAS MAKER Visits 0 Therapy Pain Assessment Pain When Pain Assessed During Mobility Pain Present Pain Present Pain Reported Location Back Scale Used pain scale not stated Pain Management Techniques Distraction,Modification of Treatment,Re-positioning, Timing of Activity with Medications M4 PT-IP Mobility and Gait Start: 07/11/21 13:10 Freq: NEEDED Status: Active Protocol: Document 07/12/21 13:00 AB (Rec: 07/12/21 13:40 AB [id number]) PT-Bed Mobility Assessment Rolling Type of Rolling Log Rolling Level of Assist Maximal Assistance,1 Person Assistance,2 Person Assistance Supine to Sit Supine to Sit Total Assistance,2 Person Assistance,Head of Bed Elevated,Bedrails Sit to Supine Sit to Supine Total Assistance,2 Person Assistance PT-Transfer Assessment Comments Mobility Comments BP supine: 135/67. O2 sat 92%. pt is sleepy and with confusion and requires frequent cues to keep her eyes open. Nurse in room as well and assisted pt with hygiene care and brief change. pt completed rolling L<>R max A x 1-2 and max cues and used bed rail. completed supine to sit log roll total A x 2 and max cues. pt requires max A for sitting balance with posterior trunk lean. cued and positioned in upright but pt unable to maintain. BP checked: 115/73. pt tolerated ~ 2-3 min of sitting. checked BP again: 103/58. assisted pt back to bed total A x 2 and max cues. total A x 2 for positioning. Left pt with OT and NAC. M5 PT-IP Objective Assessments Start: 07/11/21 13:10 Freq: NEEDED Status: Active Protocol: Document 07/11/21 10:05 AB (Rec: 07/11/21 13:21 AB [id number]) Orientation Orientation/Cognition Level of Alertness Confusional State Orientation Name Language Function Ability No Deficits Noted Safety Awareness Decreased Safety Awareness Memory Description Short Term Impaired Gross Range of Motion Lower Extremity ROM Assessment Within Functional Limits Strength Lower Extremity Strength Hip 3+/5 Knee 4-/5 Sensation Assessment Sensation Gross Sensation WNL Muscle Tone Muscle Tone WNL Yes M6 PT-IP Treatment Start: 07/11/21 13:10 Freq: NEEDED Status: Active Protocol: Document 07/12/21 13:00 [facility] (Rec: 07/12/21 13:40 [facility] Treatment Education Education Provided Safety M7 PT-IP Assessment and Plan Start: 07/11/21 13:10 Freq: NEEDED Status: Active Protocol: Document 07/12/21 13:00 [facility] (Rec: 07/12/21 13:40 [facility] PT Summary Assessment and Plan Potential Rehabilitation Potential Fair Summary Impairments Pain,ROM,Strength,Balance, Coordination,Sensation,Tone, Cognition,Bed Mobility, Transfers,Gait,Activity Tolerance Progress Towards Goals Slow Progress due to Pain,Slow Progress due to Medical Issues,Slow Progress due to Activity Tolerance Assessment Summary pt requiring total A x 2 with mobility and unable to participate much activity with decrease in BP from supine to sitting. pt will require SNF rehab to improve strength and mobility. Goals Bed Mobility Goal Standby Assistance Transfer Goal Standby Assistance,Front Wheeled Walker Gait Goal Standby Assistance,Front Wheel Walker Gait Distance 150 Other Goals up/down 4 steps 1 rail SBA Days to Meet Goals 10 Frequency of Treatment Frequency Of Treatment Twice a Day Treatment Plan Physical Therapy Treatment Plan Bed Mobility Training,Transfer Training,Gait Training, Therapeutic Exercise,Balance Retraining,Post Op Education, Discharge Planning,Hot or Cold Pack,Neuromuscular Re-ed, Coordination Retraining,Manual Therapy Precautions Lumbar Precautions Log Roll,No Twisting,Limit Bending,Lifting Restriction of 10 lbs,Gait Belt above Incisional Area Recommendations To Nursing Amount of Assist Needed Mechanical Lift Discharge Recommendations PT Discharge Recommendations SNF Rehab Transportation Needs at Discharge Wheelchair/Cabulance,Stretcher /Ambulance
[2021-07-12 16:03] VITALS: BP 133/58; PULSE 69; RESP 16; TEMP 36.8; O2SAT 93
[2021-07-12] MEDS: CARBIDOPA-LEVODOPA ER 50/200 TABLET 0.5 EACH PO (17:03)
--- NOTE | 2021-07-12 18:35 | PC.NURSE ---
Pt is AxOx1-2 and very sleepy and lethargic today. VSS, pt denied pain; pt has no appetite and drink minimal amt of water. Pt unable to work with PT. PT only have her sit up and back to lay down. Pt has no energy and only wants to sleep. Pt still has purewick and it is draining adequate amt of oscar color urine. CBC was done and Na-131 and MD is notified. Pt's dtr was here and spent short visit. Drs on her back is changed. Minimal dry, drainage. No other changes.
[2021-07-12 19:23] VITALS: BP 145/80; PULSE 70; RESP 17; TEMP 36.9; O2SAT 93
[2021-07-12] MEDS: ATORVASTATIN 20 MG TABLET 10 MG PO (20:36)
[2021-07-12] MEDS: SENNOSIDES 8.6 MG TABLET 17.2 MG PO (20:38)
--- NOTE | 2021-07-12 20:41 | PM.CN ---
History of Present Illness Consult details Date Patient Seen: 07/12/21 Chief complaint: Confusion Reason for consult: Confusion/lethargy post-op Narrative: 80-year-old female presently hospital day 2 and postoperative #2 L3-4 fusion and laminectomy due to chronic extremity a switch was worsening. Consult was requested today due to increasing confusion/lethargy. Patient reports that overall today was a difficult day for her. She states that she had more pain. Reports her legs both have a sharp pain radiating pain left-sided worse than the right. She states she has had poor sleep since admission but does admit to chronic insomnia. She denies any nausea, but states she has not had much intake any dinner and also reports that she has not had much fluid in today. She denies having had a Menjivar catheter in place but does presently have a PureWick in place. She denies any chest pain or shortness of breath. She denied abdominal pain. She states she does have some dysphagia related to her Parkinson's but has never had an aspiration pneumonia. She also reports she is not on any modified textures or liquids related to her dysphagia. Meds Home Medications and Allergies Home Medications Medication Instructions Recorded Confirmed Type citalopram 40 mg tablet 20 mg PO DAILY 09/19/19 07/10/21 History gabapentin 600 mg tablet 600 mg PO BID 09/19/19 07/10/21 History omeprazole 20 mg capsule,delayed 40 mg PO BID 09/19/19 07/10/21 History release ondansetron 8 mg disintegrating 8 mg PO Q8H PRN 09/19/19 07/10/21 History tablet potassium gluconate 595 mg (99 mg) 595 mg PO DAILY PRN 09/19/19 07/02/21 History tablet rosuvastatin 5 mg tablet 5 mg PO BEDTIME 09/19/19 07/10/21 History hydrocodone 5 mg-acetaminophen 325 1 tab PO Q4HR PRN #15 tab 09/28/19 07/10/21 Rx mg tablet acetaminophen 500 mg capsule 1,000 mg PO Q6H PRN 07/02/21 07/10/21 History carbidopa 25 mg-levodopa 100 mg 0.5 tab PO QID 07/02/21 07/10/21 History tablet carbidopa 25 mg-levodopa 100 mg 1 tab PO QAM 07/02/21 07/10/21 History tablet carbidopa ER 50 mg-levodopa 200 mg 0.5 tab PO QPM 07/02/21 07/10/21 History tablet,extended release cephalexin 500 mg capsule 500 mg PO DAILY 07/02/21 07/10/21 History entacapone 200 mg tablet 200 mg PO 5XD 07/02/21 07/10/21 History cetirizine 5 mg tablet 5 mg PO DAILY PRN 07/10/21 07/10/21 History Allergies Allergy/AdvReac Type Severity Reaction Status Date / Time adhesive [ADHESIVE] Allergy Severe RASH Verified 07/10/21 12:25 PAPER/SILK TAPE OK codeine [CODEINE] Allergy Severe I DON'T Verified 07/10/21 12:25 LIKE THE FEEL, I'M REALLY SENSITIVE TO IT silicone [SILICONE] Allergy Severe rash/erythe Verified 07/10/21 12:25 ma Sulfa (Sulfonamide Allergy Severe SWELLING Verified 07/10/21 12:25 Antibiotics) TOLD IF I [SULFA (SULFONAMIDE TAKE IT ANTIBIOTICS)] AGAIN, I'LL desmopressin AdvReac Severe Hallucinati Verified 07/10/21 12:25 ng hydroxyzine [From Vistaril] AdvReac Severe Hallucinations, Verified 07/10/21 12:25 confusion NSAIDS (Non-Steroidal AdvReac Mild NAUSEA, Verified 07/10/21 12:25 Anti-Inflamma confusion [NSAIDS (NON-STEROIDAL ANTI-INFLAMMA] Review of Systems Review of Systems Narrative: As noted, difficult to obtain history due to patient's confusion and fatigue Exam Vital Signs (past 8 hours): - 07/12/21 16:03 07/12/21 19:23 Temperature 98.3 F 98.5 F Pulse Rate 69 70 Respiratory Rate 16 17 Blood Pressure 133/58 L 145/80 H Pulse Oximetry 93 93 Oxygen Delivery Method Room Air Oxygen Flow Rate 0 Const General: well developed and lethargic [facility] Head: normal to inspection, normocephalic and atraumatic Ears: hearing grossly normal bilaterally and external ears normal Nose: external nose normal Mouth: lip normal and mucous membranes abnormal Throat: posterior oropharynx normal Other: Very dry mucous membranes Eyes General: appearance normal, both eyes and all related structures Alignment and Position: alignment normal Periorbital: periorbital findings normal Eyelids: eyelids normal Conjunctivae: conjunctivae normal Sclera: sclerae normal Pupils: PERRL EOM: EOM intact bilaterally Neck Neck: normal visual inspection and supple Thyroid: thyroid normal Carotids: normal carotid upstroke Resp Effort & Inspection: normal respiratory effort Auscultation: clear to auscultation bilaterally and diminished lung sounds Cardio Rate: regular rate Rhythm: regular rhythm Heart Sounds: S1 normal and S2 normal Other: No murmurs, rubs, gallops GI Inspection: normal to inspection and obesity Palpation: soft Auscultation: normal bowel sounds Other: Nontender, nondistended, body habitus does limit exam Other: Pure wick in place - urine is dark/oscar/reddish Skin General: no rashes or lesions noted Neuro Other: Drowsy, responds appropriately, oriented to self. Disoriented to date, month, year, location. Extrem General: normal to inspection and no clubbing, cyanosis or edema Psych Appearance: grossly normal Other: Unable to assess due to drowsiness Objective Labs Result Diagrams: 07/12/21 10:07 07/12/21 10:07 Labs: Laboratory Results - last 24 hr 07/12/21 07/12/21 10:07 10:07 WBC 9.6 RBC 3.59 L Hgb 12.0 Hct 33.8 L MCV 93.9 MCH 33.3 MCHC 35.5 RDW 12.9 Plt Count 179 Neut % (Auto) 69.1 Lymph % (Auto) 20.8 L [place] % (Auto) 8.9 Eos % (Auto) 0.1 L Baso % (Auto) 1.1 Neut # (Auto) 6600 Lymph # (Auto) 2000 [place] # (Auto) 900 Eos # (Auto) 0 Baso # (Auto) 100 Sodium 131 L Potassium 3.9 Chloride 100 Carbon Dioxide 30 BUN 16 Creatinine 0.77 Estimated GFR > 60 BUN/Creatinine Ratio 20.8 Glucose 138 H Calcium 8.2 L Total Bilirubin 1.0 AST 37 H ALT 7 Alkaline Phosphatase 59 Total Protein 5.9 L Albumin 3.2 L Globulin 2.7 Albumin/Globulin Ratio 1.2 PFSH Medical History Arthritis Godfrey's esophagus CAD (coronary artery disease) Carotid artery disease CKD (chronic kidney disease) Depression Diabetes Gastric ulcer GERD (gastroesophageal reflux disease) HLD (hyperlipidemia) HTN (hypertension) Itch of skin Parkinson disease Poor balance Presence of device Tremor of both hands Surgical History History of arthroplasty of left knee (~2015) History of bladder surgery History of hysterectomy History of lumbar surgery Hx of bilateral cataract extraction Hx of breast reduction, elective Hx of cardiac cath (2011) Hx of fusion of cervical spine (09/27/19) Hx of hernia repair Hx of left breast biopsy Hx of toe surgery Hx of tonsillectomy Hx of unilateral oophorectomy Family History (Updated 07/12/21 @ 20:47 by Denice Vela MD) Mother Cancer Comment: As the patient is quite sleepy, had difficulty getting additional medical/family/social history. Social History marital status: household members: children Tobacco & Substance Use Smoking Status: Former smoker alcohol intake: former Assessment & Plan Assessment & Plan narrative: 1. Acute Metabolic/toxic encephalopathy I suspect this is multifactorial, from medication, surgery with anesthesia, and mild dehydration. At this time, will discontinue gabapentin as it may be increasing her sedation. Will additionally hold other potentially sedating medications including opiates, Benadryl. Will obtain a urinalysis as her urine is notably dark, possible hematuria noted urinary collection system. Lungs are clear. She is afebrile. 2. Mild dehydration As noted, urine was dark and she has poor oral intake today. She had very dry mucous membranes. Will give LR at 100 cc/hour x2 L. 3. Parkinson's disease Patient has been on her which of Sinemet yesterday morning. This will be continued. She does have some history of dysphagia, but no previous aspiration or other complications. 4. Diabetes mellitus type 2 It appears she is diet controlled at baseline, as her home medications do not list any oral medications or insulin. She did tell me she takes insulin but as noted, is a poor historian. Blood sugars here have been in the 130s to 150s. 5. Hypertension Blood pressures are reasonably well controlled at this time. Medications do not show any antihypertensive therapy. Will monitor. 6. Obesity Current BMI is 30.9. This is actually improved from prior hospitalizations/surgery in 2019, at which time her BMI was 34. 7. Postoperative day 2 from lumbar spinal fusion/laminectomy Overall it appears she has been doing reasonably well from a surgical perspective. Defer postoperative plan of care to primary team. Time Spent With Patient Critical Care time: I spent a total of [] minutes of critical care time on this patient's care today; this time is exclusive of procedural time.
[2021-07-12] MEDS: ACETAMINOPHEN 325 MG TABLET 975 MG PO (21:21)
[2021-07-12] MEDS: LACTATED RINGERS 1,000 ML 100 ML IV (21:22)
[2021-07-12 23:06] LABS: Appearance Urine UA CLEAR; Bilirubin Urine UA NEGATIVE (NEGATIVE); Color Urine UA YELLOW; Glucose Urine UA TRACE g/dL (Negative); Ketones Urine UA 1+ (NEGATIVE); Leukocyte Esterase Urine UA NEGATIVE (NEGATIVE); Nitrite Urine UA NEGATIVE (Negative); Occult Blood Urine UA TRACE-LYSED (Negative); Protein Urine UA NEGATIVE (Negative); Urobilinogen Urine UA 0.2 E.U./dL (0.2)
[2021-07-12 23:07] VITALS: BP 136/70; PULSE 67; RESP 18; TEMP 36.6; O2SAT 93
[2021-07-12 23:17] LABS: Bacteria Urine None Seen; Culture Indicated Urine Cult Not Indicated; RBC Urine 0-1/HPF (0-5/HPF); WBC Urine None Seen (0-5/HPF)
--- NOTE | 2021-07-13 03:04 | PC.NURSE ---
Pt. more awake & less drowsy now. Denies any pain, repositioned to her left side. Will continue plan of care & monitor.
[2021-07-13] MEDS: ACETAMINOPHEN 325 MG TABLET 975 MG PO ×3 (04:58→21:16)
[2021-07-13] MEDS: ENTACAPONE 200 MG TABLET PO ×5 (04:59→21:17)
[2021-07-13 05:00] VITALS: BP 148/67; PULSE 65; RESP 17; TEMP 36.7; O2SAT 93
[2021-07-13] MEDS: LACTATED RINGERS 1,000 ML 100 ML IV (07:38)
[2021-07-13 08:58] VITALS: BP 133/58; PULSE 65; RESP 16; TEMP 37.1; O2SAT 95
[2021-07-13] MEDS: PANTOPRAZOLE DR 40 MG TABLET PO ×2 (09:17→21:17)
[2021-07-13] MEDS: DOCUSATE 100 MG CAPSULE PO ×2 (09:17→21:16)
[2021-07-13] MEDS: CARBIDOPA-LEVODOPA 25/100 TABLET 0.5 EACH PO ×4 (09:17→21:17)
[2021-07-13] MEDS: CITALOPRAM 10 MG TABLET 20 MG PO (09:17)
[2021-07-13] MEDS: GABAPENTIN 600 MG TABLET PO ×2 (09:17→21:16)
[2021-07-13] MEDS: CARBIDOPA-LEVODOPA 25/100 TABLET 1 EACH PO (09:18)
--- NOTE | 2021-07-13 09:55 | PM.PNPO.1 ---
Subjective Subjective Date Patient Seen: 07/13/21 Interval history: Patient denies pain. Patient is more alert this morning and is only able to recall that she is in the hospital because she had surgery. Exam Vital Signs (past 8 hours): - 07/13/21 05:00 07/13/21 08:58 Temperature 98.1 F 98.8 F Pulse Rate 65 65 Respiratory Rate 17 16 Blood Pressure 148/67 H 133/58 L Pulse Oximetry 93 95 Oxygen Delivery Method Room Air Oxygen Flow Rate 0 Narrative Exam Narrative: 72-year-old female resting comfortably in bed in no apparent distress. Moderate serosanguineous drainage on the dressing. Motor functions intact bilateral lower extremities. Sensation grossly intact to light touch bilateral lower extremities. Objective Labs Result Diagrams: 07/12/21 10:07 07/12/21 10:07 Labs: Laboratory Results - last 24 hr 07/12/21 07/12/21 07/12/21 10:07 10:07 22:55 WBC 9.6 RBC 3.59 L Hgb 12.0 Hct 33.8 L MCV 93.9 MCH 33.3 MCHC 35.5 RDW 12.9 Plt Count 179 Neut % (Auto) 69.1 Lymph % (Auto) 20.8 L [place] % (Auto) 8.9 Eos % (Auto) 0.1 L Baso % (Auto) 1.1 Neut # (Auto) 6600 Lymph # (Auto) 2000 [place] # (Auto) 900 Eos # (Auto) 0 Baso # (Auto) 100 Sodium 131 L Potassium 3.9 Chloride 100 Carbon Dioxide 30 BUN 16 Creatinine 0.77 Estimated GFR > 60 BUN/Creatinine Ratio 20.8 Glucose 138 H Calcium 8.2 L Total Bilirubin 1.0 AST 37 H ALT 7 Alkaline Phosphatase 59 Total Protein 5.9 L Albumin 3.2 L Globulin 2.7 Albumin/Globulin Ratio 1.2 Urine Color Yellow Urine Appearance Clear Urine pH 7.0 Ur Specific [place] 1.010 Urine Protein Negative Urine Glucose (UA) Trace H Urine Ketones 1+ H Urine Occult Blood Trace-lysed Urine Nitrate Negative Urine Bilirubin Negative Urine Urobilinogen 0.2 Ur Leukocyte Esterase Negative Urine RBC 0-1/hpf Urine WBC None seen Urine Bacteria None seen Ur Culture Indicated? Cult not indicated PFSH Medical History Arthritis Godfrey's esophagus CAD (coronary artery disease) Carotid artery disease CKD (chronic kidney disease) Depression Diabetes Gastric ulcer GERD (gastroesophageal reflux disease) HLD (hyperlipidemia) HTN (hypertension) Itch of skin Parkinson disease Poor balance Presence of device Tremor of both hands Surgical History History of arthroplasty of left knee (~2015) History of bladder surgery History of hysterectomy History of lumbar surgery Hx of bilateral cataract extraction Hx of breast reduction, elective Hx of cardiac cath (2011) Hx of fusion of cervical spine (09/27/19) Hx of hernia repair Hx of left breast biopsy Hx of toe surgery Hx of tonsillectomy Hx of unilateral oophorectomy Family History Mother Cancer Social History marital status: household members: children Smoking Status: Former smoker alcohol intake: former Assessment & Plan Post-op Postoperative Procedures: Procedures Operation Date: 07/10/21 13:45 Actual Procedure Side Surgeon p L3-4 TLIF, L4-5 hemilaminectomy Kb Valente MD Postoperative day: 3 Postoperative status narrative: Stable status post lumbar fusion Postoperative plan narrative: Mobilize with physical therapy, limit bending, lifting, twisting Multimodal pain management Hospitalist consult yesterday as patient was quite sedated. Hospitalist recommended discontinuing gabapentin and holding opiates and Benadryl. Appreciate hospitalist assistance in managing mild dehydration, Parkinson's disease, type 2 diabetes, hypertension.
--- NOTE | 2021-07-13 10:33 | PT.IPTN ---
Current Diagnoses Other spondylosis with radiculopathy, lumbar region (07/10/21) Spinal stenosis, lumbar region with neurogenic claudication (07/10/21) Surgery Performed Operation Date: 07/10/21 13:45 Actual Procedures p L3-4 TLIF, L4-5 hemilaminectomy - Kb Valente MD Physical Therapy Treatment Note M2 PT-IP Current Condition Start: 07/11/21 13:10 Freq: NEEDED Status: Active Protocol: Document 07/11/21 10:05 AB (Rec: 07/11/21 13:21 AB [id number]) Physical Therapy Current Condition Current Condition Evaluation Date 07/11/21 Treatment Diagnosis s/p L3-4 TLIF; L4-5 hemilami; difficulty in walking Onset Date 07/10/21 M3 PT-IP Subjective Start: 07/11/21 13:10 Freq: NEEDED Status: Active Protocol: Document 07/13/21 10:19 KS (Rec: 07/13/21 11:10 KS [id number]) Subjective Physical Therapy Visit Type Type Treatment Note Visit Start Time 10:19 Visit Stop Time 10:33 Total Visit Minutes 24 Notes co-treat w/ OT Number of BOOMSWING OPERATOR Visits 1 Physical Therapy Visit Comments Patient Comments agreeable to do PT but with slight confusion, improved from yesterday Therapy Pain Assessment Pain When Pain Assessed During Mobility Pain Present Pain Present Pain Reported M4 PT-IP Mobility and Gait Start: 07/11/21 13:10 Freq: NEEDED Status: Active Protocol: Document 07/13/21 10:19 KS (Rec: 07/13/21 11:10 KS [id number]) PT-Bed Mobility Assessment Rolling Type of Rolling Log Rolling Level of Assist Maximal Assistance,1 Person Assistance,2 Person Assistance Supine to Sit Supine to Sit Maximum Assistance,2 Person Assistance,Bedrails Scooting Scooting to Edge of Bed Moderate Assistance PT-Transfer Assessment Sit to and From Stand Sit to and from Stand Maximum Assistance,2 Person Assistance,Use of Upper Extremities Equipment Transfer Assistive Device Gait Belt,Front Wheeled Walker Orthotic/Prosthetic Devices or Brace: No Transfers Transfer Destination Bed Transfer Technique Stand Step Pivot Transfer Ability Level of Assist Maximum Assistance,2 Person Assistance,Use of Upper Extremities Comments Mobility Comments Pt in bed upon arrival, able to recall 1/3 precautions (no bending, no lifting). Max A x2 for logroll and max cues. Max A x2 for sup<>sit. Pt able to maintain seated balance CGA assist today and required Mod A to scoot EOB. Max A x2 for sit<>stand and stand step pivot to commode. After voiding, pt sit<>Stand Max A x2 max cues for upright posture, hips forward, knee extension, ad hand placement. She performed additional stand step pivot to chair and required Max A x2 for slow descent and held onto FWW inspite of cues to reach back for arm rests. Max A x2 for scooting back in chair. Pt left in chair w/ all needs in reach. Gait Assessment Gait Gait Assistance Required: Maximum Assistance,2 Person Assist Distance (Feet) 2 Assistive Devices Assistive Device Gait Belt,Front Wheeled Walker Factors Limiting Gait Function Factors Limiting Gait Function Decreased Activity Tolerance, Decreased Sensation,Decreased Strength,Difficulty Following Directions,Incoordination, Limited Range of Motion,Pain, Poor Balance,Poor Safety Awareness Comments Gait Comments SSP only PT-Balance Assessment Sitting Balance and Reactions Static Sitting Balance Ability Fair Dynamic Sitting Balance Ability Fair Standing Balance and Reactions Static Standing Balance Ability Poor Dynamic Standing Balance Ability Poor Device Used FWW M5 PT-IP Objective Assessments Start: 07/11/21 13:10 Freq: NEEDED Status: Active Protocol: Document 07/11/21 10:05 AB (Rec: 07/11/21 13:21 AB [id number]) Orientation Orientation/Cognition Level of Alertness Confusional State Orientation Name Language Function Ability No Deficits Noted Safety Awareness Decreased Safety Awareness Memory Description Short Term Impaired Gross Range of Motion Lower Extremity ROM Assessment Within Functional Limits Strength Lower Extremity Strength Hip 3+/5 Knee 4-/5 Sensation Assessment Sensation Gross Sensation WNL Muscle Tone Muscle Tone WNL Yes M6 PT-IP Treatment Start: 07/11/21 13:10 Freq: NEEDED Status: Active Protocol: Document 07/13/21 10:19 KS (Rec: 07/13/21 11:10 KS [id number]) Physical Therapy Treatment Education Education Provided Safety M7 PT-IP Assessment and Plan Start: 07/11/21 13:10 Freq: NEEDED Status: Active Protocol: Document 07/13/21 10:19 KS (Rec: 07/13/21 11:10 KS [id number]) PT Summary Assessment and Plan Potential Rehabilitation Potential Fair Summary Impairments Pain,ROM,Strength,Balance, Coordination,Sensation,Tone, Cognition,Bed Mobility, Transfers,Gait,Activity Tolerance Progress Towards Goals Slow Progress due to Pain,Slow Progress due to Medical Issues,Slow Progress due to Activity Tolerance Assessment Summary Pt w/ improved mentation today and able to complete 2 stand step pivot transfers, but ultimately still requiring Max A x2 for bed mobility and transfers w/ FWW and max cues for all tasks. Pt unsafe and unable to complete ambulation and will require SNF to improve strength and functional mobility. Goals Bed Mobility Goal Standby Assistance Transfer Goal Standby Assistance,Front Wheeled Walker Gait Goal Standby Assistance,Front Wheel Walker Gait Distance 150 Other Goals up/down 4 steps 1 rail SBA Days to Meet Goals 10 Frequency of Treatment Frequency Of Treatment Twice a Day Treatment Plan Physical Therapy Treatment Plan Bed Mobility Training,Transfer Training,Gait Training, Therapeutic Exercise,Balance Retraining,Post Op Education, Discharge Planning,Hot or Cold Pack,Neuromuscular Re-ed, Coordination Retraining,Manual Therapy Precautions Lumbar Precautions Log Roll,No Twisting,Limit Bending,Lifting Restriction of 10 lbs,Gait Belt above Incisional Area Recommendations To Nursing Amount of Assist Needed Mechanical Lift Discharge Recommendations PT Discharge Recommendations SNF Rehab Transportation Needs at Discharge Wheelchair/Cabulance,Stretcher /Ambulance
--- NOTE | 2021-07-13 13:10 | OT.IP.TRT ---
Current Diagnoses Other spondylosis with radiculopathy, lumbar region (07/10/21) Spinal stenosis, lumbar region with neurogenic claudication (07/10/21) Surgery Performed Operation Date: 07/10/21 13:45 Actual Procedures p L3-4 TLIF, L4-5 hemilaminectomy - Kb Valente MD Occupational Therapy Treatment Note M2 OT-IP Current Condition Start: 07/11/21 14:43 Freq: Status: Active Protocol: Document 07/11/21 13:54 [facility] (Rec: 07/11/21 15:10 [facility] [id number]) Occupational Therapy Current Condition Current Condition Evaluation Date 07/11/21 Treatment Diagnosis s/p L3-4, L4-5 TLIF Diagnosis Onset Date 07/10/21 Post Operative Precautions Lumbar Precautions Log Roll,No Twisting,Limit Bending,Lifting Restriction of 10 lbs,Gait Belt above Incisional Area M3 OT- IP Subjective and Pain Start: 07/11/21 14:43 Freq: Status: Active Protocol: Document 07/13/21 13:35 [facility] (Rec: 07/13/21 13:46 [facility] [id number]) OT- Subjective Occupational Therapy Visit Type Type Treatment Note Visit Start Time 09:12 Visit Stop Time 13:27 Total Visit Minutes 84 Notes Pt seen for split treatments [id number], [id number], and 1310- 1327 Occupational Therapy Visit Comments Patient Comments Pt at times alert however still very confused and having difficulty to follow commands . Patient/Caregiver Goals To go home. OT Pain Assessment Pain When Pain Assessed At Rest Pain Present Pain Present Denied Pain M4 OT- IP ADL's Start: 07/11/21 14:43 Freq: Status: Active Protocol: Document 07/13/21 13:35 [facility] (Rec: 07/13/21 13:46 [facility] [id number]) OT [id number] Comments OT Self-Feeding Comments Pt needing assist to feed her apple sauce today and having difficulty to lift her hands up at times. Pt tends to use her fingers to try to eat. OT ADL-Grooming Comments OT Grooming Comments Pt able to wash her face after set-up of wash cloth. OT ADL-Oral Care General Eval Oral Care Ability Standby Assistance Comments Oral Care Comments after set-up and MOD vc for completeness able to do while sitting up in the recliner OT ADL-Dressing General Eval Lower Body Dressing Ability Total Assistance Areas Needing Assistance Underpants/Brief,Socks OT ADL-Toileting General Evaluation Toileting Ability Total Assistance Areas Needing Assistance Manage Clothing,Perform Perineal Hygiene Comments OT Toileting Comments Pt incontinent. OT ADL-Bathing Bathing Type Bathing Type Sponge Bath General Evaluation Bathing Ability Maximal Assistance Areas Needing Assistance Wash/Dry Perineal Area,Wash/ Dry Lower Extremities M5 OT- IP IADL's Start: 07/11/21 14:43 Freq: Status: Active Protocol: Document 07/11/21 13:54 [facility] (Rec: 07/11/21 15:10 [facility] [id number]) OT-Instrumental Activities of Daily Living Deficits IADL Deficits Identified Deficits Home Safety Awareness Awareness of Need for Assistance at Home Decreased Awareness Ability to Problem Solve Emergency Unable to Problem Solve Situations Home Safety Comments Pt very confused at this time and just orientated to her name. M6 OT- IP Functional Cognition Start: 07/11/21 14:43 Freq: Status: Active Protocol: Document 07/13/21 13:35 [facility] (Rec: 07/13/21 13:46 [facility] [id number]) Cognitive Factors Limiting Selfcare Function Cognitive Ability Level of Alertness Confusional State,Drowsy Patient Orientation Name Attention Span Ability Capable of Focused Attention, Capable of Sustained Attention Ability to Follow Commands Able to Follow One Step Commands with Increased Time, Able to Follow One Step Commands with Repetition Memory Description Short Term Impaired,Working Impaired Safety Awareness Decreased Recall of Precautions,Decreased Ability to Apply Precautions, Underestimates Need for Assistance Cognitive Comments Cognitive Assessment Comments Pt not able to recall any back precautions and after multiple repetition able to recall 1/3 . Pt at times still does not realize that she has had back surgery. Pt also states wanting to go home to see her mom at one point and then after asking the pt if her mother was still alive realized her mistake. Pt states prior has difficulty with her memory. M7 OT- IP Mobility and Balance Start: 07/11/21 14:43 Freq: Status: Active Protocol: Document 07/13/21 13:35 [facility] (Rec: 07/13/21 13:46 [facility] [id number]) OT- Bed Mobility Assessment Rolling Type of Rolling Bilateral Level of Assistance Maximum Assistance,1 Person Assistance,2 Person Assistance Supine to Sit Supine to Sit Assist Total Assistance,2 Person Assistance Sit to Supine Sit to Supine Assist Total Assistance,2 Person Assistance Scooting Scooting to Edge of Bed Total Assistance,2 Person Assistance OT-Transfer Assessment Sit to and From Stand Sit to and from Stand Maximum Assistance,Total Assistance,2 Person Assistance Transfers Transfer Ability Maximum Assistance,Total Assistance,1 Person Assistance ,2 Person Assistance Technique Transfer Destination Bed,Bedside Commode,Chair Transfer Technique Stand Step Pivot Devices Transfer Assistive Devices Gait Belt,Front Wheeled Walker Comments Mobility Comments Pt today improved with sitting balance at ths edge of the bed with close SBA to CGA after set-up. MAX A/TOtal x 2- 3 for sit to stand and transfer to [facility] Pt very confused and having difficulty to follow commands. Transfer a second time to the [facility] pt needing more assist and deemed not safe and use of lila lift back from the BSC to bed. OT- Balance Assessment Sitting Balance and Reactions Static Sitting Balance Ability Fair Standing Balance and Reactions Static Standing Balance Ability Poor M8 OT- IP Objective Assessments Start: 07/11/21 14:43 Freq: Status: Active Protocol: Document 07/11/21 13:54 [facility] (Rec: 07/11/21 15:10 [facility] [id number]) OT-Muscle Tone Assessment Muscle Tone WNL Yes M9 OT- IP Assessment and Plan Start: 07/11/21 14:43 Freq: Status: Active Protocol: Document 07/13/21 13:35 [facility] (Rec: 07/13/21 13:46 [facility] [id number]) OT Summary Assessment and Plan Potential Rehabilitation Potential Fair Analytic Complexity at Evaluation Moderate Summary OT Impairments Pain,Balance,Functional Cognition,Functional Mobility, Self-Feeding,Grooming,Dressing ,Toileting,Bathing,Toilet Transfers,Shower Transfers, Activity Tolerance Progress Towards Goals Slow Progress due to Pain,Slow Progress due to Medical Issues,Slow Progress due to Activity Tolerance,Slow Progress due to Cognition Assessment Summary Pt still very confused and needing step by step commands to follow. Noted pt needing cues to be sure the food is out of her mouth, pills noted to migrate to the right side of her mouth and needing cues to clear her mouth. Pt will need skilled rehab prior to going home when medically stable. Goals Self-Feeding Goal Standby Assistance Grooming Goal Standby Assistance Dressing Goal Moderate Assistance Toileting Goal Minimal Assistance Bathing Goal Minimal Assistance Toilet Transfer Goal Standby Assistance Shower Transfer Goal Standby Assistance Patient/Caregiver Education Goal Demonstrate Post-Op Precautions Days to Meet Goals 40 Frequency of Treatment Frequency Of Treatment Once a Day Treatment Plan OT Treatment Plan ADL Training,Functional Cognition Training,Functional Mobility,Patient/Family Education,Discharge Planning Discharge Recommendations OT Discharge Recommendations SNF Rehab Transportation Needs at Discharge Wheelchair/Cabulance
--- NOTE | 2021-07-13 13:27 | PT.IPTN ---
Current Diagnoses Other spondylosis with radiculopathy, lumbar region (07/10/21) Spinal stenosis, lumbar region with neurogenic claudication (07/10/21) Surgery Performed Operation Date: 07/10/21 13:45 Actual Procedures p L3-4 TLIF, L4-5 hemilaminectomy - Kb Valente MD Physical Therapy Treatment Note M2 PT-IP Current Condition Start: 07/11/21 13:10 Freq: NEEDED Status: Active Protocol: Document 07/11/21 10:05 AB (Rec: 07/11/21 13:21 AB [id number]) Physical Therapy Current Condition Current Condition Evaluation Date 07/11/21 Treatment Diagnosis s/p L3-4 TLIF; L4-5 hemilami; difficulty in walking Onset Date 07/10/21 M3 PT-IP Subjective Start: 07/11/21 13:10 Freq: NEEDED Status: Active Protocol: Document 07/13/21 13:03 KS (Rec: 07/13/21 13:57 KS [id number]) Subjective Physical Therapy Visit Type Type Treatment Note Visit Start Time 13:03 Visit Stop Time 13:27 Total Visit Minutes 24 Number of STRAP MACHINE OPERATOR AUTOMATIC Visits 2 Physical Therapy Visit Comments Patient Comments agreeable to do PT but with slight confusion, improved from yesterday M4 PT-IP Mobility and Gait Start: 07/11/21 13:10 Freq: NEEDED Status: Active Protocol: Document 07/13/21 13:03 KS (Rec: 07/13/21 13:57 KS [id number]) PT-Bed Mobility Assessment Rolling Type of Rolling Log Rolling,Bilateral Level of Assist Maximal Assistance,1 Person Assistance,2 Person Assistance Scooting Scooting to Edge of Bed Maximum Assistance PT-Transfer Assessment Sit to and From Stand Sit to and from Stand Maximum Assistance,2 Person Assistance,Use of Upper Extremities Equipment Transfer Assistive Device Gait Belt,Front Wheeled Walker Orthotic/Prosthetic Devices or Brace: No Transfers Transfer Destination Bedside Commode Transfer Technique Stand Step Pivot Transfer Ability Level of Assist Maximum Assistance,2 Person Assistance,Use of Upper Extremities Comments Mobility Comments Pt in chair upon arrival and requesting to use BSC. Max A x2 and max cues for scooting EOC, Max A x2 for sit<>Stand w / FWW and stand step pivot to BSC, Max A x2 for slow descent onto BSC. Pt remains confused and unsafe this PM to perform additional SSP to bed. Used lila to lift pt back into bed . Max A x2 for logroll side to side for brief change. Pt left in bed w/ all needs in reach. Gait Assessment Gait Gait Assistance Required: Maximum Assistance,2 Person Assist Distance (Feet) 2 Assistive Devices Assistive Device Gait Belt,Front Wheeled Walker Factors Limiting Gait Function Factors Limiting Gait Function Decreased Activity Tolerance, Decreased Sensation,Decreased Strength,Difficulty Following Directions,Incoordination, Limited Range of Motion,Pain, Poor Balance,Poor Safety Awareness Comments Gait Comments SSP only PT-Balance Assessment Sitting Balance and Reactions Static Sitting Balance Ability Poor Dynamic Sitting Balance Ability Poor Standing Balance and Reactions Static Standing Balance Ability Poor Dynamic Standing Balance Ability Poor Device Used FWW M5 PT-IP Objective Assessments Start: 07/11/21 13:10 Freq: NEEDED Status: Active Protocol: Document 07/11/21 10:05 AB (Rec: 07/11/21 13:21 AB [id number]) Orientation Orientation/Cognition Level of Alertness Confusional State Orientation Name Language Function Ability No Deficits Noted Safety Awareness Decreased Safety Awareness Memory Description Short Term Impaired Gross Range of Motion Lower Extremity ROM Assessment Within Functional Limits Strength Lower Extremity Strength Hip 3+/5 Knee 4-/5 Sensation Assessment Sensation Gross Sensation WNL Muscle Tone Muscle Tone WNL Yes M6 PT-IP Treatment Start: 07/11/21 13:10 Freq: NEEDED Status: Active Protocol: Document 07/13/21 13:03 KS (Rec: 07/13/21 13:57 KS [id number]) Physical Therapy Treatment Education Education Provided Safety Other Treatments Other Treatment Performed Reviewed precautions, pt intermittently remembers different precautions but not all at the same time. M7 PT-IP Assessment and Plan Start: 07/11/21 13:10 Freq: NEEDED Status: Active Protocol: Document 07/13/21 13:03 KS (Rec: 07/13/21 13:57 KS [id number]) PT Summary Assessment and Plan Potential Rehabilitation Potential Fair Summary Impairments Pain,ROM,Strength,Balance, Coordination,Sensation,Tone, Cognition,Bed Mobility, Transfers,Gait,Activity Tolerance Progress Towards Goals Slow Progress due to Pain,Slow Progress due to Medical Issues,Slow Progress due to Activity Tolerance Assessment Summary Pt continues to requires Max A x2 and max cues for all tasks . Able to SSP to BSC, but unsafe to perform SSP back to bed and had to lila pt into bed. Pt remains confused and unable to recall all spinal precautions. She will require SNF to improve functional mobility. Goals Bed Mobility Goal Standby Assistance Transfer Goal Standby Assistance,Front Wheeled Walker Gait Goal Standby Assistance,Front Wheel Walker Gait Distance 150 Other Goals up/down 4 steps 1 rail SBA Days to Meet Goals 10 Frequency of Treatment Frequency Of Treatment Twice a Day Treatment Plan Physical Therapy Treatment Plan Bed Mobility Training,Transfer Training,Gait Training, Therapeutic Exercise,Balance Retraining,Post Op Education, Discharge Planning,Hot or Cold Pack,Neuromuscular Re-ed, Coordination Retraining,Manual Therapy Precautions Lumbar Precautions Log Roll,No Twisting,Limit Bending,Lifting Restriction of 10 lbs,Gait Belt above Incisional Area Recommendations To Nursing Amount of Assist Needed Mechanical Lift Discharge Recommendations PT Discharge Recommendations SNF Rehab Transportation Needs at Discharge Wheelchair/Cabulance,Stretcher /Ambulance
[2021-07-13 14:07] VITALS: BP 137/59; PULSE 68; RESP 16; TEMP 36.2; O2SAT 97
--- NOTE | 2021-07-13 15:30 | CM.DPC ---
DCP: DCP called sister, Radha, to inform her of [facility] accepting patient for tomorrow at a SNF. Radha wondering about their rehab program. DCP provided information to the best of her ability. Radha wants DCP to update daughter. DCP went to pt room to look for daughter, pt and PROFESSOR OF ART verbalized that daughter is on the way. DCP to try and catch daughter before she leaves for the day. P: [facility] discharge tomorrow. Starla Humphries RN/DCP
--- NOTE | 2021-07-13 16:56 | PM.PN.1 ---
Subjective Subjective Date Patient Seen: 07/13/21 Interval history: Patient is postop day 3 lumbar fusion. She is alert and less confused with stopping sedating medications. She denies any significant postop pain. Exam Vital Signs (past 8 hours): - 07/13/21 08:58 07/13/21 14:07 Temperature 98.8 F 97.2 F L Pulse Rate 65 68 Respiratory Rate 16 16 Blood Pressure 133/58 L 137/59 L Pulse Oximetry 95 97 Oxygen Delivery Method Room Air Oxygen Flow Rate 0 Narrative Exam Narrative: General: Alert NAD, eating breakfast Lungs: Clear Heart: Regular rhythm Extremities: No edema Neurological affect normal, oriented to person and place Objective Labs Result Diagrams: 07/12/21 10:07 07/12/21 10:07 Labs: Laboratory Results - last 24 hr 07/12/21 22:55 Urine Color Yellow Urine Appearance Clear Urine pH 7.0 Ur Specific [place] 1.010 Urine Protein Negative Urine Glucose (UA) Trace H Urine Ketones 1+ H Urine Occult Blood Trace-lysed Urine Nitrate Negative Urine Bilirubin Negative Urine Urobilinogen 0.2 Ur Leukocyte Esterase Negative Urine RBC 0-1/hpf Urine WBC None seen Urine Bacteria None seen Ur Culture Indicated? Cult not indicated PFSH Medical History Arthritis Godfrey's esophagus CAD (coronary artery disease) Carotid artery disease CKD (chronic kidney disease) Depression Diabetes Gastric ulcer GERD (gastroesophageal reflux disease) HLD (hyperlipidemia) HTN (hypertension) Itch of skin Parkinson disease Poor balance Presence of device Tremor of both hands Surgical History History of arthroplasty of left knee (~2015) History of bladder surgery History of hysterectomy History of lumbar surgery Hx of bilateral cataract extraction Hx of breast reduction, elective Hx of cardiac cath (2011) Hx of fusion of cervical spine (09/27/19) Hx of hernia repair Hx of left breast biopsy Hx of toe surgery Hx of tonsillectomy Hx of unilateral oophorectomy Family History Mother Cancer Social History marital status: household members: children Smoking Status: Former smoker alcohol intake: former Assessment & Plan Assessment & Plan narrative: 1. Acute metabolic/toxic encephalopathy -resolving with stopping her sedating and anticholinergic medications. -restarted gabapentin since this was a chronic home medication -seems to be doing well with just Tylenol for postop pain -completed 2 L LR -appears stable for SNF discharge Thursday 2. Parkinson's disease -appears stable on her Sinemet 3. Type 2 diabetes diet controlled 4. Postop lumbar fusion Time Spent With Patient Critical Care time: I spent a total of [] minutes of critical care time on this patient's care today; this time is exclusive of procedural time.
[2021-07-13] MEDS: CARBIDOPA-LEVODOPA ER 50/200 TABLET 0.5 EACH PO (18:42)
[2021-07-13 19:33] VITALS: BP 142/63; PULSE 62; RESP 17; TEMP 36.8; O2SAT 98
[2021-07-13] MEDS: ATORVASTATIN 20 MG TABLET 10 MG PO (21:17)
[2021-07-13] MEDS: SENNOSIDES 8.6 MG TABLET 17.2 MG PO (21:17)
[2021-07-13 23:14] VITALS: BP 138/54; PULSE 65; RESP 18; TEMP 36.3; O2SAT 95
[2021-07-14] MEDS: ACETAMINOPHEN 325 MG TABLET 975 MG PO ×2 (04:45→11:47)
[2021-07-14 04:53] VITALS: BP 144/69; PULSE 59; RESP 16; TEMP 36.2; O2SAT 95
[2021-07-14 07:00] VITALS: BP 131/68; PULSE 57; RESP 14; TEMP 35.8; O2SAT 95
[2021-07-14] MEDS: ENTACAPONE 200 MG TABLET PO (09:23)
[2021-07-14] MEDS: DOCUSATE 100 MG CAPSULE PO (09:24)
[2021-07-14] MEDS: GABAPENTIN 600 MG TABLET PO (09:24)
[2021-07-14] MEDS: CITALOPRAM 10 MG TABLET 20 MG PO (09:24)
[2021-07-14] MEDS: PANTOPRAZOLE DR 40 MG TABLET PO (09:24)
[2021-07-14] MEDS: CARBIDOPA-LEVODOPA 25/100 TABLET 0.5 EACH PO ×2 (09:26→11:48)
[2021-07-14] MEDS: CARBIDOPA-LEVODOPA 25/100 TABLET 1 EACH PO (09:27)
--- NOTE | 2021-07-14 09:34 | PM.DS.1 ---
History of Present Illness History of Present Illness Date Patient Seen: 07/14/21 Time Patient Seen: 09:34 Chief complaint: Confusion Narrative: The history and physical is contained in the chart previously completed note. Please refer to that note for this information. Discharge Providers Provider Date of admission: 07/10/21 12:05 Discharge Date: 07/14/21 Primary care physician: Brian Ramires MD Consults: 07/10/21 18:25 Consult to Occupational Therapy Evaluate & Treat Comment: Physician Instructions: Evaluate and treat Consult to Physical Therapy Evaluate & Treat Comment: Physician Instructions: Evaluate and Treat 07/13/21 16:08 Consult to Dietitian, Adult Routine Comment: Reason For Exam: merlyn score Discharge provider: Tesfaye Beatty MD Summary Hospital Course Discharge Diagnosis: 1. Lumbar spinal stenosis with neurogenic claudication 2. Post hemorrhagic anemia 3. Postoperative delirium 4. Parkinson's disease 5. Type 2 diabetes mellitus controlled by diet Hospital Course: Patient was admitted to the hospital and taken directly to the operating room on July 10 2021. She underwent an L 3-4 and L4-5 decompression and fusion. She had a mild post hemorrhagic anemia afterwards. Her postoperative course was marked by confusion and delirium which cleared after stopping some of her more sedating medications. A hospitalist consultation was obtained to assist with this. On postoperative day 4 she was oriented and ready for discharge to custodial. halfway is required due to inability to mobilize to the point of being safe for discharge home. Status at Discharge Cognitive/behavioral status at discharge: oriented Functional status at discharge: uses cane/walker Overall status at discharge: patient is progressing back to baseline Time Spent with Patient Time spent: Less than 30 minutes Exam Vital Signs (past 8 hours): - 07/14/21 04:53 07/14/21 07:00 Temperature 97.1 F L 96.5 F L Pulse Rate 59 L 57 L Respiratory Rate 16 14 Blood Pressure 144/69 H 131/68 Pulse Oximetry 95 95 Oxygen Delivery Method Room Air Oxygen Flow Rate 0 Narrative Exam Narrative: The patient is resting comfortably in bed. Calves are soft. Light touch and motion are intact in both lower extremities. Objective Labs Result Diagrams: 07/12/21 10:07 07/12/21 10:07 [facility] Medical History Arthritis Godfrey's esophagus CAD (coronary artery disease) Carotid artery disease CKD (chronic kidney disease) Depression Diabetes Gastric ulcer GERD (gastroesophageal reflux disease) HLD (hyperlipidemia) HTN (hypertension) Itch of skin Parkinson disease Poor balance Presence of device Tremor of both hands Surgical History History of arthroplasty of left knee (~2015) History of bladder surgery History of hysterectomy History of lumbar surgery Hx of bilateral cataract extraction Hx of breast reduction, elective Hx of cardiac cath (2011) Hx of fusion of cervical spine (09/27/19) Hx of hernia repair Hx of left breast biopsy Hx of toe surgery Hx of tonsillectomy Hx of unilateral oophorectomy Family History Mother Cancer Social History marital status: household members: children Smoking Status: Former smoker alcohol intake: former Discharge Assessment & Plan Assessment and Plan Assessment: Stable postoperative day 4 status post lumbar decompression and fusion complicated by post hemorrhagic anemia and postoperative delirium. She is now oriented at her baseline and ready for discharge to custodial. She has not been able to make enough progress with physical therapy to be safe on her own at home. Plan of Treatment: Discharge to custodial. Follow up with Dr. Valente as planned. Discharge prescriptions have been written. Discharge Plan Discharge Plan Patient Disposition: SNF Transfer to: [facility] Discharge orders & Medications Prescriptions: New tramadol 50 mg Tablet 50 mg PO Q4HR PRN (Reason: Pain, Moderate (4-6)) Qty: 40 0RF Continued gabapentin 600 mg Tablet 600 mg PO BID 0RF citalopram 40 mg Tablet 20 mg PO DAILY 0RF ondansetron 8 mg Tablet,Disintegrating 8 mg PO Q8H PRN (Reason: Nausea) 0RF omeprazole 20 mg Capsule,Delayed Release(Dr/Ec) 40 mg PO BID 0RF rosuvastatin 5 mg Tablet 5 mg PO BEDTIME 0RF carbidopa-levodopa 50-200 mg Tablet Extended Release 0.5 tab PO QPM 0RF Label Comments: Takes 1830 entacapone 200 mg Tablet 200 mg PO 5XD 0RF Rx Instructions: administer at the same time as l-dopa/carbidopa dose cephalexin 500 mg Capsule 500 mg PO DAILY 0RF carbidopa-levodopa 25-100 mg Tablet 1 tab PO QAM 0RF Label Comments: Takes 1 tab at 0930 carbidopa-levodopa 25-100 mg Tablet 0.5 tab PO QID 0RF Label Comments: takes at 1130, 1330, 1530, 1830 acetaminophen 500 mg Capsule 1,000 mg PO Q6H PRN (Reason: Pain) 0RF cetirizine 5 mg Tablet 5 mg PO DAILY PRN (Reason: Itching) 0RF Discontinued potassium gluconate 595 mg (99 mg) Tablet 595 mg PO DAILY PRN (Reason: Leg cramps) 0RF hydrocodone-acetaminophen 5-325 mg Tablet 1 tab PO Q4HR PRN (Reason: Pain, Moderate (4-6)) Qty: 15 0RF Medication counseling provided by Pharmacist: No Follow up/Referrals: Kb Valente MD [Physician] - 2 Weeks Tesfaye Beatty MD [Physician] - Brian Ramires MD [Primary Care Provider] - Discharge Health Status Multidrug resistant organism: No MDRO Precautions: [place] Diet/Activity/Treatments Diet: Diet as Tolerated and Carb-consistent/Diabetic Liquid consistency: Normal/Thin Food texture: Regular Activity: Ambulate as tolerated. Cold/Heat Therapy: Ice may be applied to the surgical site for 15 minutes every hour as needed for pain control. Skin/Wound/Dressing Care Dressing: Keep the dressing clean and dry. Special Rehabilitation Services Reason for rehabilitation: Post-operative therapy Rehab type: Physical therapy Visit Report/Discharge Packet Instructions: DI for Prescription Opioid Use, DI for Transforaminal Lumbar Interbody Fusion Stand Alone Forms: Surgery Discharge Discharge Data Primary Care Provider: Brian Ramires
[2021-07-14 10:02] LABS: COVID19 -Nasal RAPID Negative (Negative)
[2021-07-14 11:00] VITALS: BP 147/59; PULSE 59; RESP 16; TEMP 36.8; O2SAT 97
--- NOTE | 2021-07-14 11:00 | PT.IPTN ---
Current Diagnoses Other spondylosis with radiculopathy, lumbar region (07/10/21) Spinal stenosis, lumbar region with neurogenic claudication (07/10/21) Surgery Performed Operation Date: 07/10/21 13:45 Actual Procedures p L3-4 TLIF, L4-5 hemilaminectomy - Kb Valente MD Physical Therapy Treatment Note M2 PT-IP Current Condition Start: 07/11/21 13:10 Freq: NEEDED Status: Active Protocol: Document 07/11/21 10:05 AB (Rec: 07/11/21 13:21 AB [id number]) Physical Therapy Current Condition Current Condition Evaluation Date 07/11/21 Treatment Diagnosis s/p L3-4 TLIF; L4-5 hemilami; difficulty in walking Onset Date 07/10/21 M3 PT-IP Subjective Start: 07/11/21 13:10 Freq: NEEDED Status: Active Protocol: Document 07/14/21 11:00 AW (Rec: 07/14/21 11:09 AW [id number]) Subjective Physical Therapy Visit Type Type Treatment Note Visit Start Time 10:37 Visit Stop Time 10:53 Total Visit Minutes 16 Number of CHANGE BOOTH ATTENDANT Visits 0 Physical Therapy Visit Comments Patient Comments Pt is oriented to self, place, situation. She is willing to participate with PT as long as I get some warm blankets afterward. Therapy Pain Assessment Pain When Pain Assessed At Rest Pain Present Pain Present Denied Pain M4 PT-IP Mobility and Gait Start: 07/11/21 13:10 Freq: NEEDED Status: Active Protocol: Document 07/14/21 11:00 AW (Rec: 07/14/21 11:09 AW [id number]) PT-Bed Mobility Assessment Rolling Type of Rolling Bilateral Level of Assist Minimal Assistance,1 Person Assistance Supine to Sit Supine to Sit Maximum Assistance,1 Person Assistance,Bedrails Scooting Scooting to Edge of Bed Moderate Assistance PT-Transfer Assessment Sit to and From Stand Sit to and from Stand Maximum Assistance,1 Person Assistance,2 Person Assistance Equipment Transfer Assistive Device Gait Belt,Front Wheeled Walker Orthotic/Prosthetic Devices or Brace: No Transfers Transfer Destination Chair Transfer Technique Stand Step Pivot Transfer Ability Level of Assist Maximum Assistance,1 Person Assistance,2 Person Assistance ,Use of Upper Extremities Comments Mobility Comments Pt was lying in bed as PT arrived. She initiated log roll to her left side but ultimately needed min A to achieve sidelying position. Mod A for SL to sit transition . Pt stood from the bed max A x 1 but used her legs to stabilize against the bed in standing. She did respond to cues for tall stance long enough to initiate weight shifting and turning the walker to transfer to the chair set up on her right side . Max A and max cues to complete the transfer as pt was impulsive and began to sit before she was in position in front of the chair, needing assist for safe descent. Pt agreed to attempt standing again. Max A to stand with minimal hip extension and pt was unable to maintain standing > 3 seconds due to BLE weakness. Max A for controlled descent to the chair. Pt was left with call light, tray table, and warm blankets. Notified DRIVER GUIDE that pt may need chair alarm. Gait Assessment Comments Gait Comments Transfer only. Pt unsafe for ambulation. PT-Balance Assessment Sitting Balance and Reactions Static Sitting Balance Ability Fair Dynamic Sitting Balance Ability Poor Standing Balance and Reactions Static Standing Balance Ability Poor Dynamic Standing Balance Ability Poor Device Used FWW M5 PT-IP Objective Assessments Start: 07/11/21 13:10 Freq: NEEDED Status: Active Protocol: Document 07/11/21 10:05 AB (Rec: 07/11/21 13:21 AB [id number]) Orientation Orientation/Cognition Level of Alertness Confusional State Orientation Name Language Function Ability No Deficits Noted Safety Awareness Decreased Safety Awareness Memory Description Short Term Impaired Gross Range of Motion Lower Extremity ROM Assessment Within Functional Limits Strength Lower Extremity Strength Hip 3+/5 Knee 4-/5 Sensation Assessment Sensation Gross Sensation WNL Muscle Tone Muscle Tone WNL Yes M6 PT-IP Treatment Start: 07/11/21 13:10 Freq: NEEDED Status: Active Protocol: Document 07/14/21 11:00 AW (Rec: 07/14/21 11:09 AW [id number]) Physical Therapy Treatment Education Education Provided Precautions,Safety Other Treatments Other Treatment Performed Reviewed precautions, pt intermittently remembers different precautions but not all at the same time. M7 PT-IP Assessment and Plan Start: 07/11/21 13:10 Freq: NEEDED Status: Active Protocol: Document 07/14/21 11:00 AW (Rec: 07/14/21 11:09 AW [id number]) PT Summary Assessment and Plan Potential Rehabilitation Potential Fair Status of Condition at Evaluation Evolving Summary Impairments Pain,ROM,Strength,Balance, Coordination,Sensation,Tone, Cognition,Bed Mobility, Transfers,Gait,Activity Tolerance Progress Towards Goals Slow Progress due to Pain,Slow Progress due to Medical Issues,Slow Progress due to Activity Tolerance Assessment Summary Max A x 1-2 required for transfers with FWW. Pt was able to manage one transfer but was unsafe for further activity. Recommend lila transfer back to bed or to w/c for transport to SNF. Goals Bed Mobility Goal Standby Assistance Transfer Goal Standby Assistance,Front Wheeled Walker Gait Goal Standby Assistance,Front Wheel Walker Gait Distance 150 Other Goals up/down 4 steps 1 rail SBA Days to Meet Goals 10 Frequency of Treatment Frequency Of Treatment Twice a Day Treatment Plan Physical Therapy Treatment Plan Bed Mobility Training,Transfer Training,Gait Training, Therapeutic Exercise,Balance Retraining,Post Op Education, Discharge Planning,Hot or Cold Pack,Neuromuscular Re-ed, Coordination Retraining,Manual Therapy Precautions Lumbar Precautions Log Roll,No Twisting,Limit Bending,Lifting Restriction of 10 lbs,Gait Belt above Incisional Area Recommendations To Nursing Amount of Assist Needed Mechanical Lift Discharge Recommendations PT Discharge Recommendations SNF Rehab Transportation Needs at Discharge Wheelchair/Cabulance,Stretcher /Ambulance
--- NOTE | 2021-07-14 12:23 | PC.NURSE ---
discharged to [facility] per transporter.
--- NOTE | 2021-07-14 14:58 | CM.DPC ---
DCP/continued: Received verbal referral from provider that patient medically stable for d/c today. Current plan is for patient to go to [facility] when stable. Placed call to July at [facility] and she reports that they can accept and pickle pumper at noon. Updated COVID test initiated as requested by [facility]. SCRAP CRANE OPERATOR met with patient, called daughter, and spoke with sister re: plan. All aware and agreeble. No additional needs identified. RN given number to call report and copy of YESENIA provided. P: Apoorva today. KEV
--- NOTE | 2021-07-14 17:00 | PM.PN.1 ---
Subjective Subjective Date Patient Seen: 07/14/21 Interval history: Postop day 4 lumbar fusion. Confusion seems to have cleared up. She is quite alert this morning. She denies having any pain and being managed on just Tylenol. Vitals have been stable and she is medically stable to go to SNF. I did speak to her daughter by phone and reviewed discharge medications and added quite a few as needed/OTC meds which she was taking at home and family member wanted it to be continued. Exam Vital Signs (past 8 hours): - 07/14/21 11:00 Temperature 98.3 F Pulse Rate 59 L Respiratory Rate 16 Blood Pressure 147/59 H Pulse Oximetry 97 Oxygen Delivery Method Room Air Oxygen Flow Rate 0 Narrative Exam Narrative: General: Alert and in no distress, breathing comfortably Objective Labs Result Diagrams: 07/12/21 10:07 07/12/21 10:07 Labs: Laboratory Results - last 24 hr 07/14/21 09:43 SARS-CoV-2 (PCR) Negative PFSH Medical History Arthritis Godfrey's esophagus CAD (coronary artery disease) Carotid artery disease CKD (chronic kidney disease) Depression Diabetes Gastric ulcer GERD (gastroesophageal reflux disease) HLD (hyperlipidemia) HTN (hypertension) Itch of skin Parkinson disease Poor balance Presence of device Tremor of both hands Surgical History History of arthroplasty of left knee (~2015) History of bladder surgery History of hysterectomy History of lumbar surgery Hx of bilateral cataract extraction Hx of breast reduction, elective Hx of cardiac cath (2011) Hx of fusion of cervical spine (09/27/19) Hx of hernia repair Hx of left breast biopsy Hx of toe surgery Hx of tonsillectomy Hx of unilateral oophorectomy Family History Mother Cancer Social History marital status: household members: children Smoking Status: Former smoker alcohol intake: former Assessment & Plan Assessment & Plan narrative: 1.? Acute metabolic/toxic encephalopathy -resolving with stopping her sedating and anticholinergic medications. -restarted gabapentin since this was a chronic home medication -seems to be doing well with just Tylenol for postop pain -completed 2 L LR -discharged to SNF 2. Parkinson's disease -appears stable on her Sinemet 3. Type 2 diabetes diet controlled 4. Postop lumbar fusion Time Spent With Patient Critical Care time: I spent a total of [] minutes of critical care time on this patient's care today; this time is exclusive of procedural time.
== END 2021-07-14 12:05 | DRG 453 ==
LOC: OR 12:08 → AC 12:08
PROVIDERS: Family Medicine; Orthopaedic Surgery; Physician Assistant Medical; Admitting Provider Orthopaedic Surgery Orthopaedic Surgery of the Spine; PCP Family Medicine; Referring Provider Orthopaedic Surgery Orthopaedic Surgery of the Spine; Visit Provider Orthopaedic Surgery Orthopaedic Surgery of the Spine
PROC: 0SG00AJ Fusion of Lumbar Vertebral Joint with Interbody Fusion Device, Posterior Approach, Anterior Column, Open Approach (ICD-10-PCS; principal; 2021-07-10 13:45)
DX: M48.062 Spinal stenosis, lumbar region with neurogenic claudication (principal); G92.8 Other toxic encephalopathy; M47.26 Other spondylosis with radiculopathy, lumbar region; E86.0 Dehydration; G20 Parkinson's disease; F32.A Depression, unspecified; K21.9 Gastro-esophageal reflux disease without esophagitis; E78.5 Hyperlipidemia, unspecified; Z20.822 Contact with and (suspected) exposure to COVID-19
CPT/HCPCS: 36415; 72100; 76000; 80053; 81001; 82962; 85025; 87635; 97162; 97166; 97530; 97535; C9803; C1713; C1831; C9290; J0131; J0171; J0330; J0690; J1100; J1170; J2250; J2405; J2704; J3010

== ENCOUNTER → 2021-07-29 10:56 | Outpatient (ROUT) | payer MEDICARE, OTHER, SELFPAY ==
[2021-07-10 21:15] VITALS: BMI 30.9
[2021-07-29 11:24] LABS: Appearance Urine UA CLOUDY; Bilirubin Urine UA NEGATIVE (NEGATIVE); Color Urine UA YELLOW; Glucose Urine UA NEGATIVE (Negative); Ketones Urine UA TRACE (NEGATIVE); Leukocyte Esterase Urine UA 3+ (NEGATIVE); Nitrite Urine UA POSITIVE (Negative); Occult Blood Urine UA 2+ (Negative); Protein Urine UA 1+ (Negative); Specific Gravity Urine UA 1.015 (1.000-1.035); Urobilinogen Urine UA 0.2 E.U./dL (0.2)
[2021-07-29 11:25] LABS: pH Urine UA 5.5 (4.5-8.0)
[2021-07-29 11:36] LABS: Bacteria Urine Many (>30); Culture Indicated Urine Specimen Cultured; RBC Urine 1-5/HPF (0-5/HPF); Squamous Epithelial Cell Urine 0-1 /HPF (0-5/HPF); WBC Urine >100/HPF (0-5/HPF)
== END ==
PROVIDERS: PCP Family Medicine; Visit Provider Emergency Medicine
DX: Z47.89 Encounter for other orthopedic aftercare (principal); G20 Parkinson's disease; E11.9 Type 2 diabetes mellitus without complications
CPT/HCPCS: 81001; 87077; 87086; 87186

== ENCOUNTER → 2022-07-22 13:45 | Outpatient (CLI) | payer MEDICARE, SELFPAY ==
[2021-07-10 21:15] VITALS: BMI 30.9
--- NOTE | 2022-07-22 13:48 | DI.RAD.S_ITS ---
PROCEDURE: XR CERVICAL SPINE 4V OR 5V INDICATIONS: neck pain TECHNIQUE: 5 views of the cervical spine acquired. COMPARISON: [facility], CR, XR CERVICAL SPINE 2V OR 3V, 09/27/2019, 12:54. FINDINGS: Bones: No fractures or dislocations to the C7 level. Multilevel disc space narrowing and endplate osteophyte formation, as well as facet hypertrophy. Interbody device/anterior fusion hardware at C5-C6. Soft tissues: No prevertebral soft tissue swelling. IMPRESSION: 1. Postsurgical sequelae. 2. Multilevel degenerative disc and facet disease. 3. No acute fracture. No osseous lesion. If symptoms and/or clinical suspicion for pathology persist, further assessment with repeat, or advanced imaging (e.g., CT, MRI, or bone scan) may be helpful for further assessment. Dictated by: Ramírez Mesa M.D. on 07/22/2022 at 14:53 Transcribed by: MY on 07/22/2022 at 14:54 Approved by: Ramírez Mesa M.D. on 07/22/2022 at 16:54
== END ==
PROVIDERS: PCP Family Medicine; Referring Provider Anesthesiology; Visit Provider Anesthesiology
DX: M47.812 Spondylosis without myelopathy or radiculopathy, cervical region (principal); M50.30 Other cervical disc degeneration, unspecified cervical region; M47.816 Spondylosis without myelopathy or radiculopathy, lumbar region; M54.50 Low back pain, unspecified; Z98.1 Arthrodesis status
CPT/HCPCS: 72050; 99214

== ENCOUNTER 2022-10-01 08:21 | Outpatient (CLI) | payer MEDICARE, SELFPAY ==
[2021-07-10 21:15] VITALS: BMI 30.9
--- NOTE | 2022-10-01 08:23 | DI.RAD.S_ITS ---
PROCEDURE: PAIN L/S FACET INJ/BLK 1ST GAVIN COMPARISON: [facility], CT, CT LUMBAR SPINE WITHOUT CONTRAST, 05/16/2022, 9:06. INDICATIONS: SPONDYLOSIS FINDINGS: Fluoroscopic spot filming was performed to verify placement of spinal needles on both sides at the L5 and S1 levels, as labeled on the films, which target the L4 and L5 nerves. Appropriate location of the needle tips was confirmed by injection of iodinated contrast. IMPRESSION: Intraprocedural examination demonstrating appropriate positions of the needles. Dictated by: Casimiro Quinteros M.D. on 10/02/2022 at 14:41 Approved by: Casimiro Quinteros M.D. on 10/02/2022 at 14:42
[2022-10-01 08:50] VITALS: BP 141/63; PULSE 53; RESP 18; TEMP 36.4; O2SAT 98
[2022-10-01 09:07] VITALS: BP 135/61; PULSE 58; RESP 15; O2SAT 100
[2022-10-01] MEDS: BUPIVACAINE 0.5% (PF) 10 ML VIAL 5 ML INJ (09:09)
[2022-10-01] MEDS: IOPAMIDOL 15 ML VIAL 3 ML INJ (09:10)
[2022-10-01 09:12] VITALS: BP 140/61; PULSE 53; RESP 17; O2SAT 100
[2022-10-01 09:22] VITALS: BP 134/63; PULSE 54; RESP 18; O2SAT 99
--- NOTE | 2022-10-01 12:00 | P.PCN_ITS ---
Date/Time/Diagnoses Date of procedure: 10/01/22 Time of procedure: 09:00 Procedure Notes Physician: Lalito Newman Total Fluoroscopy time (seconds): 15 Total sedation minutes: 0 Procedure in detail & Post-procedure care: Bilateral L4, 5 Lumbar Medial Branch Blocks Indications: Louise is presenting for treatment of lumbar spondylosis with low back pain. Preoperative diagnosis: Bilateral lumbar spondylosis Postoperative diagnosis: Same Pre-procedure History: Patient demonstrates today moderate to severe non- radicular back pain without neurologic deficit aggravated by hyperextension yes Back pain greater than leg pain? yes Patient today has tenderness over the suspected joint(s) yes History of post-traumatic injury? no Hypertrophic arthropathy yes Back pain associated with suspected motion segment instability, hypermobility or pseudoarthrosis no Pre-testing pain score (VAS): 5/10 with Grace's Focused Examination: Ax3 Mood and affect are normal Vital Signs: VSS Consent: Following review of allergies and potential side effects/complications, including, but not necessarily limited to, infection, allergic reaction, local tissue breakdown, stroke, temporary or permanent nerve injury, paralysis, and possible , the patient indicated that they understood and agreed to proceed.? An informed consent document was signed by the patient, witnessed by a nurse and placed in the patient's chart.? Additionally, other treatment options including medications and physical therapy were reviewed with the patient. All questions were answered. Site was then marked. Anesthesia: Local Position: Prone Monitoring: NIBP, Pulse oximetry, 3 lead EKG Needle used: 22 ga 3.5 inch spinal needle Contrast: Isovue 300M Injectate: 0.5% bupivacaine 1 mL per site Procedure: The patient was brought into the procedure room and positioned into the prone position. Skin was prepped with a Chloraprep solution, allowed to air dry, and then draped in sterile fashion.? The right L5-S1 facet joints were visually identified with fluoroscopy. Lidocaine 1% was used to anesthetize the skin over each target destination with a 25ga needle. A 22 ga, 3.5 inch spinal needle was advanced to the location of the medial branch at the junction of the superior articular process and the transverse process at L5 and the base of the SAP of the sacrum using intermittent fluoroscopy in the AP view. Isovue 300M contrast 0.2ml was injected at each level outlining the medial borders for each level and the base of the SAP of the sacrum in the AP and lateral views. There was no evidence of vascular or intrathecal uptake. The above injectate was slowly injected at each target destination. The left L5-S1 facet joints were visually identified with fluoroscopy. Lidocaine 1% was used to anesthetize the skin over each target destination with a 25ga needle. A 22 ga, 3.5 inch spinal needle was advanced to the location of the medial branch at the junction of the superior articular process and the transverse process at L5 and the base of the SAP of the sacrum using intermittent fluoroscopy in the AP view. Isovue 300M contrast 0.2ml was injected at each level outlining the medial borders for each level and the base of the SAP of the sacrum in the AP and lateral views. There was no evidence of vascular or intrathecal uptake. The above injectate was slowly injected at each target destination. At the end of the procedure the needles were withdrawn and Band- Aids were applied for a dressing. At the end of the procedure the needles were withdrawn and Band-Aids were applied for a dressing. Post Procedure: Patient was taken to the recovery and monitored. The patient was provided a Pain Log to continue to record the patient's response to the target- specific procedure prior to the patient's follow-up visit with the referring physician. Patient was stable upon discharge. Detailed post procedure instructions were provided. Patient was asked to call in the event of worsening pain, fever, weakness, numbness or bladder or bowel incontinence. Postoperatively, today patient demonstrates the following changes with hyperextension and with tenderness over the suspected joint(s). Provacative testing using the Grace's facet loading test Right side Left side Directly before the block ?VAS (0-10) = 5/10 VAS (0-10) = 5/10 5 minutes after the block VAS (0-10) = 0/10 VAS (0-10) = 0/10 Percentage relief obtained with this diagnostic block 100% 100% Any improved physical functioning directly after the blocks? Range of motion Based on the medial branches blocked today, if the patient meets insurance criteria for radiofrequency, the treatment should result in the denervation of the bilateral L5-S1 facet joint nerves. We would expect to denervate a total of 2 facets during the radiofrequency ablation.
== END 2022-10-01 09:30 | disposition home or self-care (01) ==
LOC: RAD 08:22
PROVIDERS: PCP Family Medicine; Referring Provider Anesthesiology; Visit Provider Anesthesiology
DX: M47.816 Spondylosis without myelopathy or radiculopathy, lumbar region (principal)
CPT/HCPCS: 64493

== ENCOUNTER 2022-11-19 13:07 | Outpatient (CLI) | payer MEDICARE, SELFPAY ==
[2021-07-10 21:15] VITALS: BMI 30.9
--- NOTE | 2022-11-19 13:08 | DI.RAD.S_ITS ---
PROCEDURE: PAIN L/S FACET INJ/BLK 1ST GAVIN INDICATIONS: SPONDYLOSIS COMPARISON: [facility], , PAIN L/S FACET INJ/BLK 1ST GAVIN, 10/01/2022, 9:07. FINDINGS: Fluoroscopic spot filming was performed to verify placement of spinal needles on both sides at the L4 and L5 levels, as labeled on the films. Appropriate location of the needle tips was confirmed by injection of iodinated contrast. IMPRESSION: Intraprocedural examination demonstrating appropriate positions of the needles. Dictated by: Casimiro Quinteros M.D. on 11/19/2022 at 17:54 Approved by: Casimiro Quinteros M.D. on 11/19/2022 at 17:54
[2022-11-19 13:25] VITALS: BP 116/56; PULSE 59; RESP 18; TEMP 36.6; O2SAT 96
[2022-11-19 13:46] VITALS: BP 112/51; PULSE 66; RESP 15; O2SAT 95
[2022-11-19] MEDS: LIDOCAINE 2% INJ MDV 20ML 5 ML INJ (13:48)
[2022-11-19] MEDS: iopamidoL 15 ML VIAL 3 ML INJ (13:48)
[2022-11-19 13:51] VITALS: BP 119/55; PULSE 58; RESP 17; O2SAT 97
[2022-11-19 13:56] VITALS: BP 127/59; PULSE 64; RESP 19; O2SAT 97
[2022-11-19 13:58] VITALS: BP 137/62; PULSE 61; RESP 16; O2SAT 97
[2022-11-19 14:04] VITALS: BP 118/56; PULSE 59; RESP 20; O2SAT 96
--- NOTE | 2022-11-19 14:21 | PC.NURSE ---
Green pain log and discharge instructions reviewed with patient's sister, Radha, on discharge.
--- NOTE | 2022-11-19 16:34 | P.PCN_ITS ---
Date/Time/Diagnoses Date of procedure: 11/19/22 Time of procedure: 13:30 Procedure Notes Physician: Lalito Newman Total Fluoroscopy time (seconds): 23 Total sedation minutes: 0 Procedure in detail & Post-procedure care: Bilateral L4, 5 Lumbar Medial Branch Blocks Indications: Louise is presenting for treatment of lumbar spondylosis with low back pain. Preoperative diagnosis: Lumbar spondylosis Postoperative diagnosis: Same Pre-procedure History: Patient demonstrates today moderate to severe non- radicular back pain without neurologic deficit aggravated by hyperextension yes Back pain greater than leg pain? yes Patient today has tenderness over the suspected joint(s) yes History of post-traumatic injury? no Hypertrophic arthropathy yes Back pain associated with suspected motion segment instability, hypermobility or pseudoarthrosis no Pre-testing pain score (VAS): 10/10 Focused Examination: Ax3 Mood and affect are normal Vital Signs: VSS Consent: Following review of allergies and potential side effects/complications, including, but not necessarily limited to, infection, allergic reaction, local tissue breakdown, stroke, temporary or permanent nerve injury, paralysis, and possible , the patient indicated that they understood and agreed to proceed.? An informed consent document was signed by the patient, witnessed by a nurse and placed in the patient's chart.? Additionally, other treatment options including medications and physical therapy were reviewed with the patient. All questions were answered. Site was then marked. Anesthesia: Local Position: Prone Monitoring: NIBP, Pulse oximetry, 3 lead EKG Needle used: 22 ga 3.5 inch spinal needle Contrast: Isovue 300M Injectate: 2% lidocaine 1 mL per site Procedure: The patient was brought into the procedure room and positioned into the prone position. Skin was prepped with a Chloraprep solution, allowed to air dry, and then draped in sterile fashion.? The right L5-S1 facet joints were visually identified with fluoroscopy. Lidocaine 1% was used to anesthetize the skin over each target destination with a 25ga needle. A 22 ga, 3.5 inch spinal needle was advanced to the location of the medial branch at the junction of the superior articular process and the transverse process at L5 and the base of the SAP of the sacrum using intermittent fluoroscopy in the AP view. Isovue 300M contrast 0.2ml was injected at each level outlining the medial borders for each level and the base of the SAP of the sacrum in the AP and lateral views. There was no evidence of vascular or intrathecal uptake. The above injectate was slowly injected at each target destination. The left L5-S1 facet joints were visually identified with fluoroscopy. Lidocaine 1% was used to anesthetize the skin over each target destination with a 25ga needle. A 22 ga, 3.5 inch spinal needle was advanced to the location of the medial branch at the junction of the superior articular process and the transverse process at L5 and the base of the SAP of the sacrum using intermittent fluoroscopy in the AP view. Isovue 300M contrast 0.2ml was injected at each level outlining the medial borders for each level and the base of the SAP of the sacrum in the AP and lateral views. There was no evidence of vascular or intrathecal uptake. The above injectate was slowly injected at each target destination. At the end of the procedure the needles were withdrawn and Band- Aids were applied for a dressing. Post Procedure: Patient was taken to the recovery and monitored. The patient was provided a Pain Log to continue to record the patient's response to the target- specific procedure prior to the patient's follow-up visit with the referring physician. Patient was stable upon discharge. Detailed post procedure instructions were provided. Patient was asked to call in the event of worsening pain, fever, weakness, numbness or bladder or bowel incontinence. Postoperatively, today patient demonstrates the following changes with hyperextension and with tenderness over the suspected joint(s). Provacative testing using the Grace's facet loading test Right side Left side Directly before the block ?VAS (0-10) = 10/10 VAS (0-10) = 10/10 5 minutes after the block VAS (0-10) = 0/10 VAS (0-10) = 0/10 Percentage relief obtained with this diagnostic block 100% 100% Any improved physical functioning directly after the blocks? Range of motion Based on the medial branches blocked today, if the patient meets insurance criteria for radiofrequency, the treatment should result in the denervation of the bilateral L5-S1 facet joint nerves. We would expect to denervate a total of 2 facets during the radiofrequency ablation.
== END 2022-11-19 14:16 | disposition home or self-care (01) ==
LOC: RAD 13:07
PROVIDERS: PCP Family Medicine; Referring Provider Anesthesiology; Visit Provider Anesthesiology
DX: M47.816 Spondylosis without myelopathy or radiculopathy, lumbar region (principal)
CPT/HCPCS: 64493

== ENCOUNTER 2022-12-31 09:55 | Outpatient (CLI) | payer MEDICARE, SELFPAY ==
[2021-07-10 21:15] VITALS: BMI 30.9
[2022-12-31] VITALS (9 sets, daily range): BP systolic 130–152; BP diastolic 57–67; PULSE 52–56; RESP 12–22; TEMP 36.6; O2SAT 97–98
--- NOTE | 2022-12-31 09:57 | DI.RAD.S_ITS ---
PROCEDURE: PAIN L/S MED/LAT N RFA BILAT INDICATIONS: SPONDYLOSIS COMPARISON: None. FINDINGS: Fluoroscopic spot filming was performed to verify placement of spinal needles at the bilateral L4-5 level(s), as labeled on the films. IMPRESSION: Fluoroscopic images demonstrating bilateral L4-5 intervention. Dictated by: Thomas Recinos M.D. on 12/31/2022 at 14:35 Approved by: Thomas Recinos M.D. on 12/31/2022 at 14:36
[2022-12-31] MEDS: MIDAZOLAM 2 MG/2 ML VIAL 0.5 MG IV (11:17)
[2022-12-31] MEDS: LIDOCAINE 2% INJ MDV 20ML 5 ML INJ (11:18)
[2022-12-31] MEDS: BUPIVACAINE 0.5% (PF) 10 ML VIAL 5 ML INJ (11:18)
[2022-12-31] MEDS: DEXAMETHASONE 10 MG/ML VIAL INJ (11:18)
--- NOTE | 2022-12-31 12:38 | P.PCN_ITS ---
Date/Time/Diagnoses Date of procedure: 12/31/22 Time of procedure: 11:00 Procedure Notes Physician: Lalito Newman Total Fluoroscopy time (seconds): 22 Total sedation minutes: 26 Procedure in detail & Post-procedure care: Bilateral L4, 5 Lumbar Medial Branch Radio Frequency Ablation Indications: Louise presents for treatment of lumbar spondylosis with low back pain. Preoperative diagnosis: Lumbar spondylosis Postoperative diagnosis: Same Focused Examination: Ax3 Mood and affect are normal Vital Signs: VSS ASA: 2 Consent: Following review of allergies and potential side effects/complications, including, but not necessarily limited to, infection, allergic reaction, local tissue breakdown, stroke, temporary or permanent nerve injury, paralysis, and possible , the patient indicated that they understood and agreed to proceed.? An informed consent document was signed by the patient, witnessed by a nurse and placed in the patient's chart.? Additionally, other treatment options including medications and physical therapy were reviewed with the patient. All questions were answered. Site was then marked. Anesthesia: Local with IV sedation. After review of previous anesthetic history and IV conscious sedation, the patient was deemed safe to proceed with today's procedure with IV conscious sedation. IV sedation was accomplished with midazolam 0.5 mg administered by the RN after order by Dr. Newman. Sedation was titrated to patient comfort during the course of the procedure. Patient remained responsive to all verbal commands. Position: Prone Monitoring: NIBP, Pulse oximetry, 3 lead EKG Needle used: 18 guage, 100 mm, 10 mm active tip Procedure: The patient was brought into the procedure room and positioned into the prone position. Skin was prepped with a Chloraprep solution, allowed to air dry, and then draped in sterile fashion.? The right L5-S1 facet joints were visually identified with fluoroscopy. Lidocaine 1% was used to anesthetize the skin over each target destination with a 25ga needle. An 18 ga, 100 mm RFA needle with a 10 mm active tip was advanced to the location of the medial branch at the junction of the superior articular process and the transverse process at L5 and the base of the SAP of the sacrum using intermittent fluoroscopy in the oblique view with caudal tilt. AP and lateral radiographs were taken to confirm proper needle placement. No paresthesias were noted. The stylet was removed and the radiofrequency probe was inserted through the cannula. Each level was individually tested.? Motor stimulation up to 2V elicited multifidus twitching in the lumbar spine. There was no motor stimulation in the lower extremities. After negative aspiration, 1ml of 2% lidocaine was injected at each of the levels and radiofrequency denervation carried out using 80 degrees Celsius for 90 seconds. The needles were then rotated 90 degrees and a second ablation was performed at 80 degrees Celsius for 90 seconds. Next, the left L5-S1 facet joints were visually identified with fluoroscopy. Lidocaine 1% was used to anesthetize the skin over each target destination with a 25ga needle. An 18 ga, 100 mm RFA needle with a 10 mm active tip was advanced to the location of the medial branch at the junction of the superior articular process and the transverse process at L5 and the base of the SAP of the sacrum using intermittent fluoroscopy in the oblique view with caudal tilt. AP and lateral radiographs were taken to confirm proper needle placement. No paresthesias were noted. The stylet was removed and the radiofrequency probe was inserted through the cannula. Each level was individually tested. Motor stimulation up to 2V elicited multifidus twitching in the lumbar spine. There was no motor stimulation in the lower extremities. After negative aspiration, 1ml of 2% lidocaine was injected at each of the levels and radiofrequency denervation carried out using 80 degrees Celsius for 90 seconds. The needles were then rotated 90 degrees and a second ablation was performed at 80 degrees Celsius for 90 seconds. After ablation, a mixture of 10 mg dexamethasone with 0.5% bupivacaine 5 mL was injected in equal amounts among the sites (1 mL per site). At the end of the procedure the needles were withdrawn and Band-Aids were applied for a dressing. This procedure is expected to denervate the bilateral L5-S1 facet joints. Post Procedure: Patient was taken to the recovery and monitored. The patient was provided a Pain Log to continue to record the patient's response to the target- specific procedure prior to the patient's follow-up visit with the referring physician. Patient was stable upon discharge. Detailed post procedure instructions were provided. Patient was asked to call in the event of worsening pain, fever, weakness, numbness or bladder or bowel incontinence. Complications: None
== END 2022-12-31 12:04 | disposition home or self-care (01) ==
LOC: RAD 09:56
PROVIDERS: PCP Family Medicine; Referring Provider Anesthesiology; Visit Provider Anesthesiology
DX: M47.816 Spondylosis without myelopathy or radiculopathy, lumbar region (principal)
CPT/HCPCS: 64635; 82962; 99152; 99153; J1100; J2250